=== PATIENT | male | born 1955 ===

== ENCOUNTER 2020-07-15 10:44 | Outpatient (REF) | payer MEDICARE, SELFPAY | END 2020-07-15 10:45 | disposition home or self-care (01) | LOC: HO.LAB 10:44 | PROVIDERS: Visit Provider Internal Medicine | DX: Z20.828 Contact with and (suspected) exposure to other viral communicable diseases (principal) | CPT/HCPCS: C9803; U0003 ==

== ENCOUNTER 2021-01-19 07:12 | Outpatient (REF) | payer MEDICARE, SELFPAY ==
[2021-01-19 08:03] LABS: Cholesterol 139 mg/dL; HDL Cholesterol 59 mg/dL; LDL Cholesterol Calculated 71 mg/dl; Triglycerides 48 mg/dL
== END 2021-01-19 07:13 | disposition home or self-care (01) ==
LOC: HO.LAB 07:12
PROVIDERS: PCP Internal Medicine; Visit Provider Internal Medicine Cardiovascular Disease
DX: I25.10 Atherosclerotic heart disease of native coronary artery without angina pectoris (principal); E78.00 Pure hypercholesterolemia, unspecified
CPT/HCPCS: 36415; 80061

== ENCOUNTER → 2021-01-25 08:11 | Outpatient (BNVA) | payer MEDICARE, SELFPAY | PROVIDERS: PCP Internal Medicine; Visit Provider Internal Medicine Cardiovascular Disease | DX: I25.10 Atherosclerotic heart disease of native coronary artery without angina pectoris (principal); E78.00 Pure hypercholesterolemia, unspecified; Z82.49 Family history of ischemic heart disease and other diseases of the circulatory system | CPT/HCPCS: 93005; 99212 ==

== ENCOUNTER 2021-01-26 13:48 | Emergency (ER) | payer OTHER, MEDICARE, SELFPAY ==
--- NOTE | 2021-01-26 | ECG_ITS ---
Test Reason : CHEST PAIN Blood Pressure : / mmHG Vent. Rate : 096 BPM Atrial Rate : 096 BPM P-R Int : 178 ms QRS Dur : 080 ms QT Int : 342 ms P-R-T Axes : 061 -53 047 degrees QTc Int : 432 ms Normal sinus rhythm Possible Left atrial enlargement Left axis deviation Abnormal ECG When compared with ECG of 03-SEP-2001 22:18, Vent. rate has increased BY 39 BPM Left axis deviation Referred By: Mariia Luu Electronically Signed By:Nakul Sauceda
--- NOTE | ~2021-01-26 | XR_ITS ---
EXAMINATION: XR CHEST CLINICAL INFORMATION: Chest pain COMPARISON: Chest 04/12/2020 TECHNIQUE: Frontal view of the chest was obtained. FINDINGS: No significant abnormality is noted involving the heart, lungs, mediastinum, bony thorax or soft tissues. XR/XR chest 1V IMPRESSION: Unremarkable chest examination. No change from previous study 04/12/2020
[2021-01-26 13:56] VITALS: BP 126/78; BP 134/86; PULSE 102; PULSE 93; RESP 16; TEMP 36.6; O2SAT 100; O2SAT 97; BMI 24.3
--- NOTE | 2021-01-26 13:56 | ED.CHESTPAIN ---
HPI - Chest Pain General Chief Complaint: Chest Pain Stated Complaint: UNKNOWN Time Seen by Provider: 01/26/21 13:56 Source: patient and EMS Mode of arrival: EMS Limitations: no limitations History of Present Illness HPI narrative: 65 yo male with hx of HLD, fam hx of CAD, known CAD with 2009 cath showing chronic total occlusion of L circ with collaterals as well as 70% lesion in mid LAD has been managed medically for years, had chest pain/nausea and dizziness at home has been doing a lot of work, was near syncopal feels dehydrated from working outside MD complaint: chest pain Pertinent past history: coronary artery disease Onset (ago): minute(s) Timing of current episode: now resolved Prior episodes: No Onset: during rest (occurred while he was going to eat but did do work at home earlier) Pain location: left chest Pain radiation: none Severity: moderate Quality: heaviness Relieving factors: rest Exacerbating factors: exertion (has been exerting himself but also 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, no symptoms yesterday while working) Associated symptoms: nausea and dyspnea Treatment prior to arrival: aspirin Related Data Home Medications Medication Instructions Recorded Confirmed aspirin 81 mg tablet,delayed 81 mg PO DAILY 01/25/21 01/25/21 release atorvastatin 80 mg tablet 40 mg PO BEDTIME tab 01/25/21 01/25/21 cholecalciferol (vitamin D3) 25 25 mcg PO DAILY 01/25/21 01/25/21 mcg (1,000 unit) capsule Allergies Allergy/AdvReac Type Severity Reaction Status Date / Time shellfish derived Allergy Intermediate HIVES Verified 01/26/21 14:02 [SHELLFISH DERIVED] shellfish Allergy Unknown hives Uncoded 03/03/20 00:00 Review of Systems Review of Systems: Constitutional : No Weight loss, No Fever, No Chills ENT/Mouth : No sore throat, No Rhinorrhea Eyes: No Eye Pain, No Swelling Cardiovascular : pos Chest Pain, pos SOB, no Dyspnea on Exertion, No Orthopnea, No Edema, No Palpitations Respiratory : No Cough, No Sputum Gastrointestinal : pos Nausea, No Vomiting, No Diarrhea, No abdominal Pain, No Hematochezia, No Melena Genitourinary : No Dysuria, No Urinary Frequency Musculoskeletal : No joint pain, No Myalgias, No Joint Swelling Skin : No Skin Lesions, No rash Neuro : No Weakness, No Numbness, No Dizziness, No Headache Psych : No Anxiety/Panic, No Depression Heme/Lymph: No Bruising, No Lymphadenopathy Endocrine : No Polyuria, No Polydipsia All other systems reviewed and are negative [facility] Past Medical History Medical History Allergic rhinitis Coronary artery disease Erectile dysfunction Hypercholesterolemia Hypertension Vitamin D deficiency Surgical History History of hernia repair Hx of CABG Family History Family History (Updated 01/25/21 @ 08:44 by Edith Xiao Jose) Father Diabetes Mother CVD (cardiovascular disease) Social History Social History (Updated 01/26/21 @ 14:17 by Mariia Luu DO) Alcohol intake: current Alcohol intake frequency: a few times a month Patient Tobacco Use Status: Never used Tobacco Use of substances other than those prescribed or required for medical reasons: No Advance Directives: No Advance Directives Information Provided: Yes Physical Exam Vital Signs: Vital Signs: Last Vital Signs Temp 98 F 01/26/21 13:56 Pulse 70 01/26/21 15:15 Resp 12 01/26/21 15:15 BP 126/79 01/26/21 15:15 Pulse Ox 100 01/26/21 15:15 Body Mass Index 24.3 Appearance: Alert. Oriented X3. No acute distress. Eyes: Pupils equal, round and reactive to light. ENT: Pharynx normal. Neck: Normal inspection. Neck supple. CVS: Normal heart rate and rhythm. Pulses normal. Respiratory: No respiratory distress. Breath sounds normal. Abdomen: Soft and nontender. Skin: Skin warm and dry. Normal skin color. Normal skin turgor. Extremities: No lower extremity edema. No calf ttp Neuro: Oriented X 3. No motor deficit. No sensory deficit. Course Course Course Narrative: signed out to Dr. 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 Lab Data Result diagrams: 01/26/21 14:09 01/26/21 14:09 Labs: Lab Results 01/26/21 01/26/21 01/26/21 Range/Units 14:09 14:09 14:09 WBC 4.2 L (4.8-10.8) X10*3/uL RBC 4.25 L (4.60-5.80) X10*6/uL Hgb 13.7 L (14.0-18.0) g/dl Hct 40.5 L (42-52) % MCV 95.3 (80-98) fL MCH 32.2 (27.0-33.0) pg MCHC 33.8 (31.0-36.0) g/dl RDW 12.6 (11.0-16.0) % Plt Count 162 (160-400) X10*3/uL MPV 9.7 (9.4-12.4) fL Immature Gran % (Auto) 0.0 (0.0-0.4) % Neut % (Auto) 41.0 L (45-73) % Lymph % (Auto) 43.5 H (20-40) % [place] % (Auto) 11.1 H (2-11) % Eos % (Auto) 3.4 (0-4) % Baso % (Auto) 1.0 (0-2) % Lymph # (Auto) 1.8 (1.2-4.9) X10*3/uL [place] # (Auto) 0.5 (0.1-1.2) X10*3/uL Eos # (Auto) 0.1 (0.0-0.4) X10*3/uL Baso # (Auto) 0.0 (0.0-0.2) X10*3/uL Abs Immat Gran (auto) 0.00 (0.00-0.03) X10*3/uL Absolute Neuts (auto) 1.7 L (2.0-8.3) X10*3/uL Absolute Nucleated RBC 0.000 (0.0-0.012) X10*3/uL Nucleated RBC % (auto) 0.0 (0.0-0.2) /100WBC Hold Blue Top SEE NOTE Sodium 140 (135-145) mmol/L Potassium 4.2 (3.3-5.1) mmol/L Chloride 106 (96-108) mmol/L Carbon Dioxide 28 (22-29) mmol/L Anion Gap 10 L (12-20) BUN 20 H (9-16) mg/dL Creatinine 1.32 (0.5-1.4) mg/dL Estim Creat Clear Calc 60.4 Estimated GFR 54 Random Glucose 109 (60-115) mg/dL Calcium 9.6 (8.4-10.2) mg/dL Magnesium 2.1 (1.6-2.6) mg/dL Total Bilirubin 1.2 H (0.0-1.0) mg/dL Direct Bilirubin 0.5 (0.0-0.5) mg/dL AST 28 (5-37) U/L ALT 34 (0-40) U/L Alkaline Phosphatase 105 (39-117) U/L Troponin I High Sens (<3.5-35.0) ng/L Total Protein 6.3 L (6.5-8.0) g/dL Albumin 4.0 (3.5-5.0) g/dL Lipase 29 (8-78) U/L Urine Color Urine Appearance Urine pH (5.0-8.0) Ur Specific [place] (1.005-1.025) Urine Protein (NEG-TRACE) MG/DL Urine Glucose (UA) (NEG) MG/DL Urine Ketones (NEG) MG/DL Urine Blood (NEG) Urine Nitrite (NEG) Ur Leukocyte Esterase (NEG) 01/26/21 01/26/21 Range/Units 14:09 14:19 WBC (4.8-10.8) X10*3/uL RBC (4.60-5.80) X10*6/uL Hgb (14.0-18.0) g/dl Hct (42-52) % MCV (80-98) fL MCH (27.0-33.0) pg MCHC (31.0-36.0) g/dl RDW (11.0-16.0) % Plt Count (160-400) X10*3/uL MPV (9.4-12.4) fL Immature Gran % (Auto) (0.0-0.4) % Neut % (Auto) (45-73) % Lymph % (Auto) (20-40) % [place] % (Auto) (2-11) % Eos % (Auto) (0-4) % Baso % (Auto) (0-2) % Lymph # (Auto) (1.2-4.9) X10*3/uL [place] # (Auto) (0.1-1.2) X10*3/uL Eos # (Auto) (0.0-0.4) X10*3/uL Baso # (Auto) (0.0-0.2) X10*3/uL Abs Immat Gran (auto) (0.00-0.03) X10*3/uL Absolute Neuts (auto) (2.0-8.3) X10*3/uL Absolute Nucleated RBC (0.0-0.012) X10*3/uL Nucleated RBC % (auto) (0.0-0.2) /100WBC Hold Blue Top Sodium (135-145) mmol/L Potassium (3.3-5.1) mmol/L Chloride (96-108) mmol/L Carbon Dioxide (22-29) mmol/L Anion Gap (12-20) BUN (9-16) mg/dL Creatinine (0.5-1.4) mg/dL Estim Creat Clear Calc Estimated GFR Random Glucose (60-115) mg/dL Calcium (8.4-10.2) mg/dL Magnesium (1.6-2.6) mg/dL Total Bilirubin (0.0-1.0) mg/dL Direct Bilirubin (0.0-0.5) mg/dL AST (5-37) U/L ALT (0-40) U/L Alkaline Phosphatase (39-117) U/L Troponin I High Sens < 3.5 (<3.5-35.0) ng/L Total Protein (6.5-8.0) g/dL Albumin (3.5-5.0) g/dL Lipase (8-78) U/L Urine Color YELLOW Urine Appearance CLEAR Urine pH 6.5 (5.0-8.0) Ur Specific [place] 1.020 (1.005-1.025) Urine Protein NEG (NEG-TRACE) MG/DL Urine Glucose (UA) NEG (NEG) MG/DL Urine Ketones NEG (NEG) MG/DL Urine Blood NEG (NEG) Urine Nitrite NEG (NEG) Ur Leukocyte Esterase NEG (NEG) ECG Data ECG #1: Attestation: I personally reviewed and interpreted this ECG as follows: ECG interpretation date: 01/26/21 ECG interpretation time: 14:17 Interpretation: Rate: 96 Rhythm: NSR [place]: left Normal P waves. Normal REJI. Normal QRS complex. ST T wave : nonspecific, NO MARIBELL qTC: normal prior studies: no acute ischemia The study has been interpreted contemporaneously by me. . Discharge Plan Discharge Clinical Impression: Near syncope Chest pain Qualifiers: Chest pain type: unspecified Qualified Code(s): R07.9 - Chest pain, unspecified Prescriptions: No Action aspirin [Adult Low Dose Aspirin] 81 mg tablet,delayed release (DR/EC) 81 mg PO DAILY RF: 0 cholecalciferol (vitamin D3) 25 mcg (1,000 unit) capsule 25 mcg PO DAILY RF: 0 atorvastatin 80 mg tablet 40 mg PO BEDTIME RF: 0
[2021-01-26 14:13] LABS: MANUAL DIFF FLAG NO
[2021-01-26 14:15] LABS: Eosinophils Absolute Auto 0.1 X10*3/uL (0.0-0.4); Eosinophils Percent Auto 3.4 % (0-4); Hematocrit 40.5 % (42-52); Hemoglobin 13.7 g/dl (14.0-18.0); Lymphocytes Absolute Auto 1.8 X10*3/uL (1.2-4.9); Lymphocytes Percent Auto 43.5 % (20-40); Mean Corpuscular HGB Conc 33.8 g/dl (31.0-36.0); Mean Corpuscular Hemoglobin 32.2 pg (27.0-33.0); Mean Corpuscular Volume 95.3 fL (80-98); Mean Platelet Volume 9.7 fL (9.4-12.4); Monocytes Absolute Auto 0.5 X10*3/uL (0.1-1.2); Monocytes Percent Auto 11.1 % (2-11); Neutrophils Absolute Auto 1.7 X10*3/uL (2.0-8.3); Platelet Count 162 X10*3/uL (160-400); Red Blood Count 4.25 X10*6/uL (4.60-5.80); Red Cell Distribution Width 12.6 % (11.0-16.0); White Blood Count 4.2 X10*3/uL (4.8-10.8)
[2021-01-26 14:27] LABS: Appearance Urine CLEAR; Color Urine YELLOW; Glucose Urine UA NEG (NEG); Leukocyte Esterase Urine NEG (NEG); Nitrite Urine NEG (NEG); PH 6.5 (5.0-8.0); Urine Blood NEG (NEG); Urine Ketones NEG (NEG); Urine Protein NEG (NEG-TRACE)
[2021-01-26] MEDS: 0.9 % Sodium Chloride 1,000 ML 999 ML IVCONT ×2 (14:43→15:13)
[2021-01-26 14:45] LABS: Alanine Aminotransferase 34 U/L (0-40); Alkaline Phosphatase 105 U/L (39-117); Anion Gap 10 (12-20); Aspartate Amino Transferase 28 U/L (5-37); Bilirubin Direct 0.5 mg/dL (0.0-0.5); Bilirubin Total 1.2 mg/dL (0.0-1.0); Blood Urea Nitrogen 20 mg/dL (9-16); Calcium 9.6 mg/dL (8.4-10.2); Carbon Dioxide 28 mmol/L (22-29); Chloride 106 mmol/L (96-108); Creatinine Clr Calc Pharmacy 60.4; Estimated Glomerular Filt Rate 54; Glucose Random 109 mg/dL (60-115); Lipase 29 U/L (8-78); Magnesium 2.1 mg/dL (1.6-2.6); Potassium 4.2 mmol/L (3.3-5.1); Sodium 140 mmol/L (135-145); Total Protein 6.3 g/dL (6.5-8.0)
[2021-01-26 14:47] LABS: Troponin-I High Sensitivity < 3.5 ng/L (<3.5-35.0)
[2021-01-26 15:15] VITALS: BP 126/79; PULSE 70; PULSE 74; RESP 12; O2SAT 100
[2021-01-26 17:14] VITALS: BP 127/89; PULSE 73; RESP 18; O2SAT 100
--- NOTE | 2021-01-26 17:15 | PC.NURSE ---
Second trop drawn and awaiting results at this time. PT is aware of plan.
[2021-01-26 17:49] LABS: Troponin-I High Sensitivity 4.4 ng/L (<3.5-35.0)
== END 2021-01-26 19:39 | disposition home or self-care (01) ==
PROVIDERS: Emergency Provider Emergency Medicine
DX: R55 Syncope and collapse (principal); R07.9 Chest pain, unspecified; R11.0 Nausea; E78.5 Hyperlipidemia, unspecified; I10 Essential (primary) hypertension; Z95.1 Presence of aortocoronary bypass graft; Z79.82 Long term (current) use of aspirin; Z79.02 Long term (current) use of antithrombotics/antiplatelets
CPT/HCPCS: 36415; 71045; 80048; 80076; 81003; 83690; 83735; 84484; 85025; 93005; 96360; 99284

== ENCOUNTER → 2021-02-09 10:16 | Outpatient (REF) | payer MEDICARE, SELFPAY ==
--- NOTE | 2021-02-09 10:19 | CA_ITS ---
Transthoracic Echocardiogram Patient (Last, First, Middle): Herbert Cobb, Gender: Male Date of : 1955 Age: 65 Procedure Date: 02/09/2021 Procedure Type: Transthoracic Echocardiogram Location: OP Height: 185.42 cm Weight: 79.38 kg BSA: 2.03 m2 Heart Rate: bpm BP: 117 / 50 mmHg Gearman: RASTA Referring MD: Taz Petit MD Symptoms: Z82.49 - Family history of ischemic heart disease and oth... Study Quality: Good ECG Rhythm: Sinus Conclusions: - The left ventricular systolic function is low normal. The visually estimated ejection fraction is between 50-55%. - No obvious valvular pathology seen on this study. Findings Left Ventricle Normal left ventricular cavity size. There is normal left ventricular wall thickness. The left ventricular systolic function is low normal. The visually estimated ejection fraction is between 50-55%. There is no evidence of regional wall motion abnormalities. Diastolic function is normal for age. E/E prime ratio is <8, consistent with normal filling pressures. Right Ventricle Normal right ventricular cavity size and systolic function. Atria Both atria are normal in size. Aortic Valve There is a normal trileaflet aortic valve. There is no aortic valve stenosis. There is no aortic valve regurgitation. Mitral Valve The mitral valve appears normal. There is no mitral valve regurgitation. There is no mitral valve stenosis. Pulmonic Valve The pulmonic valve was not well visualized. Tricuspid Valve Normal tricuspid valve structure. There is trace tricuspid valve regurgitation. The pulmonary artery systolic pressure is normal. Great Vessels The asc aorta and aortic arch are normal in size. Venous The inferior vena cava is normal in size and collapses greater than 50% with inspiration. Pericardium/Pleural There is no evidence of pericardial effusion. Prior Study Comparison No prior study available for comparison. Recommendations, Care & Conclusions No obvious valvular pathology seen on this study. Measurements 2D Linear Measurements IVSd: 0.99 0.6-0.9/0.6-1.0 cm LVIDd: 4.27 3.9-5.3/4.2-5.9 cm LVPWd: 1.06 0.7-1.1 cm Ao Root: 3.81 2.1-3.5 cm LV Mass: 181.86 67-162/88-224 g LVOT Diam: 2.27 3.0+(-)1.3 cm Mitral Valve MV Pk E: 0.45 MV PK A: 0.50 MV Decel Time: 277.38 E/A: 0.89 E'Lateral: 0.08 E'Medial: 0.05 Decel Darke: 1.62 Aortic Valve AoV Pk Damian: 1.07 AoV Mn Damian: 0.77 AoV VTI: 0.23 AoV Pk Grad: 4.54 Aov Mn Grad: 2.56 LVOT LVOT Pk Damian: 1.10 LVOT Mn Damian: 0.69 LVOT VTI: 0.21 LVOT Pk Grad: 4.85 LVOT Mn Grad: 2.24 LVOT Diam: 2.27 LVOT Area: 4.06 Diastolic Function MV Pk E: 0.45 MV Pk A: 0.50 E/A: 0.89 E'Medial: 0.05 E' Laterial: 0.08 Tricuspid Valve TR Pk Damian: 2.40 TR Pk Grad: 23.10 RA Press: 3.00 RVSP: 26.00 Great Vessels Aorta Ao Root-2D: 3.81 2.0-3.7 cm Ao Asc: 3.45 2.1-3.4 cm Ao Arch: 3.16 Updated in Other Vendor System with Status of Final Liang Morgan MD electronically signed on 02/10/2021 11:19:33 AM with status of Final
== END ==
LOC: HO.CARD 10:16
PROVIDERS: Visit Provider Internal Medicine Cardiovascular Disease
DX: I25.10 Atherosclerotic heart disease of native coronary artery without angina pectoris (principal); Z82.49 Family history of ischemic heart disease and other diseases of the circulatory system
CPT/HCPCS: 93306

== ENCOUNTER 2021-03-04 09:29 | Outpatient (REF) | payer MEDICARE, SELFPAY ==
[2021-03-04 10:17] LABS: MANUAL DIFF FLAG NO
[2021-03-04 10:22] LABS: Basophils Percent Auto 0.7 % (0-2); Eosinophils Absolute Auto 0.3 X10*3/uL (0.0-0.4); Eosinophils Percent Auto 6.4 % (0-4); Hematocrit 43.5 % (42-52); Hemoglobin 14.7 g/dl (14.0-18.0); Imm Gran Abs Auto 0.01 X10*3/uL (0.00-0.03); Imm Gran Pct Auto 0.2 % (0.0-0.4); Lymphocytes Absolute Auto 1.9 X10*3/uL (1.2-4.9); Lymphocytes Percent Auto 45.5 % (20-40); Mean Corpuscular HGB Conc 33.8 g/dl (31.0-36.0); Mean Corpuscular Hemoglobin 32.5 pg (27.0-33.0); Mean Platelet Volume 9.8 fL (9.4-12.4); Monocytes Absolute Auto 0.5 X10*3/uL (0.1-1.2); Monocytes Percent Auto 11.5 % (2-11); Neutrophils Absolute Auto 1.5 X10*3/uL (2.0-8.3); Neutrophils Percent Auto 35.7 % (45-73); Platelet Count 175 X10*3/uL (160-400); Red Blood Count 4.53 X10*6/uL (4.60-5.80); Red Cell Distribution Width 12.5 % (11.0-16.0); White Blood Count 4.1 X10*3/uL (4.8-10.8)
[2021-03-04 10:42] LABS: Alanine Aminotransferase 31 U/L (0-40); Albumin Level 3.9 g/dL (3.5-5.0); Alkaline Phosphatase 112 U/L (39-117); Anion Gap 12 (12-20); Aspartate Amino Transferase 24 U/L (5-37); Bilirubin Total 0.9 mg/dL (0.0-1.0); Blood Urea Nitrogen 13 mg/dL (9-16); Calcium 9.4 mg/dL (8.4-10.2); Carbon Dioxide 28 mmol/L (22-29); Chloride 106 mmol/L (96-108); Cholesterol 149 mg/dL; Estimated Glomerular Filt Rate > 60; Glucose Random 101 mg/dL (60-115); HDL Cholesterol 55 mg/dL; LDL Cholesterol Calculated 83 mg/dl; Potassium 4.3 mmol/L (3.3-5.1); Sodium 142 mmol/L (135-145); Total Protein 6.5 g/dL (6.5-8.0); Triglycerides 58 mg/dL
[2021-03-04 11:04] LABS: Free T4 (Free Thyroxine) 0.85 ng/dL (0.71-1.85); Prostate Specific Antigen Scr 0.69 ng/mL (<0.05-4.0); Thyroid Stimulating Hormone 1.06 uIU/mL (0.32-4.0)
[2021-03-04 11:52] LABS: Folate 8.5 ng/mL (> or = 4.0); Vitamin B12 544 pg/mL (200-900)
== END 2021-03-04 09:30 | disposition home or self-care (01) ==
LOC: HO.LAB 09:29
PROVIDERS: PCP Internal Medicine; Visit Provider Internal Medicine
DX: Z12.5 Encounter for screening for malignant neoplasm of prostate (principal); E78.00 Pure hypercholesterolemia, unspecified; I10 Essential (primary) hypertension
CPT/HCPCS: 36415; 80053; 80061; 82607; 82746; 84153; 84439; 84443; 85025

== ENCOUNTER 2021-06-09 12:56 | Emergency (ER) | payer MEDICARE, SELFPAY ==
--- NOTE | ~2021-06-09 | XR_ITS ---
EXAMINATION: XR CHEST CLINICAL INFORMATION: Shortness of breath COMPARISON: Previous chest x-ray most recent January 2021 TECHNIQUE: Frontal view of the chest was obtained. FINDINGS: The cardiac and mediastinal contours are stable. The lungs are clear. There is no pleural effusion or pneumothorax. There are degenerative changes of the spine. Postsurgical changes to the right shoulder. XR/XR chest 1V IMPRESSION: No evidence for acute disease in the chest.
[2021-06-09 13:00] VITALS: PULSE 171; RESP 22; TEMP 36.6; BMI 23.7
[2021-06-09 13:19] LABS: Basophils Percent Auto 0.5 % (0-2); Eosinophils Absolute Auto 0.1 X10*3/uL (0.0-0.4); Eosinophils Percent Auto 1.9 % (0-4); Hematocrit 44.6 % (42-52); Hemoglobin 15.3 g/dl (14.0-18.0); Imm Gran Abs Auto 0.01 X10*3/uL (0.00-0.03); Imm Gran Pct Auto 0.2 % (0.0-0.4); Lymphocytes Absolute Auto 2.6 X10*3/uL (1.2-4.9); Lymphocytes Percent Auto 61.2 % (20-40); MANUAL DIFF FLAG SCAN; Mean Corpuscular HGB Conc 34.3 g/dl (31.0-36.0); Mean Corpuscular Hemoglobin 32.5 pg (27.0-33.0); Mean Corpuscular Volume 94.7 fL (80-98); Mean Platelet Volume 9.7 fL (9.4-12.4); Monocytes Absolute Auto 0.5 X10*3/uL (0.1-1.2); Monocytes Percent Auto 12.4 % (2-11); Neutrophils Percent Auto 23.8 % (45-73); Platelet Count 167 X10*3/uL (160-400); Red Blood Count 4.71 X10*6/uL (4.60-5.80); Red Cell Distribution Width 12.2 % (11.0-16.0); SCAN SMEAR FLAG 1; White Blood Count 4.3 X10*3/uL (4.8-10.8)
--- NOTE | 2021-06-09 13:20 | ED_ITS ---
HPI - Chest Pain General Chief Complaint: Chest Pain Stated Complaint: chest pain Time Seen by Provider: 06/09/21 13:17 Source: patient Mode of arrival: ambulatory Limitations: no limitations History of Present Illness HPI narrative: Patient comes emergency room complaining of palpitations. Patient states that today patient was standing, leaning forward, then suddenly started feeling palpitations. Patient states it is the 1st time that he feels this. Patient had mild shortness of breath, chest discomfort during the episode. On arrival to the Emergency Room heart rate was 175, by the time the patient went to his room, patient went back into sinus rhythm with heart rate of 80 and blood pressure 145 systolic. Patient states that this time he no longer has chest pain or shortness of breath, no palpitations. Related Data Home Medications Medication Instructions Recorded Confirmed aspirin 81 mg tablet,delayed 81 mg PO DAILY 01/25/21 03/07/21 release (Adult Low Dose Aspirin) atorvastatin 80 mg tablet 40 mg PO BEDTIME tab 01/25/21 03/07/21 cholecalciferol (vitamin D3) 25 25 mcg PO DAILY 01/25/21 03/07/21 mcg (1,000 unit) capsule Previous Rx's Medication Instructions Recorded metoprolol succinate 50 mg 50 mg PO DAILY #30 tab 06/09/21 tablet,extended release 24 hr (Toprol XL) Allergies Allergy/AdvReac Type Severity Reaction Status Date / Time shellfish derived Allergy Intermediate HIVES Verified 03/07/21 10:32 [SHELLFISH DERIVED] shellfish Allergy Severe Hives Uncoded 03/07/21 10:32 Review of Systems Review of Systems: Constitutional : No Weight loss, No Fever, No Chills, No Night Sweats, No Fatigue, No Malaise ENT/Mouth : No Hearing loss, No Ear Pain, No Nasal Congestion, No Sinus Pain, No Hoarseness, No sore throat, No Rhinorrhea, No Swallowing Difficulty Eyes: No Eye Pain, No Swelling, No Redness, No Foreign Body, No Discharge, No Vision Changes Cardiovascular : Patient complaining of chest discomfort during rapid palpitations, shortness of breath, now all symptoms resolved Respiratory : No Cough, No Sputum, No Wheezing, No Smoke Exposure, No Dyspnea Gastrointestinal : No Nausea, No Vomiting, No Diarrhea, No Constipation, No abd ominal Pain, No Hematochezia, No Melena Genitourinary : no irregular bleeding, No Dysuria, No Urinary Frequency, No Hematuria, No Urinary Incontinence, No Urgency, No Flank Pain, No Urinary Flow Changes, No Hesitancy Musculoskeletal : No joint pain, No Myalgias, No Joint Swelling Skin : No Skin Lesions, No rash Neuro : No Weakness, No Numbness, No Paresthesias, No Loss of Consciousness, No Dizziness, No Headache Psych : No Anxiety/Panic, No Depression, No SI/HI/AH/VH, No Social Issues, Heme/Lymph: No Bruising, No Bleeding,No Lymphadenopathy Endocrine : No Polyuria, No Polydipsia, No Temperature Intolerance [facility] Past Medical History Medical History Allergic rhinitis Coronary artery disease Erectile dysfunction Hypercholesterolemia Hypertension Vitamin D deficiency Surgical History History of hernia repair Hx of CABG Family History Family History (Updated 01/25/21 @ 08:44 by MARY Sykes) Father Diabetes Mother CVD (cardiovascular disease) Social History Social History (Updated 03/07/21 @ 11:07 by Ziggy Dey MD) Alcohol intake: current Alcohol intake frequency: a few times a month Patient Tobacco Use Status: Never used Tobacco Years Smoked: smokes pot Advance Directives: No Advance Directives Information Provided: No Physical Exam Vital Signs: Vital Signs: Last Vital Signs Temp 98 F 06/09/21 13:00 Pulse 75 06/09/21 14:33 Resp 14 06/09/21 13:22 BP 132/92 H 06/09/21 14:33 Pulse Ox 100 06/09/21 13:22 Body Mass Index 23.7 Const: Other: Appearance: Alert. Oriented X3. No acute distress. Eyes: Pupils equal, round and reactive to light. ENT: Pharynx normal. Neck: Normal inspection. Neck supple. No lymph nodes noted. No crepitus CVS: Normal heart rate and rhythm. Pulses normal. Normal S1 and S2 Respiratory: No respiratory distress. Breath sounds normal. No Wheezing. No rales Abdomen: Soft and nontender. No rigidity. No distention. good BS x4 Skin: Skin warm and dry. Normal skin color. Normal skin turgor. Extremities: No lower extremity edema. No Lacerations. No Rash Neuro: Oriented X 3. No motor deficit. No sensory deficit. Moving all extermities. No slurred speech. Course Course Course Narrative: Patient remains in sinus rhythm, asymptomatic. I discussed the patient with Dr. Petit, will be started on Toprol 50 mg, 1st dose given in the ED MDM - Chest Pain Lab Data Result diagrams: 06/09/21 13:15 06/09/21 13:15 Labs: Lab Results 06/09/21 06/09/21 06/09/21 Range/Units 13:15 13:15 13:15 WBC 4.3 L (4.8-10.8) X10*3/uL RBC 4.71 (4.60-5.80) X10*6/uL Hgb 15.3 (14.0-18.0) g/dl Hct 44.6 (42-52) % MCV 94.7 (80-98) fL MCH 32.5 (27.0-33.0) pg MCHC 34.3 (31.0-36.0) g/dl RDW 12.2 (11.0-16.0) % Plt Count 167 (160-400) X10*3/uL MPV 9.7 (9.4-12.4) fL Immature Gran % (Auto) 0.2 (0.0-0.4) % Neut % (Auto) 23.8 L (45-73) % Lymph % (Auto) 61.2 H (20-40) % [place] % (Auto) 12.4 H (2-11) % Eos % (Auto) 1.9 (0-4) % Baso % (Auto) 0.5 (0-2) % Lymph # (Auto) 2.6 (1.2-4.9) X10*3/uL [place] # (Auto) 0.5 (0.1-1.2) X10*3/uL Eos # (Auto) 0.1 (0.0-0.4) X10*3/uL Baso # (Auto) 0.0 (0.0-0.2) X10*3/uL Abs Immat Gran (auto) 0.01 (0.00-0.03) X10*3/uL Absolute Neuts (auto) 1.0 L (2.0-8.3) X10*3/uL Absolute Nucleated RBC 0.000 (0.0-0.012) X10*3/uL Nucleated RBC % (auto) 0.0 (0.0-0.2) /100WBC Smear Tech's Comments VERIFIED Sodium 136 (135-145) mmol/L Potassium 4.1 (3.3-5.1) mmol/L Chloride 103 (96-108) mmol/L Carbon Dioxide 27 (22-29) mmol/L Anion Gap 10 L (12-20) BUN 13 (9-16) mg/dL Creatinine 1.16 (0.5-1.4) mg/dL Estim Creat Clear Calc 68.7 Estimated GFR > 60 Random Glucose 117 H (60-115) mg/dL Calcium 9.3 (8.4-10.2) mg/dL Troponin I High Sens < 3.5 (<3.5-35.0) ng/L ECG Data ECG #1: Attestation: I personally reviewed and interpreted this ECG as follows: (SVT, heart rate 165, QTC 450, no ST segment depression or elevation) ECG #2: Attestation: I personally reviewed and interpreted this ECG as follows: (Normal sinus rhythm, rate 82, no ST segment depression or elevation, not to inversion, QTC 425) Discharge Plan Discharge Clinical Impression: SVT (supraventricular tachycardia) Patient Disposition: Home, Self-Care Instructions: Supraventricular Tachycardia (ED) Additional Instructions: Please follow-up with your primary care physician tomorrow. If you have any worsening or new symptoms, please return to the emergency room or call 911 Prescriptions: New metoprolol succinate [Toprol XL] 50 mg tablet extended release 24 hr 50 mg PO DAILY Qty: 30 RF: 0 No Action aspirin [Adult Low Dose Aspirin] 81 mg tablet,delayed release (DR/EC) 81 mg PO DAILY RF: 0 cholecalciferol (vitamin D3) 25 mcg (1,000 unit) capsule 25 mcg PO DAILY RF: 0 atorvastatin 80 mg tablet 40 mg PO BEDTIME RF: 0
--- NOTE | 2021-06-09 13:20 | ECG_ITS ---
Test Reason : chest pain Blood Pressure : / mmHG Vent. Rate : 082 BPM Atrial Rate : 082 BPM P-R Int : 192 ms QRS Dur : 084 ms QT Int : 364 ms P-R-T Axes : 063 -64 041 degrees QTc Int : 425 ms Normal sinus rhythm Possible Left atrial enlargement Left axis deviation Abnormal ECG When compared with ECG of 26-JAN-2021 13:59, No significant change was found Referred By: Daja Barros Electronically Signed By:DEBBIE BAPTISTE MD
[2021-06-09 13:22] VITALS: BP 147/99; PULSE 84; RESP 14; O2SAT 100
[2021-06-09 13:39] LABS: Anion Gap 10 (12-20); Blood Urea Nitrogen 13 mg/dL (9-16); Calcium 9.3 mg/dL (8.4-10.2); Carbon Dioxide 27 mmol/L (22-29); Chloride 103 mmol/L (96-108); Creatinine Clr Calc Pharmacy 68.7; Estimated Glomerular Filt Rate > 60; Glucose Random 117 mg/dL (60-115); Potassium 4.1 mmol/L (3.3-5.1); SLIDE REVIEW VERIFIED; Sodium 136 mmol/L (135-145)
[2021-06-09 13:46] LABS: Troponin-I High Sensitivity < 3.5 ng/L (<3.5-35.0)
[2021-06-09 14:33] VITALS: BP 132/92; PULSE 75
[2021-06-09] MEDS: Metoprolol Succinate ER 50 MG TAB.ER.24H PO (14:33)
[2021-06-09 14:43] VITALS: BP 137/89; PULSE 77; RESP 14; O2SAT 98
[2021-06-09 15:03] VITALS: BP 137/79; PULSE 72; RESP 14; O2SAT 95
== END 2021-06-09 15:04 | disposition home or self-care (01) ==
PROVIDERS: Emergency Provider Emergency Medicine; PCP Internal Medicine
DX: I47.1 Supraventricular tachycardia (principal); I10 Essential (primary) hypertension; I25.10 Atherosclerotic heart disease of native coronary artery without angina pectoris; Z79.82 Long term (current) use of aspirin
CPT/HCPCS: 36415; 71045; 80048; 84484; 85025; 93005; 99285

== ENCOUNTER → 2021-06-21 15:09 | Outpatient (BNVA) | payer MEDICARE, SELFPAY | PROVIDERS: PCP Internal Medicine; Referring Provider Internal Medicine; Visit Provider Internal Medicine Cardiovascular Disease | DX: I47.1 Supraventricular tachycardia (principal); I25.10 Atherosclerotic heart disease of native coronary artery without angina pectoris | CPT/HCPCS: 99212 ==

== ENCOUNTER → 2021-07-15 10:27 | Outpatient (REF) | payer MEDICARE, SELFPAY ==
--- NOTE | 2021-07-15 10:30 | CA_ITS ---
Transthoracic Echocardiogram Patient (Last, First, Middle): Herbert Cobb, Gender: Male Date of : 1955 Age: 65 Procedure Date: 07/15/2021 Procedure Type: Transthoracic Echocardiogram Location: OP Height: 182.88 cm Weight: 79.38 kg BSA: 2.01 m2 Heart Rate: bpm BP: 160 / 100 mmHg Bar Hostess: SULAIMAN Referring MD: Taz Petit MD Symptoms: I25.10 - Atherosclerotic heart disease of [place] coronary... Conclusions: - Normal left ventricular size and systolic function. There is mildly increased left ventricular wall thickness. The visually estimated ejection fraction is between 55-60%. - Normal right ventricular cavity size and systolic function. - The left atrium is mildly dilated. The right atrium is likely dilated. - There is mild dilatation of the ascending aorta measuring 3.60 cm. Findings Left Ventricle Normal left ventricular size and systolic function. There is mildly increased left ventricular wall thickness. The visually estimated ejection fraction is between 55-60%. There is no evidence of regional wall motion abnormalities. Diastolic function is normal for age. Right Ventricle Normal right ventricular cavity size and systolic function. Atria The left atrium is mildly dilated. The right atrium is likely dilated. Aortic Valve Normal aortic valve structure and function. There is no aortic valve stenosis. There is no aortic valve regurgitation. Mitral Valve Normal mitral valve structure and function. There is no mitral valve regurgitation. There is no mitral valve stenosis. Pulmonic Valve Normal pulmonic valve structure and function. There is trace pulmonic valve regurgitation. Tricuspid Valve Normal tricuspid valve structure. There is trace tricuspid valve regurgitation. Normal right atrial pressure. There is no evidence of pulmonary hypertension. Great Vessels There is mild dilatation of the ascending aorta measuring 3.60 cm. The visualized portions of the pulmonary artery and branches are normal. Venous The inferior vena cava is normal in size and collapses greater than 50% with inspiration. Pericardium/Pleural There is no evidence of pericardial effusion. Prior Study Comparison Changes noted compared to prior study dated: 02/09/2021. LVEF 55-60%, Mildly dilated LA, mildly dilated aorta 3.6 cm. Measurements 2D Linear Measurements IVSd: 1.20 0.6-0.9/0.6-1.0 cm LVIDd: 4.25 3.9-5.3/4.2-5.9 cm LVIDd Index: 2.11 2.4-3.2/2.2-3.1 cm/m2 LVIDs: 2.73 2.0-3.6 cm LVPWd: 1.28 0.7-1.1 cm Ao Root: 3.40 2.1-3.5 cm LA Diam: 3.40 2.7-3.8/3.0-4.0 cm LAIDs Index: 1.69 1.5-2.3 cm/m2 LV Mass: 237.18 67-162/88-224 g LV Mass Index: 118.00 43-95/49-115 g/m2 LVOT Diam: 2.00 3.0+(-)1.3 cm 2D Systolic Function EF 4C: 57.60 >55% EF 2C: 62.30 >55% EF BiP: 59.80 >55% Mitral Valve MV Pk E: 0.53 MV PK A: 0.33 MV Decel Time: 173.00 E/A: 1.60 E'Lateral: 9.14 E'Medial: 6.64 E/E' Med: 7.90 E/E' Lat: 5.80 PHT: 51.00 MVA PHT: 4.31 Decel [place]: 3.05 Aortic Valve AoV Pk Damian: 1.26 AoV Pk Grad: 6.00 LVOT LVOT Pk Damian: 0.99 LVOT Mn Damian: 0.62 LVOT VTI: 0.23 LVOT Pk Grad: 4.00 LVOT Mn Grad: 2.00 LVOT Diam: 2.00 LVOT Area: 3.14 Diastolic Function MV Pk E: 0.53 MV Pk A: 0.33 E/A: 1.60 E'Medial: 6.64 E/E' Med: 7.90 E' Laterial: 9.14 E/E' Lat: 5.80 Right Ventricle TAPSE (mm): 2.03 Tricuspid Valve TR Pk Damian: 2.16 TR Pk Grad: 19.00 RVSP: 22.00 Great Vessels Aorta Ao Root-2D: 3.40 2.0-3.7 cm Ao Asc: 3.60 2.1-3.4 cm Updated in Other Vendor System with Status of Final Nakul Sauceda MD electronically signed on 07/18/2021 7:53:28 PM with status of Final
--- NOTE | 2021-07-15 10:30 | HM_ITS ---
Conclusion: 1. Patient was monitored for total period of 3 days and 9 hours 2. Baseline rhythm is normal sinus rhythm with average heart rate of 66 beats per minute. 3. No significant pauses or profound bradycardia noted 4. Rare ectopy noted 5. No patient reported events MTDD
== END ==
LOC: HO.CARD 10:27
PROVIDERS: Visit Provider Internal Medicine Cardiovascular Disease
DX: R07.9 Chest pain, unspecified (principal); I25.10 Atherosclerotic heart disease of native coronary artery without angina pectoris; I10 Essential (primary) hypertension; I47.1 Supraventricular tachycardia
CPT/HCPCS: 93242; 93306

== ENCOUNTER → 2021-08-11 12:20 | Outpatient (BNVA) | payer MEDICARE, SELFPAY | PROVIDERS: PCP Internal Medicine; Referring Provider Internal Medicine; Visit Provider Internal Medicine Cardiovascular Disease | DX: I47.1 Supraventricular tachycardia (principal); I25.10 Atherosclerotic heart disease of native coronary artery without angina pectoris; I10 Essential (primary) hypertension | CPT/HCPCS: 99212 ==

== ENCOUNTER → 2021-10-11 11:12 | Outpatient (REF) | payer MEDICARE, SELFPAY | LOC: HO.SL 11:12 | PROVIDERS: PCP Internal Medicine; Visit Provider Internal Medicine Cardiovascular Disease | DX: G47.10 Hypersomnia, unspecified (principal); I10 Essential (primary) hypertension | CPT/HCPCS: 95806 ==

== ENCOUNTER 2022-01-16 08:28 | Emergency (ER) | payer OTHER, SELFPAY ==
--- NOTE | ~2022-01-16 | XR_ITS ---
EXAMINATION: XR CHEST CLINICAL INFORMATION: Cough and congestion. COMPARISON: None TECHNIQUE: Frontal view of the chest was obtained. FINDINGS: No significant abnormality is noted involving the heart, lungs, mediastinum, bony thorax or soft tissues. XR/XR chest 1V IMPRESSION: Unremarkable chest examination.
[2022-01-16 08:35] VITALS: BP 119/77; BP 130/84; PULSE 74; PULSE 86; RESP 16; TEMP 37.2; O2SAT 96; O2SAT 97; BMI 24.1
--- NOTE | 2022-01-16 08:39 | ECG_ITS ---
Test Reason : UPPER RESPIRATORY Blood Pressure : / mmHG Vent. Rate : 070 BPM Atrial Rate : 070 BPM P-R Int : 186 ms QRS Dur : 082 ms QT Int : 374 ms P-R-T Axes : 064 -67 051 degrees QTc Int : 403 ms Normal sinus rhythm Left axis deviation Abnormal ECG When compared with ECG of 09-JUN-2021 13:20, No significant change was found Referred By: Generic ED Physician Electronically Signed By:Nakul Sauceda
[2022-01-16 09:23] LABS: MANUAL DIFF FLAG NO
[2022-01-16 09:28] LABS: Basophils Percent Auto 0.6 % (0-2); Eosinophils Absolute Auto 0.2 X10*3/uL (0.0-0.4); Eosinophils Percent Auto 2.9 % (0-4); Hematocrit 42.9 % (42.0-52.0); Hemoglobin 14.8 g/dl (14.0-18.0); Lymphocytes Absolute Auto 1.6 X10*3/uL (1.2-4.9); Lymphocytes Percent Auto 31.4 % (20-40); Mean Corpuscular HGB Conc 34.5 g/dl (31.0-36.0); Mean Corpuscular Hemoglobin 33.2 pg (27.0-33.0); Mean Corpuscular Volume 96.2 fL (80.0-98.0); Monocytes Absolute Auto 0.7 X10*3/uL (0.1-1.2); Monocytes Percent Auto 14.2 % (2-11); Neutrophils Absolute Auto 2.7 x10*3/uL (2.0-8.3); Neutrophils Percent Auto 50.9 % (45-73); Platelet Count 129 X10*3/uL (160-400); Red Blood Count 4.46 X10*6/uL (4.60-5.80); Red Cell Distribution Width 12.2 % (11.0-16.0); White Blood Count 5.2 X10*3/uL (4.8-10.8)
[2022-01-16 09:41] LABS: Anion Gap 7 (12-20); Blood Urea Nitrogen 14 mg/dL (9-16); Calcium 8.7 mg/dL (8.4-10.2); Carbon Dioxide 29 mmol/L (22-29); Chloride 103 mmol/L (96-108); Creatinine Clr Calc Pharmacy 63.9; Estimated Glomerular Filt Rate 59; Glucose Random 113 mg/dL (60-115); Potassium 4.4 mmol/L (3.3-5.1); Sodium 135 mmol/L (135-145)
[2022-01-16 09:46] LABS: COVID-19 Test Negative (Negative); IDNOW Serial# 16C4AD1C; Influenza A Negative (Negative); Influenza B2 Negative (Negative)
--- NOTE | 2022-01-16 09:49 | ED.GENADULT ---
HPI - General Adult General Chief complaint: Upper Respiratory Symptoms <WINNIE Fernandez Last Filed: 01/16/22 14:17> Stated complaint: DIZZY,COUGH,COLD,CONGESTION X'S DAYS <WINNIE Fernandez Last Filed: 01/16/22 14:17> Time Seen by Provider: 01/16/22 09:49 <WINNIE Fernandez Last Filed: 01/16/22 14:17> History of Present Illness HPI narrative: Patient complains of an episode of dizziness this morning which happened about 2 hours ago at 08:00, he got up from bed to urinate and as he was urinating he felt dizziness he described he felt faint like he might pass out, but he did not pass out he had no chest pain no palpitations, he did have diaphoresis and sweating, no nausea, no headache, no weakness no shortness of breath no vomiting He was able to lean against the wall and get back to bed and when he laid back down his symptoms resolved He has a medical history of hypertension and coronary artery disease <WINNIE Fernandez Last Filed: 01/16/22 14:17> Related Data Home medications: Home Medications Medication Instructions Recorded Confirmed aspirin 81 mg tablet,delayed 81 mg PO DAILY 01/25/21 01/30/22 release (Adult Low Dose Aspirin) atorvastatin 80 mg tablet 40 mg PO BEDTIME 01/25/21 01/30/22 cholecalciferol (vitamin D3) 25 25 mcg PO DAILY 01/25/21 01/30/22 mcg (1,000 unit) capsule Previous Rx's Medication Instructions Recorded metoprolol succinate 50 mg 50 mg PO DAILY #90 tabs 01/18/22 tablet,extended release 24 hr (Toprol XL) amlodipine 2.5 mg tablet (Norvasc) 2.5 mg PO QPM 90 days #90 tabs 01/30/22 <WINNIE Fernandez Last Filed: 01/16/22 14:17> Allergies/adverse reactions: Allergies Allergy/AdvReac Type Severity Reaction Status Date / Time shellfish derived Allergy Intermediate HIVES Verified 01/30/22 08:39 [SHELLFISH DERIVED] shellfish Allergy Severe Hives Uncoded 01/30/22 08:39 <WINNIE Fernandez Last Filed: 01/16/22 14:17> Review of Systems ENT: Denies dizziness <Will Trinh MD - Last Filed: 02/03/22 07:01> Neurologic: Reports system reviewed and no additional complaints, except as documented, Denies dizziness and Denies Sensory deficit (Neuro) <Will Trinh MD - Last Filed: 02/03/22 07:01> [facility] Past Medical History Medical History: Medical History Allergic rhinitis Coronary artery disease Erectile dysfunction Hypercholesterolemia Hypertension SVT (supraventricular tachycardia) Vitamin D deficiency <WINNIE Fernandez - Last Filed: 01/16/22 14:17> Surgical History: Surgical History History of hernia repair Hx of CABG <WINNIE Fernandez - Last Filed: 01/16/22 14:17> Family History Family History: Family History Father Diabetes Mother CVD (cardiovascular disease) <WINNIE Fernandez - Last Filed: 01/16/22 14:17> Social History Social History: Social History Alcohol intake: current Alcohol intake frequency: a few times a month Patient Tobacco Use Status: Never used Tobacco Years Smoked: smokes pot <WINNIE Fernandez - Last Filed: 01/16/22 14:17> Physical Exam ED Vital Signs: Vital Signs - 24 hr 01/16/22 08:35 01/16/22 11:05 01/16/22 13:06 Temperature 99 F 99.0 F Pulse Rate 74 72 64 Respiratory Rate 16 16 16 Blood Pressure 130/84 123/75 127/74 Pulse Oximetry 96 98 97 BMI result Body Mass Index 24.1 <WINNIE Fernandez - Last Filed: 01/16/22 14:17> Vital Signs - 24 hr 01/16/22 08:35 01/16/22 11:05 01/16/22 13:06 Temperature 99 F 99.0 F Pulse Rate 74 72 64 Respiratory Rate 16 16 16 Blood Pressure 130/84 123/75 127/74 Pulse Oximetry 96 98 97 BMI result Body Mass Index 24.1 <Will Trinh MD - Last Filed: 02/03/22 07:01> Const General: healthy appearing <Will Trinh MD - Last Filed: 02/03/22 07:01> Nutritional Appearance: average body habitus <MD Adelita Galindo Last Filed: 02/03/22 07:01> Orientation/consciousness: oriented to person and patient oriented x3 <Will Trinh MD - Last Filed: 02/03/22 07:01> Limitations: no limitations <Will Trinh MD - Last Filed: 02/03/22 07:01> HENMT Head: Yes normal to inspection <MD Adeliat Galindo Last Filed: 02/03/22 07:01> Ears: external ears normal <MD Adelita Galindo Last Filed: 02/03/22 07:01> General nose exam: Normal external nose present <MD Adelita Galindo Last Filed: 02/03/22 07:01> Mouth: Normal oral and palatal mucosa present and oropharynx normal <MD Adelita Galindo Last Filed: 02/03/22 07:01> Throat: Yes posterior oropharynx normal <MD Adelita Galindo Last Filed: 02/03/22 07:01> Eyes General: appearance normal, both eyes and all related structures <Will Trinh MD - Last Filed: 02/03/22 07:01> Neck Neck: Yes normal visual inspection <MD Adelita Galindo Last Filed: 02/03/22 07:01> Chest Chest palpation & inspection: normal inspection of the chest <MD Adelita Galindo Last Filed: 02/03/22 07:01> Resp Auscultation: clear to auscultation bilaterally <MD Adelita Galindo Last Filed: 02/03/22 07:01> Cardio Jugular venous distension: no JVD <MD Adelita Galindo Last Filed: 02/03/22 07:01> Rate: regular rate <MD Adelita Galindo Last Filed: 02/03/22 07:01> Rhythm: regular rhythm <MD Adelita Galindo Last Filed: 02/03/22 07:01> Heart sounds: S1 normal heart sound present and S2 normal heart sound present <Will Trinh MD - Last Filed: 02/03/22 07:01> GI Inspection: Yes normal to inspection <Will Trinh MD - Last Filed: 02/03/22 07:01> Palpation (GI): Soft to palpation, nontender and No hepatosplenomegaly present <Will Trinh MD - Last Filed: 02/03/22 07:01> Auscultation: normal bowel sounds <Will Trinh MD - Last Filed: 02/03/22 07:01> General: Yes no CVA tenderness <Will Trinh MD - Last Filed: 02/03/22 07:01> Back/Spine/Pelvis Back: no CVA tenderness <Will Trinh MD - Last Filed: 02/03/22 07:01> Skin General skin exam: no rashes or lesions noted <Will Trinh MD - Last Filed: 02/03/22 07:01> Neuro General: oriented to person and patient oriented x3 <Will Trinh MD - Last Filed: 02/03/22 07:01> Cranial nerves: Yes CN's II-XII intact bilaterally <Will Trinh MD - Last Filed: 02/03/22 07:01> Motor exam (neuro): 5/5 motor strength present throughout <Will Trinh MD - Last Filed: 02/03/22 07:01> Sensory Exam: No Sensory deficit (Neuro) <Will Trinh MD - Last Filed: 02/03/22 07:01> Extrem General: Yes normal to inspection <Will Trinh MD - Last Filed: 02/03/22 07:01> Psych Appearance: grossly normal <Will Trinh MD - Last Filed: 02/03/22 07:01> Course Course Course Narrative: Patient with history of coronary artery disease who stood up this morning and felt dizzy and presyncopal, but did not faint had no chest pain no palpitations no shortness of breath, he did have diaphoresis, symptoms resolved on sitting down, asymptomatic now Two troponins were negative, EKG was normal sinus rhythm, a rate of 70, QT was normal, intervals were normal, no acute ST changes, no acute ischemic changes Chest x-ray was negative and he was noted to have mildly low platelets of 129, but is not bleeding anywhere, other labs did not reveal any acute abnormality Patient has had runny nose and mild cough for several days had a negative COVID test at home and a negative COVID test today, but a close relative has COVID who we saw a week ago and now his son has COVID as well Case was discussed with attending physician sergio who agreed that with 2 troponins negative patient could likely be discharged to follow with his soaping machine back tender I texted soaping machine back tender Dr. petit who agreed patient could be followed on outpatient basis Patient was tested walking and standing with no dizziness and he was discharged <WINNIE Fernandez - Last Filed: 01/16/22 14:17> Reevaluation(s) Reevaluation #1: I have discussed the plan with WINNIE Ahuja and agree <Will Trinh MD - Last Filed: 02/03/22 07:01> Time: 11:19 <Will Trinh MD - Last Filed: 02/03/22 07:01> Medical Decision Making Lab Data Lab results reviewed: Yes I reviewed the patient's lab results. <WINNIE Fernandez - Last Filed: 01/16/22 14:17> Result diagrams: : 01/16/22 09:16 01/16/22 09:16 <WINNIE Fernandez - Last Filed: 01/16/22 14:17> Labs: Lab Results 01/16/22 01/16/22 01/16/22 Range/Units 09:16 09:16 09:16 WBC 5.2 (4.8-10.8) X10*3/uL RBC 4.46 L (4.60-5.80) X10*6/uL Hgb 14.8 (14.0-18.0) g/dl Hct 42.9 (42.0-52.0) % MCV 96.2 (80.0-98.0) fL MCH 33.2 H (27.0-33.0) pg MCHC 34.5 (31.0-36.0) g/dl RDW 12.2 (11.0-16.0) % Plt Count 129 L (160-400) X10*3/uL MPV 10.0 (9.4-12.4) fL Immature Gran % (Auto) 0.0 (0.0-0.4) % Neut % (Auto) 50.9 (45-73) % Lymph % (Auto) 31.4 (20-40) % [place] % (Auto) 14.2 H (2-11) % Eos % (Auto) 2.9 (0-4) % Baso % (Auto) 0.6 (0-2) % Lymph # (Auto) 1.6 (1.2-4.9) X10*3/uL [place] # (Auto) 0.7 (0.1-1.2) X10*3/uL Eos # (Auto) 0.2 (0.0-0.4) X10*3/uL Baso # (Auto) 0.0 (0.0-0.2) X10*3/uL Abs Immat Gran (auto) 0.00 (0.00-0.03) X10*3/uL Absolute Neuts (auto) 2.7 (2.0-8.3) x10*3/uL Absolute Nucleated RBC 0.000 (0.0-0.012) X10*3/uL Nucleated RBC % (auto) 0.0 (0.0-0.2) /100WBC Sodium 135 (135-145) mmol/L Potassium 4.4 (3.3-5.1) mmol/L Chloride 103 (96-108) mmol/L Carbon Dioxide 29 (22-29) mmol/L Anion Gap 7 L (12-20) BUN 14 (9-16) mg/dL Creatinine 1.23 (0.5-1.4) mg/dL Estim Creat Clear Calc 63.9 Estimated GFR 59 Random Glucose 113 (60-115) mg/dL Calcium 8.7 D (8.4-10.2) mg/dL Troponin I High Sens (<3.5-35.0) ng/L COVID-19 ([place]) (Negative) COVID-19 Clin Com Influenza Type A ([place]) Negative (Negative) Influenza Type B ([place]) Negative (Negative) Influenza A & B Note See Note 01/16/22 01/16/22 01/16/22 Range/Units 09:16 10:09 13:09 WBC (4.8-10.8) X10*3/uL RBC (4.60-5.80) X10*6/uL Hgb (14.0-18.0) g/dl Hct (42.0-52.0) % MCV (80.0-98.0) fL MCH (27.0-33.0) pg MCHC (31.0-36.0) g/dl RDW (11.0-16.0) % Plt Count (160-400) X10*3/uL MPV (9.4-12.4) fL Immature Gran % (Auto) (0.0-0.4) % Neut % (Auto) (45-73) % Lymph % (Auto) (20-40) % [place] % (Auto) (2-11) % Eos % (Auto) (0-4) % Baso % (Auto) (0-2) % Lymph # (Auto) (1.2-4.9) X10*3/uL [place] # (Auto) (0.1-1.2) X10*3/uL Eos # (Auto) (0.0-0.4) X10*3/uL Baso # (Auto) (0.0-0.2) X10*3/uL Abs Immat Gran (auto) (0.00-0.03) X10*3/uL Absolute Neuts (auto) (2.0-8.3) x10*3/uL Absolute Nucleated RBC (0.0-0.012) X10*3/uL Nucleated RBC % (auto) (0.0-0.2) /100WBC Sodium (135-145) mmol/L Potassium (3.3-5.1) mmol/L Chloride (96-108) mmol/L Carbon Dioxide (22-29) mmol/L Anion Gap (12-20) BUN (9-16) mg/dL Creatinine (0.5-1.4) mg/dL Estim Creat Clear Calc Estimated GFR Random Glucose (60-115) mg/dL Calcium (8.4-10.2) mg/dL Troponin I High Sens < 3.5 < 3.5 (<3.5-35.0) ng/L COVID-19 ([place]) Negative (Negative) COVID-19 Clin Com See Note Influenza Type A ([place]) (Negative) Influenza Type B ([place]) (Negative) Influenza A & B Note <WINNIE Fernandez - Last Filed: 01/16/22 14:17> Lab Results 01/16/22 01/16/22 01/16/22 Range/Units 09:16 09:16 09:16 WBC 5.2 (4.8-10.8) X10*3/uL RBC 4.46 L (4.60-5.80) X10*6/uL Hgb 14.8 (14.0-18.0) g/dl Hct 42.9 (42.0-52.0) % MCV 96.2 (80.0-98.0) fL MCH 33.2 H (27.0-33.0) pg MCHC 34.5 (31.0-36.0) g/dl RDW 12.2 (11.0-16.0) % Plt Count 129 L (160-400) X10*3/uL MPV 10.0 (9.4-12.4) fL Immature Gran % (Auto) 0.0 (0.0-0.4) % Neut % (Auto) 50.9 (45-73) % Lymph % (Auto) 31.4 (20-40) % [place] % (Auto) 14.2 H (2-11) % Eos % (Auto) 2.9 (0-4) % Baso % (Auto) 0.6 (0-2) % Lymph # (Auto) 1.6 (1.2-4.9) X10*3/uL [place] # (Auto) 0.7 (0.1-1.2) X10*3/uL Eos # (Auto) 0.2 (0.0-0.4) X10*3/uL Baso # (Auto) 0.0 (0.0-0.2) X10*3/uL Abs Immat Gran (auto) 0.00 (0.00-0.03) X10*3/uL Absolute Neuts (auto) 2.7 (2.0-8.3) x10*3/uL Absolute Nucleated RBC 0.000 (0.0-0.012) X10*3/uL Nucleated RBC % (auto) 0.0 (0.0-0.2) /100WBC Sodium 135 (135-145) mmol/L Potassium 4.4 (3.3-5.1) mmol/L Chloride 103 (96-108) mmol/L Carbon Dioxide 29 (22-29) mmol/L Anion Gap 7 L (12-20) BUN 14 (9-16) mg/dL Creatinine 1.23 (0.5-1.4) mg/dL Estim Creat Clear Calc 63.9 Estimated GFR 59 Random Glucose 113 (60-115) mg/dL Calcium 8.7 D (8.4-10.2) mg/dL Troponin I High Sens (<3.5-35.0) ng/L COVID-19 ([place]) (Negative) COVID-19 Clin Com Influenza Type A ([place]) Negative (Negative) Influenza Type B ([place]) Negative (Negative) Influenza A & B Note See Note 01/16/22 01/16/22 01/16/22 Range/Units 09:16 10:09 13:09 WBC (4.8-10.8) X10*3/uL RBC (4.60-5.80) X10*6/uL Hgb (14.0-18.0) g/dl Hct (42.0-52.0) % MCV (80.0-98.0) fL MCH (27.0-33.0) pg MCHC (31.0-36.0) g/dl RDW (11.0-16.0) % Plt Count (160-400) X10*3/uL MPV (9.4-12.4) fL Immature Gran % (Auto) (0.0-0.4) % Neut % (Auto) (45-73) % Lymph % (Auto) (20-40) % [place] % (Auto) (2-11) % Eos % (Auto) (0-4) % Baso % (Auto) (0-2) % Lymph # (Auto) (1.2-4.9) X10*3/uL [place] # (Auto) (0.1-1.2) X10*3/uL Eos # (Auto) (0.0-0.4) X10*3/uL Baso # (Auto) (0.0-0.2) X10*3/uL Abs Immat Gran (auto) (0.00-0.03) X10*3/uL Absolute Neuts (auto) (2.0-8.3) x10*3/uL Absolute Nucleated RBC (0.0-0.012) X10*3/uL Nucleated RBC % (auto) (0.0-0.2) /100WBC Sodium (135-145) mmol/L Potassium (3.3-5.1) mmol/L Chloride (96-108) mmol/L Carbon Dioxide (22-29) mmol/L Anion Gap (12-20) BUN (9-16) mg/dL Creatinine (0.5-1.4) mg/dL Estim Creat Clear Calc Estimated GFR Random Glucose (60-115) mg/dL Calcium (8.4-10.2) mg/dL Troponin I High Sens < 3.5 < 3.5 (<3.5-35.0) ng/L COVID-19 ([place]) Negative (Negative) COVID-19 Clin Com See Note Influenza Type A ([place]) (Negative) Influenza Type B ([place]) (Negative) Influenza A & B Note <Will Trinh MD - Last Filed: 02/03/22 07:01> Discharge Plan Discharge Clinical Impression: Dizziness, Pre-syncope, Viral illness <WINNIE Fernandez - Last Filed: 01/16/22 14:17> Patient Disposition: Home, Self-Care <WINNIE Fernandez - Last Filed: 01/16/22 14:17> Additional Instructions: Our workup today did not reveal any dangerous cause of your dizzy spell We discussed things with your soaping machine back tender Dr. petit who agreed that he would follow you as an outpatient so call his office tomorrow for close follow-up Return to the ER any time for feeling faint, fainting, palpitations, chest pain, shortness of breath, feeling weak, any symptoms related to exertion, any worse condition or any concerns Chest x-ray was negative, and or COVID test today was negative COVID testing is not always reliable and because to close contacts have COVID in recent days there is still a very good chance that you have COVID so use caution around other people Drink plenty of fluids and when you stand up make sure that you remain seated for 10-20 seconds, then stand up holding on to something and make sure you do not become dizzy and after another 10-20 seconds your okay to start walking <WINNIE Fernandez - Last Filed: 01/16/22 14:17> Prescriptions: No Action metoprolol succinate [Toprol XL] 50 mg tablet extended release 24 hr 50 mg PO DAILY Qty: 90 3RF aspirin [Adult Low Dose Aspirin] 81 mg tablet,delayed release (DR/EC) 81 mg PO DAILY cholecalciferol (vitamin D3) 25 mcg (1,000 unit) capsule 25 mcg PO DAILY atorvastatin 80 mg tablet 40 mg PO BEDTIME amlodipine [Norvasc] 2.5 mg tablet 2.5 mg PO QPM 90 Days Qty: 90 1RF <WINNIE Fernandez - Last Filed: 01/16/22 14:17> Interventions: ED Discharge Assessment Last Done: 01/16/22 14:24 <WINNIE Fernandez - Last Filed: 01/16/22 14:17> Discharge Date/Time: 01/16/22 14:24 <WINNIE Fernandez - Last Filed: 01/16/22 14:17>
[2022-01-16 10:39] LABS: Troponin-I High Sensitivity < 3.5 ng/L (<3.5-35.0)
[2022-01-16 11:05] VITALS: BP 123/75; PULSE 72; RESP 16; O2SAT 98
[2022-01-16 13:06] VITALS: BP 127/74; PULSE 64; RESP 16; TEMP 37.2; O2SAT 97
[2022-01-16 13:36] LABS: Troponin-I High Sensitivity < 3.5 ng/L (<3.5-35.0)
== END 2022-01-16 14:24 | disposition home or self-care (01) ==
PROVIDERS: Physician Assistant Medical; Emergency Provider Emergency Medicine; PCP Internal Medicine
DX: B34.9 Viral infection, unspecified (principal); R42 Dizziness and giddiness; R55 Syncope and collapse; Z20.822 Contact with and (suspected) exposure to COVID-19; I10 Essential (primary) hypertension; E78.5 Hyperlipidemia, unspecified; F12.90 Cannabis use, unspecified, uncomplicated; Z79.02 Long term (current) use of antithrombotics/antiplatelets
CPT/HCPCS: 36415; 71045; 80048; 84484; 85025; 87502; 87635; 93005; 99283; 99284

== ENCOUNTER → 2022-01-30 08:24 | Outpatient (BNVA) | payer MEDICARE, SELFPAY | PROVIDERS: PCP Internal Medicine; Referring Provider Internal Medicine; Visit Provider Internal Medicine Cardiovascular Disease | DX: R42 Dizziness and giddiness (principal); I25.10 Atherosclerotic heart disease of native coronary artery without angina pectoris; I47.1 Supraventricular tachycardia | CPT/HCPCS: 93005; 99212 ==

== ENCOUNTER 2022-02-28 09:32 | Outpatient (REF) | payer MEDICARE, SELFPAY ==
[2022-02-28 09:43] LABS: MANUAL DIFF FLAG NO
[2022-02-28 09:54] LABS: Eosinophils Absolute Auto 0.4 X10*3/uL (0.0-0.4); Hematocrit 43.1 % (42.0-52.0); Hemoglobin 14.4 g/dl (14.0-18.0); Imm Gran Abs Auto 0.01 X10*3/uL (0.00-0.03); Imm Gran Pct Auto 0.2 % (0.0-0.4); Lymphocytes Absolute Auto 2.1 X10*3/uL (1.2-4.9); Lymphocytes Percent Auto 50.6 % (20-40); Mean Corpuscular HGB Conc 33.4 g/dl (31.0-36.0); Mean Corpuscular Hemoglobin 32.1 pg (27.0-33.0); Mean Corpuscular Volume 96.2 fL (80.0-98.0); Mean Platelet Volume 9.4 fL (9.4-12.4); Monocytes Absolute Auto 0.6 X10*3/uL (0.1-1.2); Monocytes Percent Auto 13.4 % (2-11); Neutrophils Absolute Auto 1.1 x10*3/uL (2.0-8.3); Neutrophils Percent Auto 25.8 % (45-73); Platelet Count 159 X10*3/uL (160-400); Red Blood Count 4.48 X10*6/uL (4.60-5.80); White Blood Count 4.1 X10*3/uL (4.8-10.8)
[2022-02-28 10:37] LABS: Alanine Aminotransferase 28 U/L (0-40); Albumin Level 3.9 g/dL (3.5-5.0); Alkaline Phosphatase 96 U/L (39-117); Anion Gap 10 (12-20); Aspartate Amino Transferase 25 U/L (5-37); Bilirubin Total 0.9 mg/dL (0.0-1.0); Blood Urea Nitrogen 13 mg/dL (9-16); Calcium 9.2 mg/dL (8.4-10.2); Carbon Dioxide 28 mmol/L (22-29); Chloride 106 mmol/L (96-108); Cholesterol 132 mg/dL; Estimated Glomerular Filt Rate > 60; Glucose Random 109 mg/dL (60-115); HDL Cholesterol 49 mg/dL; LDL Cholesterol Calculated 73 mg/dl; Potassium 4.1 mmol/L (3.3-5.1); Sodium 140 mmol/L (135-145); Total Protein 6.4 g/dL (6.5-8.0); Triglycerides 50 mg/dL
[2022-02-28 10:42] LABS: Free T4 (Free Thyroxine) 0.97 ng/dL (0.71-1.85); Prostate Specific Antigen Scr 0.57 ng/mL (<0.05-4.0); Thyroid Stimulating Hormone 1.48 uIU/mL (0.32-4.0)
[2022-02-28 11:06] LABS: Folate 7.9 ng/mL (> or = 4.0); Vitamin B12 624 pg/mL (200-900)
== END 2022-02-28 09:33 | disposition home or self-care (01) ==
LOC: HO.LAB 09:32
PROVIDERS: PCP Internal Medicine; Visit Provider Internal Medicine
DX: Z12.5 Encounter for screening for malignant neoplasm of prostate (principal); E78.00 Pure hypercholesterolemia, unspecified
CPT/HCPCS: 36415; 80053; 80061; 82607; 82746; 84153; 84439; 84443; 85025

== ENCOUNTER → 2022-09-06 08:10 | Outpatient (BNVA) | payer MEDICARE, SELFPAY | PROVIDERS: PCP Internal Medicine; Referring Provider Internal Medicine; Visit Provider Internal Medicine Cardiovascular Disease | DX: I25.10 Atherosclerotic heart disease of native coronary artery without angina pectoris (principal); I47.1 Supraventricular tachycardia; Z82.49 Family history of ischemic heart disease and other diseases of the circulatory system | CPT/HCPCS: 99212 ==

== ENCOUNTER → 2022-09-19 12:52 | Outpatient (REF) | payer MEDICARE, SELFPAY ==
--- NOTE | 2022-09-19 12:55 | CA_ITS ---
Transthoracic Echocardiogram Patient (Last, First, Middle): Herbert Cobb, Gender: Male Date of : 1955 Age: 67 Procedure Date: 09/19/2022 Procedure Type: Transthoracic Echocardiogram Location: OP Height: 182.88 cm Weight: 80.74 kg BSA: 2.03 m2 Heart Rate: bpm BP: 116 / 56 mmHg [employer]: Referring MD: Taz Petit MD Symptoms: Z82.49 - Family history of ischemic heart disease and other diseases of ... Study Quality: Good ECG Rhythm: Sinus Conclusions: - The left ventricular systolic function is low normal. The calculated ejection fraction is 53% by biplane method. - No obvious valvular pathology seen on this study. Findings Left Ventricle Normal left ventricular cavity size. There is normal left ventricular wall thickness. The left ventricular systolic function is low normal. The calculated ejection fraction is 53% by biplane method. There is no evidence of regional wall motion abnormalities. Diastolic function is normal for age. Right Ventricle Normal right ventricular cavity size and systolic function. Atria The left atrium is mildly dilated. The right atrium is normal in size. Aortic Valve There is a normal trileaflet aortic valve. There is no aortic valve stenosis. There is no aortic valve regurgitation. Mitral Valve The mitral valve appears normal. There is trace mitral valve regurgitation. There is no mitral valve stenosis. Pulmonic Valve The pulmonic valve is likely normal. Tricuspid Valve Normal tricuspid valve structure. There is trace tricuspid valve regurgitation. There is no evidence of pulmonary hypertension. Great Vessels The asc aorta is normal in size. Venous The inferior vena cava is normal in size and collapses greater than 50% with inspiration. Pericardium/Pleural There is no evidence of pericardial effusion. Prior Study Comparison No significant change compared to prior study dated: 07/15/2021. Recommendations, Care & Conclusions No obvious valvular pathology seen on this study. Measurements 2D Linear Measurements IVSd: 0.89 0.6-0.9/0.6-1.0 cm LVIDd: 4.46 3.9-5.3/4.2-5.9 cm LVIDd Index: 2.20 2.4-3.2/2.2-3.1 cm/m2 LVIDs: 2.43 2.0-3.6 cm LVPWd: 0.93 0.7-1.1 cm Ao Root: 3.70 2.1-3.5 cm LA Diam: 3.90 2.7-3.8/3.0-4.0 cm LAIDs Index: 1.92 1.5-2.3 cm/m2 LV Mass: 164.45 67-162/88-224 g LV Mass Index: 81.01 43-95/49-115 g/m2 LVOT Diam: 2.20 3.0+(-)1.3 cm 2D Systolic Function EF 4C: 53.90 >55% EF 2C: 52.70 >55% EF BiP: 52.50 >55% Mitral Valve MV Pk E: 0.75 MV PK A: 0.48 MV Decel Time: 215.00 E/A: 1.60 E'Lateral: 9.36 E'Medial: 7.40 E/E' Med: 10.20 E/E' Lat: 8.10 PHT: 63.00 MVA PHT: 3.49 Decel Hood: 3.51 Aortic Valve AoV Pk Damian: 1.32 AoV Mn Damian: 0.81 AoV VTI: 0.37 AoV Pk Grad: 7.00 Aov Mn Grad: 3.00 SIERRA Cont.VTI: 2.21 LVOT LVOT Pk Damian: 0.91 LVOT Mn Damian: 0.54 LVOT VTI: 0.21 LVOT Pk Grad: 3.00 LVOT Mn Grad: 2.00 LVOT Diam: 2.20 LVOT Area: 3.80 Diastolic Function MV Pk E: 0.75 MV Pk A: 0.48 E/A: 1.60 E'Medial: 7.40 E/E' Med: 10.20 E' Laterial: 9.36 E/E' Lat: 8.10 Right Ventricle TAPSE (mm): 31.00 TVS' Damian: 12.00 Tricuspid Valve TR Pk Damian: 2.04 TR Pk Grad: 17.00 RA Press: 3.00 RVSP: 20.00 Great Vessels Aorta Ao Root-2D: 3.70 2.0-3.7 cm Ao Asc: 3.50 2.1-3.4 cm Pulmonary Valve PV Pk Damian: 0.66 Peak PV Grad: 2.00 Updated in Other Vendor System with Status of Final Liang Morgan MD electronically signed on 09/21/2022 10:34:23 AM with status of Final
== END ==
LOC: HO.CARD 12:52
PROVIDERS: PCP Internal Medicine; Visit Provider Internal Medicine Cardiovascular Disease
DX: I50.20 Unspecified systolic (congestive) heart failure (principal); Z82.49 Family history of ischemic heart disease and other diseases of the circulatory system
CPT/HCPCS: 93306

== ENCOUNTER 2022-11-16 15:09 | Outpatient (REF) | payer MEDICARE, SELFPAY ==
[2022-11-16 16:24] LABS: Alanine Aminotransferase 35 U/L (0-40); Albumin Level 3.9 g/dL (3.5-5.0); Alkaline Phosphatase 95 U/L (39-117); Anion Gap 11 (12-20); Aspartate Amino Transferase 23 U/L (5-37); Bilirubin Total 1.4 mg/dL (0.0-1.0); Blood Urea Nitrogen 19 mg/dL (9-16); Calcium 9.3 mg/dL (8.4-10.2); Carbon Dioxide 28 mmol/L (22-29); Chloride 103 mmol/L (96-108); Cholesterol 141 mg/dL; Estimated Glomerular Filt Rate 47; Glucose Random 99 mg/dL (60-115); HDL Cholesterol 55 mg/dL; LDL Cholesterol Calculated 70 mg/dl; Lipase 19 U/L (8-78); Potassium 4.9 mmol/L (3.3-5.1); Sodium 137 mmol/L (135-145); Total Protein 6.5 g/dL (6.5-8.0); Triglycerides 83 mg/dL
== END 2022-11-16 15:10 | disposition home or self-care (01) ==
LOC: HO.LAB 15:09
PROVIDERS: Visit Provider Nurse Practitioner Family
DX: R10.12 Left upper quadrant pain (principal); I25.10 Atherosclerotic heart disease of native coronary artery without angina pectoris
CPT/HCPCS: 36415; 80053; 80061; 83690

== ENCOUNTER → 2022-11-22 09:06 | Outpatient (BNVA) | payer MEDICARE, SELFPAY | PROVIDERS: PCP Internal Medicine; Referring Provider Internal Medicine; Visit Provider Internal Medicine Cardiovascular Disease | DX: Z01.30 Encounter for examination of blood pressure without abnormal findings (principal) | CPT/HCPCS: 99211 ==

== ENCOUNTER 2022-11-24 14:21 | Outpatient (REF) | payer MEDICARE, SELFPAY ==
--- NOTE | ~2022-11-24 | US_ITS ---
EXAMINATION: US ABDOMEN COMPLETE CLINICAL INFORMATION: Left upper quadrant pain. COMPARISON: Ultrasound abdomen complete 07/09/2013. TECHNIQUE: Real-time imaging of the abdominal viscera. FINDINGS: PANCREAS: Normal. ABDOMINAL AORTA: The proximal, mid, and distal segments are normal in caliber. INFERIOR VENA CAVA: Visualized portions are normal. LIVER: The liver is normal in size. The liver contour is normal. There is borderline increased liver parenchymal echogenicity. No focal hepatic lesion. There is no intrahepatic biliary duct dilatation seen. GALLBLADDER: Normal. The gallbladder is physiologically distended without evidence of stones, sludge, polyps, wall thickening or pericholecystic fluid. COMMON BILE DUCT: Normal in caliber measuring 0.3 cm in diameter. RIGHT KIDNEY: Benign-appearing 0.7 cm renal cyst, no imaging follow-up recommended. No hydronephrosis or renal calculi. The kidney measures 11.0 cm in maximum dimension. LEFT KIDNEY: Benign-appearing 0.7 cm renal cyst, no imaging follow-up recommended. No hydronephrosis or renal calculi. The kidney measures 11.4 cm in maximum dimension. SPLEEN: Normal. The spleen measures 7.1 cm in maximum dimension. FREE FLUID: None. US/US abdomen complete IMPRESSION: No acute findings to extent symptoms of abdominal pain. Borderline increased hepatic echogenicity, borderline for hepatic steatosis or underlying liver disease. Recommend correlation with LFTs.
== END 2022-11-24 14:22 | disposition home or self-care (01) ==
LOC: HO.US 14:21
PROVIDERS: PCP Internal Medicine; Visit Provider Nurse Practitioner Family
DX: R10.12 Left upper quadrant pain (principal)
CPT/HCPCS: 76700

== ENCOUNTER → 2023-03-15 14:26 | Outpatient (BNVA) | payer MEDICARE, SELFPAY | PROVIDERS: PCP Internal Medicine; Visit Provider Internal Medicine Cardiovascular Disease | DX: I25.10 Atherosclerotic heart disease of native coronary artery without angina pectoris (principal); I47.1 Supraventricular tachycardia; Z79.82 Long term (current) use of aspirin; Z79.899 Other long term (current) drug therapy | CPT/HCPCS: 93005; 99212 ==

== ENCOUNTER 2023-03-15 14:37 | Outpatient (AMB) | payer MEDICARE, SELFPAY ==
[2023-03-15 14:30] VITALS: BP 130/70; PULSE 66; BMI 24.5
--- NOTE | 2023-03-15 14:30 | MHC.OFFVIS ---
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 Since that episode he has not had any more episodes of elevated blood pressure. He is doing well. He has not started taking amlodipine therapy. Blood pressure remains controlled. Denies any anginal symptoms. Denies any prolonged palpitations. His LDL is better controlled on dual therapy. He recently sprained is left knee and currently is not as active as before. Denies any heart failure symptoms. No lightheadedness, syncope. [facility] Medical History Allergic rhinitis Coronary artery disease Erectile dysfunction Hypercholesterolemia Hypertension SVT (supraventricular tachycardia) Vitamin D deficiency Surgical History History of hernia repair Family History Father Diabetes Mother CVD (cardiovascular disease) Social History Alcohol intake: current Alcohol intake frequency: a few times a month Patient Tobacco Use Status: Never used Tobacco Years Smoked: smokes pot Cognitive needs: No Hearing needs: No Vision needs: No Review of Systems ENT Reports dizziness Card Denies chest pain, Denies chest pain at rest, Denies chest pain with activity, Denies rapid heart rate, Denies pedal edema, Denies edema, Denies leg edema, Denies lightheadedness, Denies palpitations, Denies dyspnea, Denies dyspnea on exertion and Denies orthopnea Resp Denies cough, Denies dyspnea and Denies dyspnea on exertion GI Denies hematochezia and Denies change in stool character Musc Denies abnormal gait, Reports limited range of motion, Reports muscle cramps, Denies muscle weakness, Denies numbness, Denies radiating pain into limb, Denies stiffness and Denies tingling Neuro Denies abnormal gait, Reports dizziness, Denies numbness and Denies tingling Endo Denies palpitations Physical Exam Vital Signs: Last Vital Signs Pulse 66 03/15/23 14:30 BP 130/70 03/15/23 14:30 BMI result Body Mass Index 24.5 Const General: cooperative, comfortable, no acute distress, alert, awake and well groomed Nutritional Appearance: thin Orientation/consciousness: patient oriented x3 Limitations: no limitations Neck Neck: Yes trachea midline, Yes supple and Yes no JVD Carotids: no bruits Resp Effort & Inspection: normal respiratory effort Auscultation: clear to auscultation bilaterally Cardio Jugular venous distension: no JVD Palpation: normal PMI Rate: regular rate Rhythm: regular rhythm Heart sounds: S1 normal heart sound present and S2 normal heart sound present GI Auscultation: normal bowel sounds Skin General skin exam: no rashes or lesions noted Neuro General: patient oriented x3 and no focal motor deficits Extrem General: Yes no clubbing, cyanosis or edema Psych Appearance: grossly normal Office Procedures EKG Details: EKG shows normal sinus rhythm with left axis deviation 66 beats per minute [id number]-[id number], Complete Assessment & Plan Assessment & Plan (1) Coronary artery disease: Comment: Catheterization done [address] Petit. 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 70% lesion in the mid LAD. Manage medically with no symptoms of angina at high workload Code(s): I25.10 - Atherosclerotic heart disease of [place] coronary artery without angina pectoris Qualifiers: Coronary Disease-Associated Artery/Lesion type: [place] artery [place] vs. transplanted heart: [place] heart Associated angina: without angina Qualified Code(s): I25.10 - Atherosclerotic heart disease of [place] coronary artery without angina pectoris Plan: CAD with chronic total occlusion of RCA and moderately severe stenosis of the LAD without symptoms angina current medical therapy. Continue low-dose aspirin therapy for life. Blood pressure is currently well optimized. No need for additional amlodipine therapy. Continue metoprolol therapy. LDL is better optimized on atorvastatin. Continue maintain activity level as tolerated. (2) SVT (supraventricular tachycardia): Code(s): I47.1 - Supraventricular tachycardia Plan: SVT which is currently suppressed on metoprolol therapy. Continue the same. Vagal maneuvers were discussed advised to call me with worsening symptoms. No need for invasive interventions with ablation at this point in time. Avoidance of stimulants was discussed. Follow up in the clinic in 1 year's time, sooner p.r.n.. Thank you for allowing me to partake in his care Coding Level of Care Code Est Pt Level 4 (19309) Diagnoses Coronary artery disease I25.10 Coronary Disease-Associated Artery/Lesion type: [place] artery [place] vs. transplanted heart: [place] heart Associated angina: without angina SVT (supraventricular tachycardia) I47.1 CPT Codes EKG - CPT: 97820-[id number], Complete ([id number])
== END 2023-03-15 14:50 | disposition home or self-care (01) ==
PROVIDERS: PCP Internal Medicine; Visit Provider Internal Medicine Cardiovascular Disease
DX: I25.10 Atherosclerotic heart disease of native coronary artery without angina pectoris (principal); I47.1 Supraventricular tachycardia
CPT/HCPCS: 93010; 99214

== ENCOUNTER 2023-03-16 10:03 | Outpatient (REF) | payer MEDICARE, SELFPAY ==
[2023-03-16 10:40] LABS: Hematocrit 44.6 % (42.0-52.0); Hemoglobin 15.1 g/dl (14.0-18.0); Mean Corpuscular HGB Conc 33.9 g/dl (31.0-36.0); Mean Corpuscular Hemoglobin 32.5 pg (27.0-33.0); Mean Corpuscular Volume 95.9 fL (80.0-98.0); Mean Platelet Volume 9.9 fL (9.4-12.4); Platelet Count 160 X10*3/uL (160-400); Red Blood Count 4.65 X10*6/uL (4.60-5.80); Red Cell Distribution Width 11.9 % (11.0-16.0); White Blood Count 4.3 X10*3/uL (4.8-10.8)
[2023-03-16 11:31] LABS: Hepatitis A Antibody IgM 0.38 Index (0-0.79); ~Hepatitis A Antibody IgM Nonreactive (Nonreactive)
[2023-03-16 11:50] LABS: HBsAGNum1 0.45 S/CO (0.00-0.99); Hepatitis B Core Antibody Nonreactive (Nonreactive); Hepatitis B Surface Antigen Negative (Negative); ~HepC Num1 0.09 S/CO (0.00-0.79); ~Hepatitis B Surface Antibody NONREACTIVE (Nonreactive); ~Hepatitis C Antibody Nonreactive (Nonreactive)
== END 2023-03-16 10:04 | disposition home or self-care (01) ==
LOC: HO.LAB 10:03
PROVIDERS: PCP Internal Medicine; Visit Provider Nurse Practitioner Family
DX: R10.11 Right upper quadrant pain (principal); R10.12 Left upper quadrant pain
CPT/HCPCS: 36415; 85027; 86704; 86706; 86709; 86803; 87340

== ENCOUNTER 2023-03-19 10:04 | Outpatient (AMB) | payer MEDICARE, SELFPAY ==
[2023-03-19 10:21] VITALS: BP 126/80; PULSE 69; O2SAT 98; BMI 24.5
--- NOTE | 2023-03-19 10:21 | AM.OFFVISMDC ---
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 Patient last seen in October. Patient presents today for subsequent annual well visit. Colonoscopy completed 05/31/2018 showed tubular adenoma recommended 5 year follow-up. Patient states he will call to follow-up with Dr. Ga office. Eye exam: Few weeks ago Patient up-to-date on recommended immunizations Patient does report ongoing left knee pain for which he will be starting physical therapy the beginning of March. Patient states used diclofenac gel with good effect requesting prescription for this, prescription sent to the patient's pharmacy. Patient also requesting left knee x-ray, knee x-ray ordered. [place] of care was reviewed with patient was provided with a rate and screening schedule. Cath care proxy MOLST forms provided to patient [facility] Medical History Allergic rhinitis Coronary artery disease Erectile dysfunction Hypercholesterolemia Hypertension SVT (supraventricular tachycardia) Vitamin D deficiency Surgical History History of hernia repair Family History Father Diabetes Mother CVD (cardiovascular disease) Social History Alcohol intake: current Alcohol intake frequency: a few times a month Patient Tobacco Use Status: Never used Tobacco Years Smoked: smokes pot Cognitive needs: No Hearing needs: No Vision needs: No Questionnaire Activity of Daily Living Bathing - sponge bath, tub bath or shower: receives no assistance (gets in/out by self, if usual bathing means Dressing - getting clothes from closets & drawers, including inner/outer garments & fasteners.: gets clothes & gets completely dressed without help Toileting - going to the 'toilet room' for urine/bowel elimination & cleaning self/arranging clothes: goes to toilet room, cleans self, arranges clothes without help Transfer: moves in & out of bed and chair without help (may use support object) Continence: controls urination/bowel movements completely by self Feeding: feeds self without help Total Score: 0 Information obtained from: patient Using telephone: independent Traveling: independent Shopping: independent Preparing meals: independent Housework: independent Taking medicine: independent Managing money: independent Thrive Questionnaire Date Thrive assessed: 03/19/23 I am a: Patient What is your living situation today?: I have a steady place to live Within the past 12 months, did the food you bought not last and you didn't have the money to get more?: Never true Within the past 12 months, did you worry whether your food would run out before you got money to buy more?: Never true Do you have trouble paying for medicines?: No Do you have trouble getting transportation to medical appointments?: No Do you have trouble paying your heating and electricity bill?: No Do you have trouble taking care of your child, family member or friend?: No Do you have trouble with day-to-day activities such as bathing, preparing meals, shopping, managing finances, etc.?: No Are you currently unemployed and looking for a job?: No Are you interested in more education?: No Please select the resources that you would like help with: None Currently or been in a relationship where the following occur: no concerns reported EV-7 AMB Questionnaire EV-7 Date EV - 7 assessed: 11/16/22 Feeling nervous, anxious, or on edge: 0 = Not at all Not being able to stop or control worryin = Not at all Worrying too much about different things: 0 = Not at all Trouble relaxin = Not at all Being so restless that it is hard to sit still: 0 = Not at all Becoming easily annoyed or irritable: 0 = Not at all Feeling afraid as if something awful might happen: 0 = Not at all Total EV-7 score (0-4 normal; 5-9 mild; 10-14 moderate; 15-21 severe): 0 Source: Developed by Drs. Chandrakant Sol, Melida Richardson, Demetrius Valladares and colleagues, with an educational nicolle from [employer]. Physical Exam Vital Signs: Last Vital Signs Pulse 69 03/19/23 10:21 BP 126/80 03/19/23 10:21 Pulse Ox 98 03/19/23 10:21 Oxygen Delivery Method Room Air 03/19/23 10:21 BMI result Body Mass Index 24.5 Const General: cooperative and no acute distress Orientation/consciousness: patient oriented x3 HEENT Ears: other (whisper test: pass) Neuro General: patient oriented x3 Gait exam (Neuro): Normal gait present Coordination: tandem gait normal and Romberg test negative Assessment & Plan Assessment & Plan (1) Left knee pain: Code(s): M25.562 - Pain in left knee Plan: Left knee x-ray ordered and diclofenac gel prescribed. Keep upcoming appointment with orthopedic. (2) Hypercholesterolemia: Code(s): E78.00 - Pure hypercholesterolemia, unspecified Plan: Continue on atorvastatin 40 mg at bedtime. Avoid fried foods, chicken skin, eggs, butter,margarine, pastries and? red meat. (3) Hypertension: Code(s): I10 - Essential (primary) hypertension Qualifiers: Hypertension type: primary hypertension Qualified Code(s): I10 - Essential (primary) hypertension Plan: Continue metoprolol 50 mg daily. Follow low-salt diet and exercise. Blood pressure goal less than 140/90 (4) Medicare annual wellness visit, subsequent: Code(s): Z00.00 - Encounter for general adult medical examination without abnormal findings Plan: Follow-up in 1 year. Orders: Orders XR knee LT 2V Today M25.562 - Pain in left knee PSA,Total (Free>4and<10) Today Z12.5 - Encounter for screening for malignant neoplasm of prostate Lipid Panel Today Z13.220 - Encounter for screening for lipoid disorders Comprehensive [place]. Panel Fast Today I10 - Essential (primary) hypertension Medications: New diclofenac sodium 1% (Arthritis Pain (diclofenac)) apply to single elbow, wrist or hand; for hand includes palm/fingers/back of hand 2 grams topical QID 100 grams 0RF M25.562 - Pain in left knee Coding Level of Care Code Medicare Subsequent (G0439) Diagnoses Left knee pain M25.562 Hypercholesterolemia E78.00 Hypertension I10 Hypertension type: primary hypertension Medicare annual wellness visit, subsequent Z00.00 CPT Codes Advance Care Planning - Time spent: 1-15 minutes, not on file ([id number]) Advance Care Planning Date of discussion: 03/19/23 Forms completed: Health Care Proxy and MOLST Time spent: 1-15 minutes, not on file Actual minutes spent: 2
== END 2023-03-19 10:52 | disposition home or self-care (01) ==
PROVIDERS: Visit Provider Nurse Practitioner Family
DX: Z00.00 Encounter for general adult medical examination without abnormal findings (principal); M25.562 Pain in left knee; E78.00 Pure hypercholesterolemia, unspecified; I10 Essential (primary) hypertension
CPT/HCPCS: 1124F; G0439

== ENCOUNTER 2023-03-19 10:59 | Outpatient (REF) | payer MEDICARE, SELFPAY ==
--- NOTE | ~2023-03-19 | XR_ITS ---
EXAMINATION: XR KNEE, LEFT CLINICAL INFORMATION: Pain in left knee COMPARISON: None available. TECHNIQUE: AP and lateral upright of the left knee. FINDINGS: Small joint effusion. Mild medial joint space narrowing. Tiny posterior patellar osteophytes. Vascular calcifications. XR/XR knee LT 2V IMPRESSION: Mild degenerative changes. Small joint effusion.
== END 2023-03-19 11:00 | disposition home or self-care (01) ==
LOC: HO.XRAY 10:59
PROVIDERS: PCP Internal Medicine; Visit Provider Nurse Practitioner Family
DX: M25.562 Pain in left knee (principal)
CPT/HCPCS: 73560

== ENCOUNTER 2023-04-10 | Outpatient (REF) | payer MEDICARE, SELFPAY ==
--- NOTE | ~2023-04-10 | XR_ITS ---
EXAMINATION: XR KNEE AP STANDING CLINICAL INFORMATION: Pain. COMPARISON: Radiographs dated 04/10/2023 and 03/19/2023. TECHNIQUE: AP bilateral standing view of the knees was obtained. FINDINGS: No fracture or joint effusion. Alignment is anatomic. Joint spaces are maintained. There are atherosclerotic calcifications. XR/XR knee standing BI IMPRESSION: Normal knees.
== END 2023-04-10 00:01 | disposition home or self-care (01) ==
LOC: CF
PROVIDERS: Visit Provider Physician Assistant
DX: M25.561 Pain in right knee (principal); M25.562 Pain in left knee
CPT/HCPCS: 73565

== ENCOUNTER 2023-04-10 09:28 | Outpatient (AMB) | payer MEDICARE, SELFPAY ==
[2023-04-10 09:53] VITALS: BMI 24.4
--- NOTE | 2023-04-10 09:53 | A.OFFVIS_ITS ---
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 States pain is mainly on his medial aspect of knee. Seen with PCP who Rx'd him P.T. States P.T has helped relief some pain along with diclofenac cream. States pain is only with twisting of knee. Xrays updated in office. 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 He was seen at PCP who referred him to physical therapy which provided him mild relief. He states he has pain in the medial aspect of his left knee which comes only with twisting of his knee. He finds mild relief with diclofenac cream. [facility] Medical History Allergic rhinitis Coronary artery disease Erectile dysfunction Hypercholesterolemia Hypertension SVT (supraventricular tachycardia) Vitamin D deficiency Surgical History History of hernia repair Family History Father Diabetes Mother CVD (cardiovascular disease) Social History (Updated 04/10/23 @ 09:54 by Tracy Saunders 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 Cognitive needs: No Hearing needs: No Vision needs: No Review of Systems Const All systems reviewed & are unremarkable except as noted in HPI and below Physical Exam Vital Signs: BMI result Body Mass Index 24.4 Const General: cooperative, healthy appearing, comfortable, no acute distress, well developed and alert Orientation/consciousness: patient oriented x3 HEENT Head: Yes normal to inspection, Yes normocephalic and Yes atraumatic Eyes General: appearance normal, both eyes and all related structures Resp Effort & Inspection: normal respiratory effort and able to speak in complete sentences Cardio Rate: regular rate Peripheral pulses: Peripheral pulses 2+ throughout GI Palpation (GI): Soft to palpation Skin Lesions: no lesions Rashes: no rashes Neuro General: patient oriented x3 Extrem Other: Left knee: Skin intact, no erythema or joint effusion. Tenderness along the medial joint line. Full ROM with crepitus. Negative Phillip?s. No ligamentous laxity. NVI. Results Reviewed Results Reviewed: Xrays were obtained in the office today and personally reviewed by me of the left knee show mild medial compartment oa Assessment & Plan Assessment & Plan (1) Internal derangement of left knee: Code(s): M23.92 - Unspecified internal derangement of left knee Plan he will continue working with physical therapy. An MRI of the left knee was also ordered to further evaluate the integrity of meniscus. Once the MRI is complete, he will see us back for the results. Orders: Orders XR knee standing BI Today M25.561 - Pain in right knee, M25.562 - Pain in left knee MR knee LT wo con Today M17.12 - Unilateral primary osteoarthritis, left knee, M23.92 - Unspecified internal derangement of left knee Patient Instructions: Scribed for Bárbara Pruett PA-C, by Mark Anthony Cloud phlebotomist medical lab assistant, on 04/10/2023 at 9:30 AM SONDRA. Bárbara Paige PA-C, have personally reviewed and agree with the information entered by the scribe. Coding Level of Care Code New Pt Level 3 (21563) Diagnoses Internal derangement of left knee M23.92
== END 2023-04-10 11:02 | disposition home or self-care (01) ==
PROVIDERS: PCP Internal Medicine; Visit Provider Physician Assistant
DX: M23.92 Unspecified internal derangement of left knee (principal)
CPT/HCPCS: 99203

== ENCOUNTER → 2023-04-10 09:28 | Outpatient (BNVA) | payer MEDICARE, SELFPAY | PROVIDERS: PCP Internal Medicine; Visit Provider Physician Assistant | DX: M23.92 Unspecified internal derangement of left knee (principal) | CPT/HCPCS: 73565; 99202 ==

== ENCOUNTER 2023-04-24 08:00 | Outpatient (RCR) | payer MEDICARE, SELFPAY ==
--- NOTE | 2023-04-06 07:56 | MHC.PT.EP ---
[facility] [place] Office [place] Office [place] Office [address] [place] [address] [phone] F: [phone] F: [phone] F: [phone] F: [phone] Physical Therapy Plan of Care Date of Evaluation: Date of Surgery: N/A Diagnosis: Pain in left knee Assessment: Pt is a pleasant and motivated 67yo M who presents to PT with L knee pain for ~1 month. He presents to PT with current impairments in pain, decreased ROM, decreased quad strength, decreased hip/glute strength and impaired mechanics. He is limited functionally by pivoting, twisting, biking, bending, and squatting. He is an excellent candidate for skilled PT in order to address current impairments to facilitate return to pain-free PLOF. He is recommended to be seen 1x/week for 5 weeks and will be reassessed at that time. Frequency and Duration: The patient will be seen 1x/week for 5 weeks Short Term Goals: Pt will be I with HEP to promote self management of symptoms Pt will improve B hip ABD strength by 1/2 grade Alf Goals: Pt will achieve full ROM and strength all planes of L knee Pt will return to gym program with proper mechanics with minimal to no discomfort Pt will demonstrate improvements in function as evidenced by statistically significant improvement in LEFI outcome measure Treatment Plan: Modalities to reduce pain, spasms and effusion. Manual therapy to restore motion and function. Therapeutic exercise to improve strength and flexibility. Neuromuscular re-education for posture and balance. Therapeutic activities to return to functional activities of daily living. Electronically signed by: Payton Gonzalez, PT, DPT Please sign and return to therapist. Thank you for your referral.
--- NOTE | 2023-05-21 10:38 | MHC.PT.DC ---
[facility] [place] Office [place] Office [place] Office [address] [place] [address] [phone] F: [phone] F: [phone] F: [phone] F: [phone] Physical Therapy Discharge Report Diagnosis: Pain in left knee Date of Surgery: N/A Date of Evaluation: 04/04/23 Date of Discharge: 05/21/23 Treatments to Date: 3 Cancellations to Date: 0 No Shows to Date: 1 Discharge Status: Improved Function Independent with HEP Discharge Summary: Pt was seen for PT from 04/04/23-04/24/23. His last attended appointment was 04/24/23. He made good progress and had a decrease in left knee pain. He has increased activity and is I with HEP and demonstrated ability to perform with good mechanics. Pt has been D/C to HEP. He was provided with printed, updated copy of HEP and YTB at last attended session. Electronically signed by: Payton Gonzalez, PT, DPT Please sign and return to therapist. Thank you for your referral.
== END 2023-05-21 10:38 | disposition home or self-care (01) ==
LOC: HO.PT 08:00
PROVIDERS: PCP Internal Medicine; Visit Provider Internal Medicine
DX: M25.562 Pain in left knee (principal)
CPT/HCPCS: 97110; 97161

== ENCOUNTER 2023-07-09 09:28 | Outpatient (REF) | payer MEDICARE, SELFPAY ==
--- NOTE | ~2023-07-09 | MR_ITS ---
EXAMINATION: MR KNEE WITHOUT CONTRAST, LEFT CLINICAL INFORMATION: Primary osteoarthritis. Left knee pain. COMPARISON: X-rays of the knees March 2023 and left knee February 2023. TECHNIQUE: MRI of the knee without contrast was performed using routine sequences on a high-field scanner. FINDINGS: MENISCI: Medial Meniscus: There is irregular abnormal signal throughout the posterior horn extending to the femoral and tibial articular surfaces. There is also marked attenuation of the posterior body of the meniscus. Findings indicative of tearing of the posterior horn and body. There is a 3 mm meniscal cyst abutting the periphery of the medial aspect of the posterior horn likely related to the tear. Lateral Meniscus: Possible focal area of surface irregularity along the tibial articular surface of the body the meniscus suspicious but not definitive for small tear. LIGAMENTS: Cruciate: Intact. Collateral: Intact. EXTENSOR MECHANISM: Intact. ARTICULAR CARTILAGE/BONE: Patellofemoral Compartment: There is partial-thickness cartilage loss at the junction of the medial facet and median ridge of the patella. There is some minimal cartilage heterogeneity and subchondral edema along the more medial aspect of the medial facet. Lateral facet is normal. There is high-grade cartilage loss throughout the central sulcus over an area measuring approximately 2.8 cm transverse and 2 cm craniocaudal. Additional scattered areas of cartilage heterogeneity and subchondral cystic change in the medial and lateral trochlea. Findings overall indicative of moderate osteoarthritis. Medial Compartment: There are marginal osteophytes. There is scattered cartilage heterogeneity and small subchondral cystic change in the weightbearing portion of the compartment. There is additional subchondral cystic change and nonuniform cartilage loss and heterogeneity in the posterior weightbearing femoral articular surface. Overall findings indicative of mild arthrosis. Lateral Compartment: Small marginal osteophytes. Minimal cartilage heterogeneity along the medial aspect of the tibial articular surface. Overall minimal arthrosis. JOINT FLUID AND BURSAE: There is a small Baeza's cyst. MR/MR knee LT wo con IMPRESSION: 1. Tear of the posterior horn and body of the medial meniscus. 2. Possible small tear of the body of the lateral meniscus. 3. Tricompartmental osteoarthritis with degenerative changes most prominent in the patellofemoral compartment being moderate. 4. Small Baeza's cyst.
== END 2023-07-09 09:29 | disposition home or self-care (01) ==
LOC: HO.MRI 09:28
PROVIDERS: PCP Internal Medicine; Visit Provider Physician Assistant
DX: M17.12 Unilateral primary osteoarthritis, left knee (principal); M23.92 Unspecified internal derangement of left knee
CPT/HCPCS: 73721

== ENCOUNTER → 2024-01-31 09:25 | Outpatient (BNVA) | payer MEDICARE, SELFPAY | PROVIDERS: PCP Internal Medicine; Visit Provider Internal Medicine Cardiovascular Disease ==

== ENCOUNTER 2024-02-05 06:29 | Day surgery (SDC) | payer MEDICARE, SELFPAY ==
[2024-01-31 14:51] VITALS: BMI 24.4
[2024-01-31 15:11] VITALS: BMI 24.4
--- NOTE | 2024-02-04 09:18 | HO.ANESPROP2 ---
Documented by User: Odalys Olmos NP 02/04/24 09:23 HPI - Anesthesia Eval Consult details Narrative: 68yo M for Colonoscopy Follows [facility] for CAD (medically mangaged with no symptoms of angina at high workload) and SVT (suppressed on metoprolol). Last visit 02/2023 with routine 1 year f/u. [facility] Active Problems Active Problems: All Active Problems Internal derangement of left knee (Acute) Left knee pain (Acute) RUQ discomfort (Acute) LUQ discomfort (Acute) Perianal pruritus (Acute) Medicare annual wellness visit, subsequent (Acute) Orthostatic lightheadedness (Acute) Upper respiratory tract infection (Acute) Medicare annual wellness visit, initial (Acute) Family history of thoracic aortic aneurysm (Acute) SVT (supraventricular tachycardia) (Acute) Hypercholesterolemia (Acute) Coronary artery disease (Acute) Hypertension (Acute) Past Medical History Medical History (Updated 04/10/23 @ 10:17 by Bárbara Pruett PA-C) SVT (supraventricular tachycardia) Allergic rhinitis Vitamin D deficiency Hypercholesterolemia Coronary artery disease Hypertension Erectile dysfunction Family History Family History Father Diabetes Mother CVD (cardiovascular disease) Surgical History Surgical History (Updated 01/31/24 @ 14:45 by Reyna Cheatham RN) Hx of repair of right rotator cuff (01/2017) Hx of colonoscopy (2018) History of hernia repair Social History Social History (Updated 04/10/23 @ 09:54 by PARIS Landers) Are you a primary neonatal intensive care nurse to a significant other at home: No Do you presently have visiting nurse or other home services: No Alcohol intake: current Alcohol intake frequency: a few times a month Patient Tobacco Use Status: Never used Tobacco Years Smoked: smokes pot Use of substances other than those prescribed or required for medical reasons: No Have you been hit, kicked, punched, or otherwise hurt by someone within the past year? 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 Cognitive needs: No Hearing needs: No Vision needs: No Meds Allergies Allergy/AdvReac Type Severity Reaction Status Date / Time shellfish derived Allergy Severe HIVES, Verified 01/31/24 15:13 [SHELLFISH DERIVED] itching shellfish Allergy Severe Hives, Uncoded 01/31/24 15:13 itching Home Medications ?Medication ?Instructions ?Recorded ?Confirmed ?Last Taken ?Type aspirin 81 mg tablet,delayed 81 mg PO DAILY 01/25/21 01/31/24 01/28/24 History release (Adult Low Dose Aspirin) atorvastatin 80 mg tablet 40 mg PO BEDTIME 01/25/21 01/31/24 Unknown History cholecalciferol (vitamin D3) 25 50 mcg PO DAILY 01/25/21 01/31/24 Unknown History mcg (1,000 unit) capsule Exam Height,Weight and Vital Signs: Height 6 ft Weight 81.647 kg Narrative Narrative: EKG 01/2024 NSR LAD No change from prev ECHO 08/2022 Conclusions: - The left ventricular systolic function is low normal. The calculated ejection fraction is 53% by biplane method. - No obvious valvular pathology seen on this study. Assessment and Plan Assessment Anesthesia Assessment: Chart Reviewed Documented by User: Alysa Zhao MD 02/05/24 07:20 [facility] Past Medical History Medical History (Updated 04/10/23 @ 10:17 by Bárbara Pruett PA-C) SVT (supraventricular tachycardia) Allergic rhinitis Vitamin D deficiency Hypercholesterolemia Coronary artery disease Hypertension Erectile dysfunction Family History Family History Father Diabetes Mother CVD (cardiovascular disease) Family history of problems with anesthesia: No Surgical History Surgical History (Updated 01/31/24 @ 14:45 by eRyna Cheatham, PADMINI) Hx of repair of right rotator cuff (01/2017) Hx of colonoscopy (2017) History of hernia repair History of Problems with Anesthesia: No Social History Social History (Updated 04/10/23 @ 09:54 by PARIS Landers) Are you a primary neonatal intensive care nurse to a significant other at home: No Do you presently have visiting nurse or other home services: No Alcohol intake: current Alcohol intake frequency: a few times a month Patient Tobacco Use Status: Never used Tobacco Years Smoked: smokes pot Use of substances other than those prescribed or required for medical reasons: No Have you been hit, kicked, punched, or otherwise hurt by someone within the past year? 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 Cognitive needs: No Hearing needs: No Vision needs: No Meds Allergies Allergy/AdvReac Type Severity Reaction Status Date / Time shellfish derived Allergy Severe HIVES, Verified 01/31/24 15:13 [SHELLFISH DERIVED] itching shellfish Allergy Severe Hives, Uncoded 01/31/24 15:13 itching Home Medications ?Medication ?Instructions ?Recorded ?Confirmed ?Last Taken ?Type aspirin 81 mg tablet,delayed 81 mg PO DAILY 01/25/21 01/31/24 01/28/24 History release (Adult Low Dose Aspirin) atorvastatin 80 mg tablet 40 mg PO BEDTIME 01/25/21 01/31/24 Unknown History cholecalciferol (vitamin D3) 25 50 mcg PO DAILY 01/25/21 01/31/24 Unknown History mcg (1,000 unit) capsule Exam Airway Mallampati Class: II TM Dist: >3cm Neck ROM: Full Assessment and Plan Assessment Anesthesia Assessment: Anesthesia Plan Discussed Final Anesthetic Review Family History of Problems with Anesthesia: No History of Problems with Anesthesia: No NPO: Yes ASA Class: III Final Preanesthetic Review: No Changes in Pt Med Stat, Meds/Allgs Chart Reviewed, Consent Obtained/Reviewed and Anes Risks/Benef Reviewed Patient Risk: Intermediate Procedure Risk: Low Anesthetic Plan Anesthetic Plan: TIVA Disposition: Standard PACU
[2024-02-05 06:33] VITALS: BP 140/91; PULSE 87; RESP 20; TEMP 36.1; O2SAT 98; BMI 24.6
[2024-02-05] MEDS: Lactated Ringers 1,000 ML 100 ML IVCONT (07:24)
--- NOTE | 2024-02-05 07:24 | MHC.SHP ---
Pre-Procedural Eval Section A - 24 Hr Update-Section A only Date of Service: 02/05/24 Section B - Complete if H&P > 30 days Chief Complaint: Encounter for screening for malignant neoplasm of Details of Present Illness: see H&P no changes Relevant Family History (Specify if Yes): No Relevant Social History: None Present Medications: see Short Stay Collaborative assessment Medical History: No relevant PMH History of Previous Operations: No relevant previous surgery Allergies: Allergies Allergy/AdvReac Type Severity Reaction Status Date / Time shellfish derived Allergy Severe HIVES, Verified 01/31/24 15:13 [SHELLFISH DERIVED] itching shellfish Allergy Severe Hives, Uncoded 01/31/24 15:13 itching Review of Systems Sugical H&P ROS: Negative: Constitution, Cardiovascular, Respiratory, Neurological, Psychiatric, Hem-Onc, Allergic/Immunologic, Gastrointestinal, Genitourinary, Musculoskeletal, Integumentary, Endocrine and Eyes/Ears/Nose/Throat Exam Surgical H&P Exam: Normal: HEENT, Normal: Heart, Normal: Lungs, Normal: Extremities, Normal: Abdomen, Normal: Skin and Normal: Neurological Plan Diagnosis/Plan: Unchanged I have reviewed the history and physical and performed a pertinent physical examination on my patient. No changes have occurred unless specified. Time Spent With Patient Time: Total time managing care of this patient today ____ minutes.
[2024-02-05 07:56] VITALS: BP 117/74; PULSE 70; RESP 16; TEMP 36.1; O2SAT 98
[2024-02-05 08:10] VITALS: BP 149/94; PULSE 68; RESP 16; TEMP 36.2; O2SAT 99
[2024-02-05 08:24] VITALS: BP 149/90; PULSE 65; RESP 16; TEMP 36.2; O2SAT 99
--- NOTE | 2024-02-05 09:48 | OP_ITS ---
DATE OF SERVICE: 02/05/2024 SURGEON: Deandre Ga MD INDICATIONS: Colon cancer screening and prior history of adenomatous colon polyps. PREOPERATIVE DIAGNOSIS: POSTOPERATIVE DIAGNOSIS: PROCEDURE PERFORMED: Colonoscopy to the terminal ileum. ESTIMATED BLOOD LOSS: COMPLICATIONS: ANESTHESIA: Monitored anesthesia care. ASSISTANTS: SPECIMENS: DESCRIPTION OF PROCEDURE: A history and physical were performed. The risks and benefits of the procedure were explained to the patient. Informed consent was obtained. The patient was placed in the left lateral decubitus position. A digital rectal exam was performed and was found to be normal. The Olympus pediatric video colonoscope was introduced into the rectum and advanced to the cecum. The cecum was identified by transillumination, palpation, and identification of ileocecal valve. Examination was performed and the scope was removed. He tolerated the procedure well and was returned to the recovery room in stable condition. FINDINGS: The terminal ileum was examined and appeared normal. The visualized colonic mucosa was normal. The quality of the prep was good. No polyps were identified. Retroflexed examination showed small internal hemorrhoids. IMPRESSION: Normal colonoscopy. RECOMMENDATION: 1. Follow up as needed. 2. Repeat colonoscopy is recommended in 10 years for average risk individuals. MD LISA Aguilar/GUERITA / [phone]
== END 2024-02-05 08:37 | disposition home or self-care (01) ==
PROVIDERS: PCP Internal Medicine; Visit Provider Internal Medicine Gastroenterology
PROC: 0DJD8ZZ Inspection of Lower Intestinal Tract, Via Natural or Artificial Opening Endoscopic (ICD-10-PCS; CPT 45378; principal; 2024-02-05 07:30)
DX: Z12.11 Encounter for screening for malignant neoplasm of colon (principal); K64.8 Other hemorrhoids; Z86.010 Personal history of colon polyps; I10 Essential (primary) hypertension; I25.10 Atherosclerotic heart disease of native coronary artery without angina pectoris; Z79.82 Long term (current) use of aspirin; Z79.899 Other long term (current) drug therapy
CPT/HCPCS: G0105; J2704

== ENCOUNTER 2024-03-25 07:51 | Outpatient (AMB) | payer MEDICARE, SELFPAY ==
--- NOTE | 2024-03-25 08:00 | MHC.PC.OV ---
Intake Visit Reasons: Rescheduled from 03/21 [facility] G0439 Allergies shellfish derived [SHELLFISH DERIVED] Allergy (Severe, Verified 01/31/24 15:13) HIVES, itching shellfish Allergy (Severe, Uncoded 01/31/24 15:13) Hives, itching Tobacco use date assessed: 11/16/22 [facility] Medical History (Updated 04/10/23 @ 10:17 by Bárbara Pruett PA-C) SVT (supraventricular tachycardia) Allergic rhinitis Vitamin D deficiency Hypercholesterolemia Coronary artery disease Hypertension Erectile dysfunction Surgical History (Updated 01/31/24 @ 14:45 by Reyna Cheatham, PADMINI) Hx of repair of right rotator cuff (01/2017) Hx of colonoscopy (2018) History of hernia repair Family History Father Diabetes Mother CVD (cardiovascular disease) Social History (Updated 04/10/23 @ 09:54 by PARIS Landers) Are you a primary director of career services to a significant other at home: No Do you presently have visiting nurse or other home services: No Alcohol intake: current Alcohol intake frequency: a few times a month Patient Tobacco Use Status: Never used Tobacco Years Smoked: smokes pot Current occupational status: retired 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 Cognitive needs: No Hearing needs: No Vision needs: No Questionnaire Thrive Questionnaire Date Thrive assessed: 03/19/23 EV-7 AMB Questionnaire EV-7 Date EV - 7 assessed: 11/16/22 Source: Developed by Drs. Chandrakant Sol, Melida Richardson, Demetrius Valladares and colleagues, with an educational nicolle from [employer]. Physical exam (Primary Care) Tobacco/Smoking Status: Tobacco use Status Tobacco use date assessed 11/16/22 11/16/22 14:40 Patient Tobacco Use Status Never used Tobacco 02/05/24 07:24 Thrive Assessment: Date of Thrive Assessment Date Thrive assessed 03/19/23 03/19/23 10:28 Coding
[2024-03-25 08:04] VITALS: BP 128/72; PULSE 81; O2SAT 97; BMI 23.7
--- NOTE | 2024-03-25 08:04 | AM.OFFVISMDC ---
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 Allergies shellfish derived [SHELLFISH DERIVED] Allergy (Severe, Verified 03/25/24 08:14) HIVES, itching shellfish Allergy (Severe, Uncoded 03/25/24 08:14) Hives, itching Medication List - Last Reconciled 03/25/24 by Mona Mcintosh PA-C aspirin (Adult Low Dose Aspirin) 81 mg PO DAILY atorvastatin 40 mg PO BEDTIME cholecalciferol (vitamin D3) 50 mcg PO DAILY diclofenac sodium 1% (Arthritis Pain (diclofenac)) 2 grams topical QID metoprolol succinate ER 50 mg PO DAILY HPI Rescheduled from 03/21 [facility] G0439 HPI Details 68-year-old male with past medical history of hypertension, coronary artery disease, hypercholesterolemia, and SVT last seen by nurse practitioner 02/2023 coming in for annual well visit.? In review of the notes, patient had colonoscopy completed 03/18/2024 repeat colonoscopy in 10 years.? Patient was seen by Orthopedics 03/2023 for left knee pain MRI was ordered and patient referred to physical therapy.? MRI showed tear of the posterior horn and body of medial meniscus with small tear of lateral meniscus as well as a small Baeza's cyst.? Patient was scheduled to follow up with Cardiology but missed the appointment. Today he tells us he recently took a trip to [place] and on the flight home was exposed to COVID. He was having upper respiratory symptoms which have resolved at this time. He also mentions he has been having increased stress at home due to marital stress. Otherwise he has no concerns. [facility] Medical History SVT (supraventricular tachycardia) Allergic rhinitis Vitamin D deficiency Hypercholesterolemia Coronary artery disease Hypertension Erectile dysfunction Surgical History Hx of repair of right rotator cuff (01/2017) Hx of colonoscopy (2017) History of hernia repair Family History Father Diabetes Mother CVD (cardiovascular disease) Social History Are you a primary personal care aid to a significant other at home: No Do you presently have visiting nurse or other home services: No Alcohol intake: current Alcohol intake frequency: a few times a month Patient Tobacco Use Status: Never used Tobacco Years Smoked: smokes pot Current occupational status: retired 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 Cognitive needs: No Hearing needs: No Vision needs: No Questionnaire Medicare Wellness Checkup [age] What gender do you identify with?: male During the past 4 weeks, how much have you been bothered by emotional problems such as feeling anxious, depressed, irritable, sad or downhearted, and blue?: slightly During the past 4 weeks, has your physical & emotional health limited your social activities with family, friends, neighbors, or groups?: slightly During the past 4 weeks, how much bodily pain have you generally had?: very mild pain During the past 4 weeks, was someone available to help you if you needed & wanted help?: no, not at all During the past 4 weeks, what was the hardest physical activity you could do for at least 2 minutes?: heavy Can you get to places out of walking distance without help? (For eg., can you travel alone on buses, taxis or drive your car?): Yes Can you go shopping for groceries or clothes without someone's help?: Yes Can you prepare your own meals?: Yes Can you do your housework without help?: Yes Because of any health problems, do you need the help of another person with your personal care needs such as eating, bathing, dressing or getting around the house?: No Can you handle your own money without help?: Yes During the past 4 weeks, how would you rate your health in general?: good During the past 4 weeks how have things been going for you?: pretty well Are you having difficulties driving your car?: no Do you always fasten your seat belt when you are in a car?: yes, sometimes During past 4 weeks, have you been bothered by the following: never: Sexual problems?, Trouble eating well?, Problems using the telephone? and Tiredness or fatigue? and seldom: Falling or dizzy when standing up and Teeth or denture problems? Have you fallen 2 or more times in the past year?: No Are you afraid of falling?: No Are you a smoker?: no During the past 4 weeks, how many drinks of wine, beer, or other alcoholic beverages did you have?: 1 drink or less per week Do you exercise for about 20 minutes 3 or more times a week?: yes, most of the time Have you been given information to help with the following?: no: Hazards in your house that might hurt you? and no: Keeping track of your medications? How often do you have trouble taking medicines the way you have been told to take them?: I always take medicine as prescribed How confident are you that you can control & manage most of your health problems?: somewhat confident What is your race?: or origin or descent Activity of Daily Living Bathing - sponge bath, tub bath or shower: receives no assistance (gets in/out by self, if usual bathing means Dressing - getting clothes from closets & drawers, including inner/outer garments & fasteners.: gets clothes & gets completely dressed without help Toileting - going to the 'toilet room' for urine/bowel elimination & cleaning self/arranging clothes: goes to toilet room, cleans self, arranges clothes without help Transfer: moves in & out of bed and chair without help (may use support object) Continence: controls urination/bowel movements completely by self Feeding: feeds self without help Total Score: 0 Information obtained from: patient Using telephone: independent Traveling: independent Shopping: independent Preparing meals: independent Housework: independent Taking medicine: independent Managing money: independent PHQ-9 Over the last 2 weeks, how often have you been bothered by any of the following problems? 1. Little interest or pleasure in doing things: not at all 2. Feeling down, depressed, or hopeless: not at all 3. Trouble falling or staying asleep, or sleeping too much: not at all 4. Feeling tired or having little energy: not at all 5. Poor appetite or overeating: not at all 6. Feeling bad about yourself - or that you are a failure or have let yourself or your family down: not at all 7. Trouble concentrating on things, such as reading the newspaper or watching television: not at all 8. Moving or speaking so slowly that other people could have noticed. Or the opposite - being so fidgety or restless that you have been moving around a lot more than usual: not at all 9. Thoughts that you would be better off or of hurting yourself in some way: not at all Total score: 0 Depression Screening Interpretation: Negative Depression Screening Done: Yes 43747 - PHQ-9 Billing: Yes Source: Developed by Drs. Chandrakant Sol, Melida Richardson, Demetrius Valladares and colleagues, with an educational nicolle from [employer]. Review of Systems Const Denies body aches, Denies fatigue, Denies fever(s), Denies frequent falls, Denies headache(s) and Denies weakness Eyes Reports no additional complaints and Denies change in vision ENT Denies dysphagia, Denies dizziness, Denies facial pain, Denies headache(s), Denies nasal congestion and Denies odynophagia Card Denies chest pain, Denies syncope, Denies irregular heart rhythm, Denies leg edema, Denies lightheadedness and Denies dyspnea Resp Denies cough and Denies dyspnea GI Denies constipation, Denies dysphagia, Denies dyspepsia, Denies diarrhea, Denies nausea, Denies odynophagia and Denies vomiting Denies dysuria, Denies urinary frequency, Denies urinary hesitancy and Denies urinary urgency Musc Denies back pain, Denies myalgias and Reports arthralgias (Occasional left knee pain) Skin/Breast Reports system reviewed and no additional complaints, except as documented Neuro Denies dizziness, Denies syncope, Denies frequent falls, Denies headache(s) and Denies weakness Psych Reports no additional complaints Endo Denies fatigue Physical Exam Vital Signs: Last Vital Signs Pulse 81 03/25/24 08:04 BP 128/72 03/25/24 08:04 Pulse Ox 97 03/25/24 08:04 Oxygen Delivery Method Room Air 03/25/24 08:04 BMI result Body Mass Index 23.7 Const General: cooperative, healthy appearing, comfortable and no acute distress Orientation/consciousness: patient oriented x3 HEENT Head: Yes normocephalic Ears: hearing grossly normal bilaterally, external ears normal, TM's normal bilaterally and EAC's normal General nose exam: Normal external nose present Face and sinus: Yes normal facial exam and Yes sinuses nontender Mouth: Normal oral and palatal mucosa present and tongue normal Throat: Yes posterior oropharynx normal Eyes General: appearance normal, both eyes and all related structures Conjunctivae: conjunctivae normal Pupils: Equal, round and reactive pupils present EOM: EOMs intact bilaterally and No Nystagmus present Neck Neck: Yes normal visual inspection, Yes full ROM and Yes no lymphadenopathy Chest Chest palpation & inspection: normal inspection of the chest Resp Effort & Inspection: normal respiratory effort Auscultation: clear to auscultation bilaterally, no crackles, no rales, no rhonchi, no wheezes and breath sounds present Cardio Rate: regular rate Rhythm: regular rhythm Bruits: no carotid bruits Peripheral pulses: radial pulses present and dorsalis pedis present GI Inspection: Yes normal to inspection and No Abdominal wall edema Palpation (GI): Soft to palpation, not firm and nontender Auscultation: normal bowel sounds Rectal Exam - Male: Yes deferred General: Yes no CVA tenderness Back/Spine/Pelvis Back: no CVA tenderness Skin General skin exam: no rashes or lesions noted Neuro General: patient oriented x3 Cranial nerves: Yes Equal, round and reactive pupils present, Yes Midline tongue present, Yes Ability to bilaterally elevate shoulders present and No Nystagmus present Gait exam (Neuro): Normal gait present Extrem Other: No tenderness to palpation over bilateral knees General: Yes normal to inspection, Yes full ROM, No no pedal edema and No edema Psych Speech and movement: Normal speech and movement present Affect: normal affect Insight: Good insight present (Psych) Judgement: Good judgement present (Psych) Assessment & Plan Assessment & Plan (1) Hypercholesterolemia: Code(s): E78.00 - Pure hypercholesterolemia, unspecified Plan: Continue on atorvastatin 40 mg at bedtime. Avoid foods that are high in cholesterol such as red meat, fried foods, eggs and baked goods. (2) Hypertension: Code(s): I10 - Essential (primary) hypertension Qualifiers: Hypertension type: primary hypertension Qualified Code(s): I10 - Essential (primary) hypertension Plan: Blood pressure at goal today 120/72. Continue metoprolol 50 mg daily. Follow low-salt diet and exercise with blood pressure goal less than 140/90 (3) Medicare annual wellness visit, subsequent: Code(s): Z00.00 - Encounter for general adult medical examination without abnormal findings Plan: Patient is up to date on all recommended screenings and vaccinations for his age. Repeat blood work sent. Follow-up in 1 year. (4) Anxiety: Code(s): F41.9 - Anxiety disorder, unspecified Plan: Patient has been having increased anxiety and stress at home related to marital stress. Previously he had discussed with Dr. Dey about these problems with his present and found this helpful. Referral to counseling sent. (5) SVT (supraventricular tachycardia): Code(s): I47.1 - Supraventricular tachycardia Plan: Not symptomatic at this time. Continue to follow with Cardiology. Plan This note was constructed using voice recognition software. 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 Total time spent caring for the patient today was 35 minutes. This includes time spent before the visit reviewing the chart, time spent during the visit, and time spent after the visit and documentation. Orders: Orders Comprehensive Met. Panel Today Z00.00 - Encounter for general adult medical examination without abnormal findings Free T4 (Free Thyroxine) Today Z00.00 - Encounter for general adult medical examination without abnormal findings Prostate Specific Antigen Scr Today Z00.00 - Encounter for general adult medical examination without abnormal findings Complete Blood Count Auto Diff Today Z00.00 - Encounter for general adult medical examination without abnormal findings Lipid Panel Today Z00.00 - Encounter for general adult medical examination without abnormal findings Thyroid Stimulating Hormone Today Z00.00 - Encounter for general adult medical examination without abnormal findings Referrals Counseling Referral F41.9 - Anxiety disorder, unspecified Quality Reporting (2019) Depression/Bipolar (159/160/161/177) PHQ-9: Total score: 0 Coding Level of Care Code Medicare Subsequent (G0439) Diagnoses Hypercholesterolemia E78.00 Primary hypertension I10 Hypertension type: primary hypertension Medicare annual wellness visit, subsequent Z00.00 Anxiety F41.9 SVT (supraventricular tachycardia) I47.1 CPT Codes Advance Care Planning - Time spent: 1-15 minutes, not on file ([id number]) Advance Care Planning Advance Care Planning discussion: Exists, not on file Date of discussion: 03/25/24 Forms completed: Health Care Proxy and [facility] Time spent: 1-15 minutes, not on file Actual minutes spent: 5 Did not discuss due to Cultural/Spiritual beliefs: No
== END 2024-03-25 08:35 | disposition home or self-care (01) ==
PROVIDERS: PCP Internal Medicine
DX: E78.00 Pure hypercholesterolemia, unspecified (principal); I10 Essential (primary) hypertension; F41.9 Anxiety disorder, unspecified; I47.10 Supraventricular tachycardia, unspecified; Z00.00 Encounter for general adult medical examination without abnormal findings
CPT/HCPCS: 1124F; G0439

== ENCOUNTER 2024-04-09 08:08 | Outpatient (REF) | payer MEDICARE, SELFPAY ==
[2024-04-09 08:19] LABS: MANUAL DIFF FLAG NO
[2024-04-09 08:30] LABS: Basophils Percent Auto 0.9 % (0-2); Eosinophils Absolute Auto 0.5 X10*3/uL (0.0-0.4); Eosinophils Percent Auto 11.6 % (0-4); Hemoglobin 14.5 g/dl (14.0-18.0); Lymphocytes Absolute Auto 2.1 X10*3/uL (1.2-4.9); Lymphocytes Percent Auto 47.5 % (20-40); Mean Corpuscular HGB Conc 34.5 g/dl (31.0-36.0); Mean Corpuscular Hemoglobin 32.8 pg (27.0-33.0); Mean Platelet Volume 9.8 fL (9.4-12.4); Monocytes Absolute Auto 0.6 X10*3/uL (0.1-1.2); Monocytes Percent Auto 12.9 % (2-11); Neutrophils Absolute Auto 1.2 x10*3/uL (2.0-8.3); Neutrophils Percent Auto 27.1 % (45-73); Platelet Count 169 X10*3/uL (160-400); Red Blood Count 4.42 X10*6/uL (4.60-5.80); Red Cell Distribution Width 12.3 % (11.0-16.0); White Blood Count 4.5 X10*3/uL (4.8-10.8)
[2024-04-09 09:15] LABS: Alanine Aminotransferase 28 U/L (0-40); Albumin Level 3.9 g/dL (3.5-5.0); Alkaline Phosphatase 88 U/L (39-117); Anion Gap 7 (12-20); Aspartate Amino Transferase 24 U/L (5-37); Bilirubin Total 0.9 mg/dL (0.0-1.0); Blood Urea Nitrogen 13 mg/dL (9-16); Calcium 9.1 mg/dL (8.4-10.2); Carbon Dioxide 30 mmol/L (22-29); Chloride 106 mmol/L (96-108); Cholesterol 118 mg/dL (<200); Estimated Glomerular Filt Rate > 60; Glucose Random 102 mg/dL (60-115); HDL Cholesterol 46 mg/dL (>40); LDL Cholesterol Calculated 62 mg/dL (<100); Potassium 4.3 mmol/L (3.3-5.1); Sodium 139 mmol/L (135-145); Total Protein 6.6 g/dL (6.5-8.0); Triglycerides 51 mg/dL (<150)
[2024-04-09 09:29] LABS: Free T4 (Free Thyroxine) 1.02 ng/dL (0.71-1.85); Thyroid Stimulating Hormone 1.76 uIU/mL (0.32-4.0)
[2024-04-09 09:30] LABS: Prostate Specific Antigen Scr 1.32 ng/mL (<0.05-4.0)
[2024-04-13 11:44] LABS: Testosterone, Total 593 ng/dL (250-1100)
== END 2024-04-09 08:09 | disposition home or self-care (01) ==
LOC: HO.LAB 08:08
PROVIDERS: PCP Internal Medicine
DX: Z00.00 Encounter for general adult medical examination without abnormal findings (principal); R53.83 Other fatigue; Z12.5 Encounter for screening for malignant neoplasm of prostate
CPT/HCPCS: 36415; 80053; 80061; 84153; 84403; 84439; 84443; 85025

== ENCOUNTER 2024-04-14 10:58 | Outpatient (AMB) | payer MEDICARE, SELFPAY ==
[2024-04-14 11:02] VITALS: BP 140/82; PULSE 68; BMI 23.8
--- NOTE | 2024-04-14 11:02 | A.OFFVIS_ITS ---
Vital Signs 04/14/24 11:02 04/14/24 11:19 Height 6 ft Weight 175 lb 7.807 oz BMI 23.8 BP 140/82 H 110/74 Blood Pressure Location Lt brachial Lt brachial Position Sitting Sitting Pulse 68 Pulse Source Pulse Oximeter Intake Visit Reasons: 1 year follow up Intake Note: 1 yr f/up/ General Repairer Required: No Accompanied by: Self / Same As Patient Allergies shellfish derived [SHELLFISH DERIVED] Allergy (Severe, Verified 03/25/24 08:14) HIVES, itching shellfish Allergy (Severe, Uncoded 03/25/24 08:14) Hives, itching Medication List - Last Reconciled 04/14/24 by Taz Petit MD aspirin (Adult Low Dose Aspirin) 81 mg PO DAILY atorvastatin 40 mg PO BEDTIME cholecalciferol (vitamin D3) 50 mcg PO DAILY diclofenac sodium 1% (Arthritis Pain (diclofenac)) 2 grams topical QID metoprolol succinate ER 50 mg PO DAILY HPI Comments Details: Herbert comes for follow-up. He has been doing well. He said he does cardio every day either swimming or biking or walking and can walk few miles without any symptoms. Denies any exertional chest pain. Denies any prolonged palpitation irregular heartbeat. Takes all his medications. Denies any lightheadedness, syncope. Last LDL at 62 mg/dL. Denies any heart failure symptoms. No syncopal episodes. [facility] Medical History SVT (supraventricular tachycardia) Allergic rhinitis Vitamin D deficiency Hypercholesterolemia Coronary artery disease Hypertension Erectile dysfunction Surgical History Hx of repair of right rotator cuff (01/2017) Hx of colonoscopy (2018) History of hernia repair Family History Father Diabetes Mother CVD (cardiovascular disease) Social History Are you a primary urgent care technician to a significant other at home: No Do you presently have visiting nurse or other home services: No Alcohol intake: current Alcohol intake frequency: a few times a month Patient Tobacco Use Status: Never used Tobacco Years Smoked: smokes pot Current occupational status: retired 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 Cognitive needs: No Hearing needs: No Vision needs: No Review of Systems Const Denies chills, Denies fatigue, Denies fever(s), Denies frequent falls, Denies weakness, Denies weight gain and Denies weight loss ENT Denies dizziness Card Denies chest pain, Denies leg edema, Denies lightheadedness, Denies palpitations, Denies dyspnea and Denies dyspnea on exertion Resp Denies cough, Denies dyspnea and Denies dyspnea on exertion GI Denies hematochezia Musc Denies abnormal gait, Denies muscle weakness, Denies numbness, Denies radiating pain into limb and Denies tingling Neuro Denies abnormal gait, Denies dizziness, Denies frequent falls, Denies numbness, Denies tingling and Denies weakness Endo Denies fatigue and Denies palpitations Physical Exam Vital Signs: Last Vital Signs Pulse 68 04/14/24 11:02 BP 140/82 H 04/14/24 11:02 BMI result Body Mass Index 23.8 Const General: cooperative, comfortable, no acute distress, alert, awake and well groomed Nutritional Appearance: thin Orientation/consciousness: patient oriented x3 Limitations: no limitations Neck Neck: Yes trachea midline, Yes supple and Yes no JVD Carotids: no bruits Resp Effort & Inspection: normal respiratory effort Auscultation: clear to auscultation bilaterally Cardio Jugular venous distension: no JVD Palpation: normal PMI Rate: regular rate Rhythm: regular rhythm Heart sounds: S1 normal heart sound present and S2 normal heart sound present GI Auscultation: normal bowel sounds Skin General skin exam: no rashes or lesions noted Neuro General: patient oriented x3 and no focal motor deficits Extrem General: Yes no clubbing, cyanosis or edema Psych Appearance: grossly normal Assessment & Plan Assessment & Plan (1) Coronary artery disease: Comment: Catheterization done [address] Petit. 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 70% lesion in the mid LAD. Manage medically with no symptoms of angina at high workload Code(s): I25.10 - Atherosclerotic heart disease of [place] coronary artery without angina pectoris Category: Medical Qualifiers: Coronary Disease-Associated Artery/Lesion type: [place] artery [place] vs. transplanted heart: [place] heart Associated angina: without angina Qualified Code(s): I25.10 - Atherosclerotic heart disease of [place] coronary artery without angina pectoris Plan: Stable CAD with chronic total occlusion RCA with collaterals as well as LAD disease, moderately severe without any symptoms of angina at current workload and exercise activity. He said he has no angina. Advised to call me with any exertional symptoms. Continue aggressive medical therapy including aspirin as well as high-intensity statin therapy and metoprolol therapy. Blood pressure is well optimized. No change in treatment at this point time. (2) SVT (supraventricular tachycardia): Code(s): I47.1 - Supraventricular tachycardia Category: Medical Plan: Supraventricular tachycardia which has remained stable. Continue metoprolol therapy. We discussed about management. No other interventions required. Continue to monitor for symptoms. Vagal maneuvers were discussed. Will follow up in the clinic in 1 year's time, sooner p.r.n. after an echocardiogram. Thank you for allowing me to partake in the care Coding Level of Care Code Est Pt Level 4 (48796) Diagnoses Coronary artery disease involving [place] coronary artery of [place] heart without angina pectoris I25.10 Coronary Disease-Associated Artery/Lesion type: [place] artery [place] vs. transplanted heart: [place] heart Associated angina: without angina SVT (supraventricular tachycardia) I47.1
[2024-04-14 11:19] VITALS: BP 110/74
== END 2024-04-14 11:18 | disposition home or self-care (01) ==
PROVIDERS: PCP Internal Medicine; Visit Provider Internal Medicine Cardiovascular Disease
DX: I25.10 Atherosclerotic heart disease of native coronary artery without angina pectoris (principal); I47.10 Supraventricular tachycardia, unspecified
CPT/HCPCS: 99214

== ENCOUNTER → 2024-04-14 10:58 | Outpatient (BNVA) | payer MEDICARE, SELFPAY | PROVIDERS: PCP Internal Medicine; Visit Provider Internal Medicine Cardiovascular Disease | DX: I25.10 Atherosclerotic heart disease of native coronary artery without angina pectoris (principal); I47.10 Supraventricular tachycardia, unspecified | CPT/HCPCS: 99212 ==

== ENCOUNTER 2025-03-26 07:08 | Outpatient (REF) | payer MEDICARE, SELFPAY ==
[2025-03-26 07:25] LABS: MANUAL DIFF FLAG NO
[2025-03-26 07:56] LABS: Hematocrit 43.6 % (42.0-52.0); Hemoglobin 15.1 g/dl (14.0-18.0); Imm Gran Abs Auto 0.01 X10*3/uL (0.00-0.03); Imm Gran Pct Auto 0.2 % (0.0-0.4); Lymphocytes Absolute Auto 2.5 X10*3/uL (1.2-4.9); Mean Corpuscular HGB Conc 34.6 g/dl (31.0-36.0); Mean Corpuscular Hemoglobin 32.8 pg (27.0-33.0); Mean Corpuscular Volume 94.6 fL (80.0-98.0); NRBC Abs Auto 0.000 X10*3/uL (0.0-0.012); NRBC Pct Auto 0.0 /100WBC (0.0-0.2); Platelet Count 163 X10*3/uL (160-400); Red Blood Count 4.61 X10*6/uL (4.60-5.80); White Blood Count 5.1 X10*3/uL (4.8-10.8)
[2025-03-26 08:33] LABS: Alanine Aminotransferase 43 U/L (0-40); Albumin Level 4.1 g/dL (3.5-5.0); Alkaline Phosphatase 104 U/L (39-117); Anion Gap 11 (12-20); Aspartate Amino Transferase 35 U/L (5-37); Blood Urea Nitrogen 16 mg/dL (9-16); Calcium 9.2 mg/dL (8.4-10.2); Carbon Dioxide 29 mmol/L (22-29); Chloride 106 mmol/L (96-108); Cholesterol 135 mg/dL (<200); Estimated Glomerular Filt Rate > 60; HDL Cholesterol 54 mg/dL (>40); Magnesium 2.1 mg/dL (1.6-2.6); Potassium 4.2 mmol/L (3.3-5.1); Sodium 142 mmol/L (135-145); Total Protein 6.7 g/dL (6.5-8.0); Triglycerides 59 mg/dL (<150)
[2025-03-26 08:54] LABS: Free T4 (Free Thyroxine) 0.92 ng/dL (0.71-1.85); Thyroid Stimulating Hormone 2.98 uIU/mL (0.32-4.0)
[2025-03-26 09:02] LABS: Folate 5.5 ng/mL (> or = 4.0); Vitamin B12 587 pg/mL (200-900)
== END 2025-03-26 07:09 | disposition home or self-care (01) ==
LOC: HO.LAB 07:08
PROVIDERS: PCP Internal Medicine; Visit Provider Internal Medicine
DX: Z00.00 Encounter for general adult medical examination without abnormal findings (principal); I25.10 Atherosclerotic heart disease of native coronary artery without angina pectoris; I10 Essential (primary) hypertension; I47.10 Supraventricular tachycardia, unspecified; E78.00 Pure hypercholesterolemia, unspecified; F41.9 Anxiety disorder, unspecified; Z79.82 Long term (current) use of aspirin
CPT/HCPCS: 36415; 80053; 80061; 82607; 82746; 83735; 84153; 84439; 84443; 85025; 96127

== ENCOUNTER 2025-03-26 08:53 | Outpatient (AMB) | payer MEDICARE, SELFPAY ==
--- OUTSIDE RECORDS SUMMARY | 2024-02-05 03:30 | XMS_ITS ---
Author Organization [facility] Address [address] [place] [address] Care Team Providers Care Professor Of Finance Name Role Phone Ziggy Dey MD Primary Care Provider Deandre Gant Jr REASON FOR VISIT screening colon Problems Problem Type SNOMED Code ICD Code Onset Dates Problem Status W/U Status Risk Notes Problem History of polyp of colon (situation) (290096344) Personal history of colonic polyps (Z86.010) Active confirmed Encounters Encounter Location Date Provider Diagnosis [facility] [place] Outpatient [address] [place] [phone] 02/05/2024 Deandre Ga Jr Encounter for screening colonoscopy Z12.11 and Personal history of colonic polyps Z86.010 Assessments Encounter Date Diagnosis (ICD Code) Assessment Notes Treatment Notes Treatment Clinical Notes Section Notes 02/05/2024 Encounter for screening colonoscopy (ICD-10 - Z12.11) 02/05/2024 Personal history of colonic polyps (ICD-10 - Z86.010) Plan Of Treatment No Information Progress Notes * DARIUS MILLSRODOB:1955 (69 yo M)Acc No.[id number]:02/05/2024 COLON WITH MAC Patient: ROXANNE INGRAM Provider: Alyssa Ga MD :1955 A ge:68 Y S ex:Male Date:02/05/2024 Address:[address] [place], [place] [id number] Pcp:Ziggy Dey MD Subjective: * Chief Complaints: * 1 . Screening colon. * Medical History: Objective: * Vitals: Assessment: * Assessment: 1. E ncounter for screening colonoscopy - Z12.11 (Primary) 2 . P ersonal history of colonic polyps - Z86.010 Plan: * Treatment: * Procedure Codes: 4 5378 DIAGNOSTIC COLONOSCOPY, 0529F INTRVL 3+YRS PTS CLNSCP DOCD, 0528F RCMND FLW-UP 10 YRS DOCD * * The named appointment provid er may or may not be the originator of this progress note, and it is not deemed complete until electronically signed by the appointment provider. Sign off status: Pending * Provider: Alyssa Ga MD Date: 0 02/05/2024 Generated for Betzaida piper/Ryan/Lashaitting on: 0 03/26/2025 09:13 AM EDT
--- OUTSIDE RECORDS SUMMARY | 2025-03-26 04:13 | XMS_ITS | Continuity of Care Document ---
Author Name [facility] Organization [facility] Care Team Providers Care Environmental Services Technician Name Role Phone [facility] Unavailable Unavailable Problems Combined list of problems from Department of Defense and Veterans Affairs facilities. It does not include entries that were removed or entered in error. Problem Status Onset Date Problem Type Date of Resolution Comments Source Angina Pectoris Active Condition [facility] Bilateral inguinal hernia, without mention of obstruction or gangrene (ICD-9-CM Active Condition [facility] Colonic polyp Active Condition Aug Entered By: NIKITA HARRIS Comment: vet will have C scope per Dr Eunice Momin 2023 [facility] Coronary artery disease Active Condition [facility] Coronary artery disease (SNOMED CT 78564073) Active Condition January 24, 2011 Entered By: JAZMINE SPANN Comment: -- cardiac cath 01/03 70% LAD, 100% CFX marginal, 40% RCASep 26, 2023 Entered By: NIKITA HARRIS Comment: Inferior hypokinesis consistent with prior IMI// vet sees Dr Avni Momin cardio [facility] Essential hypertension Active Condition [facility] Exposure to Potentially Hazardous Substance (SCT [id number]) Active Condition [facility] History of male erectile disorder Active Condition [facility] Hyperlipidemia (SNOMED CT 57476841) Active Condition [facility] Mixed hyperlipidemia Active Condition [facility] Prediabetes Active Condition [facility] Toenail thickened Active Condition [facility] Vitamin D deficiency Active Condition [facility] Right Inguinal Hernia (ICD-9-CM 550.90) Inactive Condition 05/28/2014 [facility] Diagnosis: ICD-10-CM I25.10 Athscl heart disease of [place] coronary artery w/o ang pctrs Active Diagnosis [facility] Diagnosis: ICD-10-CM Z46.0 Encounter for fit/adjst of spectacles and contact lenses Active Diagnosis [facility] Diagnosis: ICD-10-CM L60.3 Nail dystrophy Active Diagnosis [facility] Medications Combined list of outpatient medications from Department of Defense and Veterans Affairs facilities.Medications provided include 1) outpatient medications from the last 15 months, and 2) patient-reported medications. Medication Details Route Status Patient Instructions Prescription Expires Prescription Number Last Dispense Date Ordering Provider Order Date Order Qty Source ASPIRIN 81MG TAB,EC TAKE ONE TABLET BY MOUTH DAILY TO PREVENT A HEART ATTACK ORAL ACTIVE 09/26/2025 [id number] SANTOS,THY HEAD 2024 120 [facility] ASPIRIN 81MG TAB,EC TAKE ONE TABLET BY MOUTH DAILY TO PREVENT A HEART ATTACK ORAL 06/07/2024 [id number] SANTOS,THY HEAD 2022 120 [facility] ASPIRIN 81MG TAB,EC TAKE ONE TABLET BY MOUTH DAILY ORAL ACTIVE ANGIE SPANN 2010 [facility] ASPIRIN 81MG TAB,EC TAKE ONE TABLET BY MOUTH ONCE DAILY ORAL ACTIVE KENDAL FOSTER 2012 [facility] ATORVASTATI N [place] 80MG TAB TAKE ONE-HALF TABLET BY MOUTH ONCE DAILY FOR CHOLESTE ROL ORAL ACTIVE 11/27/2025 [id number] CHICO JOHNSON 2024 45 [facility] ATORVASTATI N [place] 80MG TAB TAKE ONE TABLET BY MOUTH AT BEDTIME FOR HIGH CHOLESTE ROL AND TRIGLYCE RIDES ORAL ACTIVE 09/26/2025 [id number] SANTOS,THY HEAD 2024 90 [facility] ATORVASTATI N [place] 80MG TAB TAKE ONE-HALF TABLET BY MOUTH ONCE DAILY FOR CHOLESTE ROL ORAL DISCONT INUED 09/26/2024 [id number] CHICO JOHNSON 2023 45 [facility] ATORVASTATI N [place] 80MG TAB TAKE ONE TABLET BY MOUTH AT BEDTIME FOR HIGH CHOLESTE ROL AND TRIGLYCE RIDES ORAL 06/07/2024 [id number] SANTOS,THY HEAD 2022 90 [facility] CHOLECALCIF JENNA 25MCG (1,000UNIT) TAB TAKE TWO TABLETS BY MOUTH DAILY TO PREVENT VITAMIN DEFICIEN CY ORAL ACTIVE 09/26/2025 [id number] SANTOS,THY HEAD 2024 200 [facility] CHOLECALCIF JENNA 25MCG (1,000UNIT) TAB TAKE ONE TABLET BY MOUTH ONCE DAILY FOR VITAMIN SUPPLEME NTATION ORAL ACTIVE 11/27/2025 [id number] 5 CHICO JOHNSON 2024 90 [facility] CHOLECALCIF JENNA 25MCG (1,000UNIT) TAB TAKE ONE TABLET BY MOUTH ONCE DAILY FOR VITAMIN SUPPLEME NTATION ORAL DISCONT INUED 09/26/2024 [id number] CHICO JOHNSON 2023 90 [facility] CHOLECALCIF JENNA 25MCG (1,000UNIT) TAB TAKE TWO TABLETS BY MOUTH DAILY TO PREVENT VITAMIN DEFICIEN CY ORAL 06/07/2024 [id number] SANTOS,THY HEAD 2022 180 [facility] METOPROLOL SUCCINATE 100MG TAB,SA TAKE ONE-HALF TABLET BY MOUTH DAILY FOR HIGH BLOOD PRESSURE (ONE TIME REFILL EXTENSIO N) ORAL ACTIVE 09/26/2025 [id number] 5 SANTOS,THY HEAD 2024 45 [facility] METOPROLOL SUCCINATE 100MG TAB,SA TAKE ONE-HALF TABLET BY MOUTH DAILY FOR HIGH BLOOD PRESSURE (ONE TIME REFILL EXTENSIO N) ORAL 09/14/2024 [id number] 4 MATILDA SANTOS HEAD 2023 15 [facility] METOPROLOL SUCCINATE 100MG TAB,SA TAKE ONE-HALF TABLET BY MOUTH DAILY FOR HIGH BLOOD PRESSURE ORAL 06/07/2024 [id number] SANTOSTHY HEAD 2022 45 [facility] METOPROLOL SUCCINATE 50MG TAB,SA TAKE ONE TABLET BY MOUTH ONCE DAILY FOR BLOOD PRESSURE /HEART ORAL ACTIVE 11/27/2025 [id number] 5 CHICO JOHNSON 2024 90 [facility] METOPROLOL SUCCINATE 50MG TAB,SA TAKE ONE TABLET BY MOUTH ONCE DAILY ORAL ACTIVE Robin WARD 2021 [facility] NITROGLYCER IN 0.4MG TAB,SUBLING UAL DISSOLVE ONE TABLET UNDER THE TONGUE EVERY 5 MINUTES NEEDED FOR ACUTE CHEST PAIN IF NO RELIEF AFTER 3 DOSES, CALL 911 OR GO TO NEAREST EMERGENC Y ROOM SUBLIN GUAL ACTIVE 11/27/2025 [id number] CHICO JOHNSON 2024 100 [facility] NITROGLYCER IN 0.4MG TAB,SUBLING UAL DISSOLVE ONE TABLET UNDER THE TONGUE EVERY 5 MINUTES NEEDED FOR ACUTE CHEST PAIN IF NO RELIEF AFTER 3 DOSES, CALL 911 OR GO TO NEAREST EMERGENC Y ROOM SUBLIN GUAL DISCONT INUED 03/05/2025 [id number] CHICO JOHNSON 2023 100 [facility] Allergies, Adverse Reactions, Alerts Combined list of allergies from Department of Defense and Veterans Affairs facilities. It does not include entries that were removed or entered in error. Substance Category Reaction Severity Reaction type Status Date Reported Comments Source SEAFOOD Propensity to adverse reactions to food (finding) Eruption active 7 [facility] SHELLFISH Propensity to adverse reactions to food (finding) Eruption active 3 [facility] Immunizations Combined list of available immunizations from the Department of Defense and Veterans Affairs facilities. Immunization Series Date Given Administered By Site Reaction Lot Number CVX Code Drug Starch Crab Status Comments Source INFLUENZA, UNSPECIFIED FORMULATION 2023 88 complet ed HISTORICA L INFORMATI ON - SOURCE UNSPECIFI ED, [facility] PNEUMOCOCCAL CONJUGATE PCV20, POLYSACCHARID E [id number] CONJUGATE, ADJUVANT, PF 2023 KENDAL WHARTON LEFT DELTO ID [id number] 216 complet ed [facility] COVID-19 (MODERNA), MRNA, LNP-S, PF, 50 MCG/0.5 ML (AGES 12+ YEARS) 1 2022 312 complet ed HISTORICA L INFORMATI ON - SOURCE UNSPECIFI ED, [facility] INFLUENZA, UNSPECIFIED FORMULATION 2022 88 complet ed HISTORICA L INFORMATI ON - SOURCE UNSPECIFI ED, [facility] INFLUENZA, UNSPECIFIED FORMULATION 2021 88 complet ed [facility]ORICA L INFORMATI ON - [facility] 2020 121 complet ed HISTORICA L INFORMATI ON - [facility]OURCE [facility] PNEUMOCOCCAL POLYSACCHARID E PPV23 2020 33 complet ed HISTORICA L INFORMATI ON - SOURCE [facility] TD(ADULT) UNSPECIFIED FORMULATION 2020 139 complet ed HISTORICA L INFORMATI ON - SOURCE UNSPECIFI ED, [facility] COVID-19 (PFIZER), MRNA, LNP-S, PF, 30 MCG/0.3 ML DOSE 2 2020 208 complet ed [facility] COVID-19 (PFIZER), MRNA, LNP-S, PF, 30 MCG/0.3 ML DOSE 1 2020 208 complet ed [place] INFLUENZA, UNSPECIFIED FORMULATION 2019 88 complet ed [facility] INFLUENZA, SEASONAL, INJECTABLE 2018 141 complet ed [facility] INFLUENZA, INJECTABLE, QUADRIVALENT 2017 158 complet ed [facility] INFLUENZA, SEASONAL, INJECTABLE 2017 141 complet ed in [place] [facility] INFLUENZA, SEASONAL, INJECTABLE 2017 141 complet ed [facility] FLU,3 YRS (HISTORICAL) 2016 88 complet ed [facility] INFLUENZA, INJECTABLE, QUADRIVALENT 2016 158 complet ed [facility] FLU,3 YRS (HISTORICAL) 2015 88 complet ed Site: Left Deltoid [facility] FLU,3 YRS (HISTORICAL) 2014 88 complet ed Site: Left Deltoid [facility] ZOSTER (SHINGLES) (HISTORICAL) 2014 121 complet ed Proximal Right Arm [facility] FLU,3 YRS (HISTORICAL) 2013 88 complet ed Site: Left Deltoid [facility] FLU,3 YRS (HISTORICAL) 2012 88 complet ed [facility] FLU,3 YRS (HISTORICAL) 2011 88 complet ed Site: Left Deltoid [facility] PNEUMOCOCCAL, UNSPECIFIED FORMULATION 2011 109 complet ed Site: Left Deltoid [facility] DTAP, UNSPECIFIED FORMULATION 2009 107 complet ed [facility] TD(ADULT) UNSPECIFIED FORMULATION 2009 139 complet ed [facility] Results Combined list of recent chemistry, hematology and other laboratory results from Department of Defense and Veterans Affairs, ranging from 15 months to all on record, depending upon the facility. Order Name Results Value Reference Range Date Interpretation Specimen Comments Source TSH THYROTROPIN [UNITS/VOLU ME] IN SERUM OR PLASMA BY DETECTION LIMIT <= 0.005 MIU/L 0.66 u[IU]/ mL 0.35 - 5.00 11/25 Specimen Type: SERUM No comment entered. Ordering Provider: NIKITA KIRBY Report Released Date/Time: Nov 25, 2024 01:28 PM Reporting Lab: [facility] [address] [address] Performing Lab: [facility] [address] [address] [facility] PSA PROSTATE SPECIFIC AG [MASS/VOLUM E] IN SERUM OR PLASMA BY IMMUNOASSAY 0.40 ng/mL 0.00 - 4.00 11/25 Specimen Type: SERUM No comment entered. Ordering Provider: NIKITA KIRBY Report Released Date/Time: Nov 25, 2024 01:28 PM Reporting Lab: [facility] [address] [address] Performing Lab: [facility] [address] [address] [facility] HEMOGLOBI N A1C PANEL HEMOGLOBIN A1C/HEMOGLO BIN.TOTAL IN BLOOD BY [facility] PROTOCOL 5.7 4.0 - 5.6 11/25 H Specimen Type: BLOOD Comment: Values obtained from A1C measurement s can vary. For atypical A1C assays, a reported value of 7.0 could actually be between 6.72 and 7.28 if measured by a reference method. A reported value of 9.0 could actually be between 8.73 and 9.27. Ref: http://www. ngsp.org/[place] Pdata.asp Ordering Provider: NIKITA KIRBY Report Released Date/Time: Nov 25, 2024 01:28 PM Reporting Lab: [facility] [address] [address] Performing Lab: [facility] [address] [address] [facility] BASIC METABOLIC PANEL (non-fast ing) UREA NITROGEN [MASS/VOLUM E] IN SERUM OR PLASMA 16 mg/dL 7 - 25 11/25 Specimen Type: SERUM No comment entered. Ordering Provider: NIKITA KIRBY Report Released Date/Time: Nov 25, 2024 01:28 PM Reporting Lab: [facility] [address] [address] Performing Lab: [facility] [address] [address] [facility] BASIC METABOLIC PANEL (non-fast ing) GLUCOSE [MASS/VOLUM E] IN SERUM OR PLASMA 100 mg/dL 65 - 100 11/25 Specimen Type: SERUM No comment entered. Ordering Provider: NIKITA KIRBY Report Released Date/Time: Nov 25, 2024 01:28 PM Reporting Lab: [facility] [address] [address] Performing Lab: [facility] [address] [address] [facility] BASIC METABOLIC PANEL (non-fast ing) SODIUM [MOLES/VOLU ME] IN SERUM OR PLASMA 136 mmol/L 135 - 145 11/25 Specimen Type: SERUM No comment entered. Ordering Provider: NIKITA KIRBY Report Released Date/Time: Nov 25, 2024 01:28 PM Reporting Lab: [facility] [address] [address] Performing Lab: [facility] [address] [address] [facility] BASIC METABOLIC PANEL (non-fast ing) POTASSIUM [MOLES/VOLU ME] IN SERUM OR PLASMA 4.4 mmol/L 3.5 - 5.0 11/25 Specimen Type: SERUM No comment entered. Ordering Provider: NIKITA KIRBY Report Released Date/Time: Nov 25, 2024 01:28 PM Reporting Lab: [facility] [address] [address] Performing Lab: [facility] [address] [address] [facility] BASIC METABOLIC PANEL (non-fast ing) CHLORIDE [MOLES/VOLU ME] IN SERUM OR PLASMA 103 mmol/L 100 - 110 11/25 Specimen Type: SERUM No comment entered. Ordering Provider: NIKITA KIRBY Report Released Date/Time: Nov 25, 2024 01:28 PM Reporting Lab: [facility] [address] Performing Lab: [facility] [address] [address] [facility] BASIC METABOLIC PANEL (non-fast ing) CARBON DIOXIDE, TOTAL [MOLES/VOLU ME] IN SERUM OR PLASMA 27 meq/L 20 - 30 11/25 Specimen Type: SERUM No comment entered. Ordering Provider: NIKITA KIRBY Report Released Date/Time: Nov 25, 2024 01:28 PM Reporting Lab: [facility] [address] [address] Performing Lab: [facility] [address] [address] [facility] BASIC METABOLIC PANEL (non-fast ing) CALCIUM [MASS/VOLUM E] IN SERUM OR PLASMA 9.3 mg/dL 8.5 - 10.2 11/25 Specimen Type: SERUM No comment entered. Ordering Provider: NIKITA KIRBY Report Released Date/Time: Nov 25, 2024 01:28 PM Reporting Lab: [facility] [address] Performing Lab: [facility] [address] [facility] BASIC METABOLIC PANEL (non-fast ing) CREATININE [MASS/VOLUM E] IN SERUM OR PLASMA 1.10 mg/dL 0.50 - 1.40 11/25 Specimen Type: SERUM No comment entered. Ordering Provider: NIKITA KIRBY Report Released Date/Time: Nov 25, 2024 01:28 PM Reporting Lab: [facility] [address] Performing Lab: [facility] [address] [address] [facility] BASIC METABOLIC PANEL (non-fast ing) GLOMERULAR FILTRATION RATE/1.73 SQ M.PREDICTED [VOLUME RATE/AREA] IN SERUM, PLASMA OR BLOOD BY CREATININE- BASED FORMULA (CKD-EPI 2020) 72 mL/min 60 11/25 Specimen Type: SERUM No comment entered. Ordering Provider: NIKITA KIRBY Report Released Date/Time: Nov 25, 2024 01:28 PM Reporting Lab: [address] [address] Performing Lab: [address] [address] [facility] LIVER FUNCTION PROTEIN [MASS/VOLUM E] IN SERUM OR PLASMA 6.7 g/dL 6.0 - 8.3 11/25 Specimen Type: SERUM No comment entered. Ordering Provider: NIKITA KIRBY Report Released Date/Time: Nov 25, 2024 01:28 PM Reporting Lab: [address] [address] Performing Lab: [address] [address] [facility] LIVER FUNCTION ALBUMIN [MASS/VOLUM E] IN SERUM OR PLASMA BY BROMOCRESOL PURPLE (BCP) DYE BINDING METHOD 4.0 g/dL 3.5 - 5.0 11/25 Specimen Type: SERUM No comment entered. Ordering Provider: NIKITA KIRBY Report Released Date/Time: Nov 25, 2024 01:28 PM Reporting Lab: [address] [address] Performing Lab: [facility] [address] [address] [facility] LIVER FUNCTION ALKALINE PHOSPHATASE [ENZYMATIC ACTIVITY/VO LUME] IN SERUM OR PLASMA 86 U/L 40 - 150 11/25 Specimen Type: SERUM No comment entered. Ordering Provider: NIKITA KIRBY Report Released Date/Time: Nov 25, 2024 01:28 PM Reporting Lab: [facility] [place] [facility] [address] [address] Performing Lab: [facility] [place] [facility] [address] [address] [facility] [place] [facility] LIVER FUNCTION ASPARTATE AMINOTRANSF ERASE [ENZYMATIC ACTIVITY/VO LUME] IN SERUM OR PLASMA BY WITH P-5'-P 24 U/L 5 - 34 11/25 Specimen Type: SERUM No comment entered. Ordering Provider: NIKITA KIRBY Report Released Date/Time: Nov 25, 2024 01:28 PM Reporting Lab: [facility] [place] [address] [address] Performing Lab: [facility] [place] [address] [address] [facility] [facility] LIVER FUNCTION ALANINE AMINOTRANSF ERASE [ENZYMATIC ACTIVITY/VO LUME] IN SERUM OR PLASMA BY WITH P-5'-P 30 U/L 11/25 Specimen Type: SERUM No comment entered. Ordering Provider: NIKITA KIRBY Report Released Date/Time: Nov 25, 2024 01:28 PM Reporting Lab: [facility] [place] [address] [address] Performing Lab: [facility] [place] [address] [address] [facility] [place] [facility] LIVER FUNCTION BILIRUBIN.T OTAL [MASS/VOLUM E] IN SERUM OR PLASMA 1.2 mg/dL 0.2 - 1.2 11/25 Specimen Type: SERUM No comment entered. Ordering Provider: NIKITA KIRBY Report Released Date/Time: Nov 25, 2024 01:28 PM Reporting Lab: [facility] [place] [address] [address] Performing Lab: [facility] [address] [address] [facility] LIVER FUNCTION BILIRUBIN.D IRECT [MASS/VOLUM E] IN SERUM OR PLASMA 0.4 mg/dL 0 - 0.5 11/25 Specimen Type: SERUM No comment entered. Ordering Provider: NIKITA KIRBY Report Released Date/Time: Nov 25, 2024 01:28 PM Reporting Lab: [facility]USETS [address] [address] Performing Lab: [facility] TRN [facility] [address] [facility]USE [facility] CBC AND DIFF (AUTO) LEUKOCYTES [#/VOLUME] IN BLOOD BY AUTOMATED COUNT 4.54 10*3/u L 4.50 - 11.00 11/25 Specimen Type: BLOOD No comment entered. Ordering Provider: NIKITA KIRBY Report Released Date/Time: Nov 25, 2024 01:28 PM Reporting Lab: [facility] [place] [address] [address] Performing Lab: [facility] [address] [address] [facility]USE [facility] CBC AND DIFF (AUTO) ERYTHROCYTE S [#/VOLUME] IN BLOOD BY AUTOMATED COUNT 4.35 10*6/u L 4.23 - 5.66 11/25 Specimen Type: BLOOD No comment entered. Ordering Provider: NIKITA KIRBY Report Released Date/Time: Nov 25, 2024 01:28 PM Reporting Lab: [facility]USETS [address] [address] Performing Lab: [facility]USETS [address] [address] [facility]USE [facility] CBC AND DIFF (AUTO) HEMOGLOBIN [MASS/VOLUM E] IN BLOOD 14.4 g/dL 12.8 - 17 11/25 Specimen Type: BLOOD No comment entered. Ordering Provider: NIKITA KIRBY Report Released Date/Time: Nov 25, 2024 01:28 PM Reporting Lab: [facility] [place] [facility] [address] [address] Performing Lab: [facility] [place] [facility] [address] [address] [facility] [facility] CBC AND DIFF (AUTO) HEMATOCRIT [VOLUME FRACTION] OF BLOOD BY AUTOMATED COUNT 41.1 39.2 - 50.4 11/25 Specimen Type: BLOOD No comment entered. Ordering Provider: NIKITA KIRBY Report Released Date/Time: Nov 25, 2024 01:28 PM Reporting Lab: [facility] [place] [facility] [address] [address] Performing Lab: [facility] [place] [facility] [address] [address] [facility] [place] [facility] CBC AND DIFF (AUTO) MCV [ENTITIC VOLUME] BY AUTOMATED COUNT 94.5 fL 82 - 99 11/25 Specimen Type: BLOOD No comment entered. Ordering Provider: NIKITA KIRBY Report Released Date/Time: Nov 25, 2024 01:28 PM Reporting Lab: [facility] [place] [facility] [address] [address] Performing Lab: [facility] [place] [facility] [address] [address] [facility] [place] [facility] CBC AND DIFF (AUTO) MCHC [MASS/VOLUM E] BY AUTOMATED COUNT 35.0 g/dL 30.8 - 35.1 11/25 Specimen Type: BLOOD No comment entered. Ordering Provider: NIKITA KIRBY Report Released Date/Time: Nov 25, 2024 01:28 PM Reporting Lab: [facility] [place] [facility] [address] [address] Performing Lab: [facility] [place] [facility] [address] [address] [facility] [place] [facility] CBC AND DIFF (AUTO) PLATELETS [#/VOLUME] IN BLOOD BY AUTOMATED COUNT 165 10*3/u L 140 - 360 04/01 /2025 Specimen Type: BLOOD No comment entered. Ordering Provider: NIKITA KIRBY Report Released Date/Time: Nov 25, 2024 01:28 PM Reporting Lab: [facility] [place] [facility] [address] [address] Performing Lab: [facility] [address] [address] [place] [facility] [place] [facility] CBC AND DIFF (AUTO) PLATELET MEAN VOLUME [ENTITIC VOLUME] IN BLOOD BY AUTOMATED COUNT 9.2 fL 9.2 - 12.4 11/25 Specimen Type: BLOOD No comment entered. Ordering Provider: NIKITA KIRBY Report Released Date/Time: Nov 25, 2024 01:28 PM Reporting Lab: [facility] [address] [address] Performing Lab: [facility] [address] [address] [facility] CBC AND DIFF (AUTO) ERYTHROCYTE DISTRIBUTIO N WIDTH [RATIO] BY AUTOMATED COUNT 11.7 12.0 - 16.0 11/25 L Specimen Type: BLOOD No comment entered. Ordering Provider: NIKITA KIRBY Report Released Date/Time: Nov 25, 2024 01:28 PM Reporting Lab: [facility] [place] [address] [address] Performing Lab: [place] [facility] [place] [address] [address] [facility] [place] [facility] CBC AND DIFF (AUTO) MONOCYTES [#/VOLUME] IN BLOOD BY AUTOMATED COUNT 0.46 10*3/u L 0.30 - 1.10 11/25 Specimen Type: BLOOD No comment entered. Ordering Provider: NIKITA KIRBY Report Released Date/Time: Nov 25, 2024 01:28 PM Reporting Lab: [facility] [place] [address] [address] Performing Lab: [facility] [place] [facility] [address] [address] [facility] [place] [facility] CBC AND DIFF (AUTO) MCH [ENTITIC MASS] BY AUTOMATED COUNT 33.1 pg 26.2 - 32.6 11/25 H Specimen Type: BLOOD No comment entered. Ordering Provider: NIKITA KIRBY Report Released Date/Time: Nov 25, 2024 01:28 PM Reporting Lab: [facility] [place] [facility] [address] [address] Performing Lab: [facility] [place] [facility] [address] [address] [facility] [place] [facility] CBC AND DIFF (AUTO) NEUTROPHILS /100 LEUKOCYTES IN BLOOD BY AUTOMATED COUNT 36.2 43.7 - 75.8 11/25 L Specimen Type: BLOOD No comment entered. Ordering Provider: NIKITA KIRBY Report Released Date/Time: Nov 25, 2024 01:28 PM Reporting Lab: [facility] [place] [facility] [address] [address] Performing Lab: [facility] [place] [facility] [address] [address] [facility] [place] [facility] CBC AND DIFF (AUTO) LYMPHOCYTES /100 LEUKOCYTES IN BLOOD BY AUTOMATED COUNT 47.1 14.0 - 42.3 11/25 H Specimen Type: BLOOD No comment entered. Ordering Provider: NIKITA KIRBY Report Released Date/Time: Nov 25, 2024 01:28 PM Reporting Lab: [facility] [place] [facility] [address] [address] Performing Lab: [facility] [place] [facility] [address] [address] [facility] [place] [facility] CBC AND DIFF (AUTO) MONOCYTES/1 00 LEUKOCYTES IN BLOOD BY AUTOMATED COUNT 10.1 5.1 - 13.7 11/25 Specimen Type: BLOOD No comment entered. Ordering Provider: NIKITA KIRBY Report Released Date/Time: Nov 25, 2024 01:28 PM Reporting Lab: [facility] [place] [facility] [address] [address] Performing Lab: [facility] [place] [facility] [address] [address] [facility] [place] [facility] CBC AND DIFF (AUTO) EOSINOPHILS /100 LEUKOCYTES IN BLOOD BY AUTOMATED COUNT 5.3 0.4 - 6.8 11/25 Specimen Type: BLOOD No comment entered. Ordering Provider: NIKITA KIRBY Report Released Date/Time: Nov 25, 2024 01:28 PM Reporting Lab: [facility] [place] [address] [address] Performing Lab: [facility] [place] [address] [address] [facility] [place] [facility] CBC AND DIFF (AUTO) BASOPHILS/1 00 LEUKOCYTES IN BLOOD BY AUTOMATED COUNT 1.1 0.1 - 2.0 11/25 Specimen Type: BLOOD No comment entered. Ordering Provider: NIKITA KIRBY Report Released Date/Time: Nov 25, 2024 01:28 PM Reporting Lab: [facility] [place] [address] [address] Performing Lab: [facility] [place] [address] [address] [facility] [place] [facility] CBC AND DIFF (AUTO) NEUTROPHILS [#/VOLUME] IN BLOOD BY AUTOMATED COUNT 1.64 10*3/u L 2.20 - 7.60 11/25 L Specimen Type: BLOOD No comment entered. Ordering Provider: NIKITA KIRBY Report Released Date/Time: Nov 25, 2024 01:28 PM Reporting Lab: [facility] [place] [address] [address] Performing Lab: [facility] [place] [address] [address] [facility] [place] [facility] CBC AND DIFF (AUTO) LYMPHOCYTES [#/VOLUME] IN BLOOD BY AUTOMATED COUNT 2.14 10*3/u L 1.00 - 3.20 11/25 Specimen Type: BLOOD No comment entered. Ordering Provider: NIKITA KIRBY Report Released Date/Time: Nov 25, 2024 01:28 PM Reporting Lab: [facility] [place] [address] [address] Performing Lab: [facility] [place] [address] [address] [facility] [place] [facility] CBC AND DIFF (AUTO) EOSINOPHILS [#/VOLUME] IN BLOOD BY AUTOMATED COUNT 0.24 10*3/u L 0.03 - 0.44 11/25 Specimen Type: BLOOD No comment entered. Ordering Provider: NIKITA KIRBY Report Released Date/Time: Nov 25, 2024 01:28 PM Reporting Lab: [facility] [place] [address] [address] Performing Lab: [facility] [place] [address] [address] [facility] [place] [facility] CBC AND DIFF (AUTO) BASOPHILS [#/VOLUME] IN BLOOD BY AUTOMATED COUNT 0.05 10*3/u L 0.01 - 0.13 11/25 Specimen Type: BLOOD No comment entered. Ordering Provider: NIKITA KIRBY Report Released Date/Time: Nov 25, 2024 01:28 PM Reporting Lab: [facility] [place] [address] [address] Performing Lab: [facility] [place] [address] [address] [facility] [place] [facility] CBC AND DIFF (AUTO) IMMATURE GRANULOCYTE S/100 LEUKOCYTES IN BLOOD BY AUTOMATED COUNT 0.2 0.0 - 0.7 11/25 Specimen Type: BLOOD No comment entered. Ordering Provider: NIKITA KIRBY Report Released Date/Time: Nov 25, 2024 01:28 PM Reporting Lab: [facility] [place] [address] [address] Performing Lab: [facility] [place] [facility] [address] [address] [facility] [place] [facility] CBC AND DIFF (AUTO) IMMATURE GRANULOCYTE S [#/VOLUME] IN BLOOD BY AUTOMATED COUNT 0.01 10*3/u L 0.00 - 0.06 11/25 Specimen Type: BLOOD No comment entered. Ordering Provider: NIKITA KIRBY Report Released Date/Time: Nov 25, 2024 01:28 PM Reporting Lab: [facility] [place] [facility] [address] [address] Performing Lab: [facility] [address] [facility]USE [facility] CBC AND DIFF (AUTO) NUCLEATED ERYTHROCYTE S/100 LEUKOCYTES [RATIO] IN BLOOD BY AUTOMATED COUNT 0.0 0.0 - 0.0 11/25 Specimen Type: BLOOD No comment entered. Ordering Provider: NIKITA KIRBY Report Released Date/Time: Nov 25, 2024 01:28 PM Reporting Lab: [facility]US[facility] [address] [address] Performing Lab: [facility]US[facility] [address] [address] [facility]USE [facility] CBC AND DIFF (AUTO) NUCLEATED ERYTHROCYTE S [#/VOLUME] IN BLOOD BY AUTOMATED COUNT 0.00 10*3/u L 0.00 - 0.00 11/25 Specimen Type: BLOOD No comment entered. Ordering Provider: NIKITA KIRBY Report Released Date/Time: Nov 25, 2024 01:28 PM Reporting Lab: [facility] [address] [address] Performing Lab: [facility] [address] [facility] PSA PROSTATE SPECIFIC AG [MASS/VOLUM E] IN SERUM OR PLASMA 0.70 ng/mL 0.00 - 4.00 09/24 Specimen Type: SERUM No comment entered. Ordering Provider: NIKITA KIRBY Report Released Date/Time: Sep 22, 2023 10:42 AM Reporting Lab: [facility] [place] [facility] [address] [address] Performing Lab: [facility] [place] [facility] [address] [address] [facility] [place] [facility] LIPID PANEL, NON FASTING CHOLESTEROL [MASS/VOLUM E] IN SERUM OR PLASMA 135 mg/dL 09/24 Specimen Type: SERUM No comment entered. Ordering Provider: NIKITA KIRBY Report Released Date/Time: Sep 22, 2023 10:42 AM Reporting Lab: [facility] [place] [facility] [address] [address] Performing Lab: [facility] [place] [facility] [address] [address] [facility] [place] [facility] LIPID PANEL, NON FASTING TRIGLYCERID E [MASS/VOLUM E] IN SERUM OR PLASMA 104 mg/dL 0 - 150 09/24 Specimen Type: SERUM No comment entered. Ordering Provider: NIKITA KIRBY Report Released Date/Time: Sep 22, 2023 10:42 AM Reporting Lab: [facility] [place] [facility] [address] [address] Performing Lab: [facility] [place] [facility] [address] [address] [facility] [place] [facility] LIPID PANEL, NON FASTING CHOLESTEROL IN LDL [MASS/VOLUM E] IN SERUM OR PLASMA BY CALCULATION 63 mg/dL 0 - 129 09/24 Specimen Type: SERUM No comment entered. Ordering Provider: NIKITA KIRBY Report Released Date/Time: Sep 22, 2023 10:42 AM Reporting Lab: [facility] [place] [facility] [address] [address] Performing Lab: [facility] [place] [facility] [address] [address] [facility] [place] [facility] LIPID PANEL, NON FASTING CHOLESTEROL .TOTAL/CHOL ESTEROL IN HDL [MASS RATIO] IN SERUM OR PLASMA 2.6 09/24 Specimen Type: SERUM No comment entered. Ordering Provider: NIKITA KIRBY Report Released Date/Time: Sep 22, 2023 10:42 AM Reporting Lab: [facility] [place] [facility] [address] [address] Performing Lab: [facility] [address] [address] [facility] LIPID PANEL, NON FASTING CHOLESTEROL IN HDL [MASS/VOLUM E] IN SERUM OR PLASMA 51 mg/dL 40 - 60 09/24 Specimen Type: SERUM No comment entered. Ordering Provider: NIKITA KIRBY Report Released Date/Time: Sep 22, 2023 10:42 AM Reporting Lab: [facility] [address] Performing Lab: [facility] [address] [address] [facility]USE [facility] LIVER FUNCTION PROTEIN [MASS/VOLUM E] IN SERUM OR PLASMA 6.5 g/dL 6.0 - 8.3 09/24 Specimen Type: SERUM No comment entered. Ordering Provider: NIKITA KIRBY Report Released Date/Time: Sep 22, 2023 10:42 AM Reporting Lab: [facility] [address] [address] Performing Lab: [facility] [address] [address] [facility] LIVER FUNCTION ALBUMIN [MASS/VOLUM E] IN SERUM OR PLASMA 3.8 g/dL 3.5 - 5.0 09/24 Specimen Type: SERUM No comment entered. Ordering Provider: NIKITA KIRBY Report Released Date/Time: Sep 22, 2023 10:42 AM Reporting Lab: [facility] [place] [facility] [address] [address] Performing Lab: [facility] [address] [address] [facility] [place] [facility] LIVER FUNCTION ALKALINE PHOSPHATASE [ENZYMATIC ACTIVITY/VO LUME] IN SERUM OR PLASMA 98 U/L 40 - 150 09/24 Specimen Type: SERUM No comment entered. Ordering Provider: NIKITA KIRBY Report Released Date/Time: Sep 22, 2023 10:42 AM Reporting Lab: [facility] [place] [facility] [address] [address] Performing Lab: [facility] [place] [facility] [address] [address] [facility] [place] [facility] LIVER FUNCTION ASPARTATE AMINOTRANSF ERASE [ENZYMATIC ACTIVITY/VO LUME] IN SERUM OR PLASMA 27 U/L 5 - 34 09/24 Specimen Type: SERUM No comment entered. Ordering Provider: NIKITA KIRBY Report Released Date/Time: Sep 22, 2023 10:42 AM Reporting Lab: [facility] [place] [address] [address] Performing Lab: [facility] [place] [facility] [address] [address] [facility] [place] [facility] LIVER FUNCTION ALANINE AMINOTRANSF ERASE [ENZYMATIC ACTIVITY/VO LUME] IN SERUM OR PLASMA 38 U/L 09/24 Specimen Type: SERUM No comment entered. Ordering Provider: NIKITA KIRBY Report Released Date/Time: Sep 22, 2023 10:42 AM Reporting Lab: [facility] [place] [address] [address] Performing Lab: [facility] [place] [address] [address] [facility] [place] [facility] LIVER FUNCTION BILIRUBIN.T OTAL [MASS/VOLUM E] IN SERUM OR PLASMA 0.9 mg/dL 0.2 - 1.2 09/24 Specimen Type: SERUM No comment entered. Ordering Provider: NIKITA KIRBY Report Released Date/Time: Sep 22, 2023 10:42 AM Reporting Lab: [facility] [place] [facility] [address] [address] Performing Lab: [facility] [place] [facility] [address] [address] [facility] [place] [facility] BASIC METABOLIC PANEL (non-fast ing) UREA NITROGEN [MASS/VOLUM E] IN SERUM OR PLASMA 14 mg/dL 7 - 25 09/24 Specimen Type: SERUM No comment entered. Ordering Provider: NIKITA KIRBY Report Released Date/Time: Sep 22, 2023 10:42 AM Reporting Lab: [facility] [address] [address] Performing Lab: [facility] [address] [address] [facility]USE [facility] BASIC METABOLIC PANEL (non-fast ing) GLUCOSE [MASS/VOLUM E] IN SERUM OR PLASMA 67 mg/dL 65 - 100 09/24 Specimen Type: SERUM No comment entered. Ordering Provider: NIKITA KIRBY Report Released Date/Time: Sep 22, 2023 10:42 AM Reporting Lab: [facility] [address] [address] Performing Lab: [facility] [address] [address] [facility]USE [facility] BASIC METABOLIC PANEL (non-fast ing) SODIUM [MOLES/VOLU ME] IN SERUM OR PLASMA 139 mmol/L 135 - 145 09/24 Specimen Type: SERUM No comment entered. Ordering Provider: NIKITA KIRBY Report Released Date/Time: Sep 22, 2023 10:42 AM Reporting Lab: [facility] [place] [facility] [address] [address] Performing Lab: [facility] [address] [address] [facility] BASIC METABOLIC PANEL (non-fast ing) POTASSIUM [MOLES/VOLU ME] IN SERUM OR PLASMA 4.4 mmol/L 3.5 - 5.0 09/24 Specimen Type: SERUM No comment entered. Ordering Provider: NIKITA KIRBY Report Released Date/Time: Sep 22, 2023 10:42 AM Reporting Lab: [facility] [address] [address] Performing Lab: [facility] [address] [address] [facility] BASIC METABOLIC PANEL (non-fast ing) CHLORIDE [MOLES/VOLU ME] IN SERUM OR PLASMA 104 mmol/L 100 - 110 09/24 Specimen Type: SERUM No comment entered. Ordering Provider: NIKITA KIRBY Report Released Date/Time: Sep 22, 2023 10:42 AM Reporting Lab: [facility] [address] [address] Performing Lab: [facility] [address] [address] [facility] BASIC METABOLIC PANEL (non-fast ing) CARBON DIOXIDE, TOTAL [MOLES/VOLU ME] IN SERUM OR PLASMA 29 meq/L 20 - 30 09/24 Specimen Type: SERUM No comment entered. Ordering Provider: NIKITA KIBRY Report Released Date/Time: Sep 22, 2023 10:42 AM Reporting Lab: [facility] [address] [address] Performing Lab: [facility] [address] [facility] BASIC METABOLIC PANEL (non-fast ing) CREATININE [MASS/VOLUM E] IN SERUM OR PLASMA 1.19 mg/dL 0.50 - 1.40 09/24 Specimen Type: SERUM No comment entered. Ordering Provider: NIKITA KIRBY Report Released Date/Time: Sep 22, 2023 10:42 AM Reporting Lab: [facility] [address] [address] Performing Lab: [facility] [address] [place] [address] [facility] [place] [facility] BASIC METABOLIC PANEL (non-fast ing) GLOMERULAR FILTRATION RATE/1.73 SQ M.PREDICTED [VOLUME RATE/AREA] IN SERUM, PLASMA OR BLOOD BY CREATININE- BASED FORMULA (CKD-EPI 2020) 66 mL/min 60 09/24 Specimen Type: SERUM No comment entered. Ordering Provider: NIKITA KIRBY Report Released Date/Time: Sep 22, 2023 10:42 AM Reporting Lab: [facility] [place] [facility] [address] [address] Performing Lab: [facility] [facility] [address] [address] [facility] [place] [facility] Vital Signs Combined list of inpatient and outpatient Vital Signs from Department of Defense and Veterans Affairs, ranging from 12 months to all on record, depending upon the facility. Vital Sign Value Date Comments Source SYSTOLIC BLOOD PRESSURE 145 11/27/19 25 09:36:28 [facility] [place] [facility] DIASTOLIC BLOOD PRESSURE 80 025 09:36:28 [facility] [place] [facility] PULSE OXIMETRY 98 11/26/2024 09:36:28 [facility] [place] [facility] WEIGHT 181 11/26/2024 09:36:28 [facility] [place] [facility] BMI 25 kg/m2 11/26/2024 09:36:28 [facility] [place] [facility] PULSE 66 11/26/2024 09:36:28 [facility] [facility] RESPIRATION 18 11/26/2024 09:36:28 [facility] [place] [facility] Encounters Combined list of: 1) Encounters from Department of Veterans Affairs facilities going backup to the last 18 months, not all VA inpatient encounters are included; 2) Encounters from the Department of Defense facilities going backup to 280 months. 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 02/04 [facility] [place] [place] [facility] Encounter [id number] IRAIS WHARTON 03/03 [facility] [place] [place] [facility] Encounter [id number] 05/27 [facility] [place] [place] [facility] En[facility] [id number] IRAIS WHARTON H 06/09 [facility] [place] [place] [facility] FIT SPECTACLES MONOFOCAL [id number] Diagnos is: ICD-10- CM Z46.0 Encount er for fit/adj st of spectac les and contact lenses CORY DAVILA 06/23 [facility] [place] [facility] Outpatient Encounter [id number] 09/22 [facility] Outpatient Encounter [id number] 09/25 [facility] Outpatient Encounter [id number] 09/25 [facility] OFFICE O/P EST LOW 20 MIN [id number] Diagnos is: ICD-10- CM I25.10 Athscl 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 MATILDA SANTOS 09/25 [facility] [place] [facility] Outpatient Encounter [id number] 11/25 [facility] [place] [facility] [place] [facility] Outpatient Encounter [id number] 11/26 [facility] [place] [facility] [place] [facility] OFFICE O/P EST MOD 30 MIN [id number] Diagnos is: ICD-10- CM I25.10 Athscl 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 NIKITA FUENTES 11/26 [facility] [place] [facility] [place] [facility] Outpatient Encounter [id number] 11/27 [facility] [place] [facility] [place] [facility] Outpatient Encounter [id number] 01/09 [facility] [place] [facility] Social History Combined list of available smoking, tobacco, and other social history from Department of Defense and Veterans Affairs facilities. Social History Type Response Date Comment Source Tobacco smoking status [facility] VA-TOBACCO NEVER USED CIGARETTES 09/25/2024 [facility] History of tobacco use VA-TOBACCO NEVER USED OTHER TYPE 09/25/2024 [facility] History of tobacco use VA-TOBACCO NEVER USED 11/23[facility]20[facility] [place] [facility] History of tobacco use VA-TOBACCO NEVER USED 10/13/2022 [facility] History of tobacco use VA-TOBACCO NEVER USED 03/03/2021 [facility] [place] [facility] History of tobacco use VA-TOBACCO NEVER USED 03/01/2020 [facility] [place] [facility] History of tobacco use MI-TOBACCO NEVER USED 12/09/2018 [facility] [place] [facility] History of tobacco use LIFETIME NON-TOBACCO USER 09/17/2017 [facility] [place] [facility] History of tobacco use LIFETIME NON-TOBACCO USER 08/08/2016 [facility] [place] [facility] History of tobacco use LIFETIME NON-TOBACCO USER 08/16/2015 [facility] [place] [facility] History of tobacco use LIFETIME NON-TOBACCO USER 03/07/2012 [facility] [place] [facility] History of tobacco use CURRENT SMOKER 01/24/2011 Pt states smokes marijuana cig one a week [facility] [place] [facility] Plan of Care List of future care activities from [facility] facilities. Additional future care activities may be listed in the Assessment and Plan section. Date/Time Care Activity Care Activity Detail Facili ty 07/21/2025 AMBULATORY - NONE AMBULATORY [facility] NONE [facility]
--- NOTE | 2025-03-26 08:55 | A.OFFPC_ITS ---
Vital Signs 03/26/25 08:56 Height 6 ft Weight 177 lb 4 oz BMI 24.0 Blood Pressure Location Lt brachial Position Sitting Pulse Source Pulse Oximeter Temp Source Temporal Artery Scan Oxygen Delivery Method Room Air Intake Visit Reasons: [facility] G0439 Check Weigher Required: No Accompanied by: Self / Same As Patient Allergies shellfish derived (SHELLFISH DERIVED) Allergy (Severe, Verified 03/26/25 08:58) HIVES, itching shellfish Allergy (Severe, Uncoded 03/26/25 08:58) Hives, itching Medication List - Last Reviewed 03/26/25 by Ruth Santiago MA aspirin (Adult Low Dose Aspirin) 81 mg PO DAILY atorvastatin 40 mg PO BEDTIME cholecalciferol (vitamin D3) 50 mcg PO DAILY diclofenac sodium 1% (Arthritis Pain (diclofenac)) 2 grams topical QID metoprolol succinate ER 50 mg PO DAILY Tobacco use date assessed: 03/26/25 Fall risk assessment: No Falls in past year Last assessed Fall Risk: 03/26/25 Dental Screening Dental Screen Date: 03/26/25 Did you have a dental visit in the last 12 months?: Yes Did you have a dental problem in the last 6 months where you did not have access to dental care?: No Was dental information given to patient?: No HPI V G0439 HPI Details 69-year-old male with past medical histo ry of hypertension, coronary artery disease, hypercholesterolemia, and SVT last seen 02/2024 coming in for annual wellness exam.?In review of the notes, patient was seen by Cardiology 03/2024 stable coronary artery disease plan to follow up in 1 year with echocardiogram. PSA: 02/2025 Eye exam: Colonoscopy: Vaccines: Shingles, TD, pneumonia, flu, and COVID up-to-date REPLACED BY [facility] Medical History SVT (supraventricular tachycardia) Allergic rhinitis Vitamin D deficiency Hypercholesterolemia Coronary artery disease Hypertension Erectile dysfunction Surgical History Hx of repair of right rotator cuff (01/2017) Hx of colonoscopy (2017) History of hernia repair Family History Father Diabetes Mother CVD (cardiovascular disease) Social History Are you a primary school child care attendant to a significant other at home: No Do you presently have visiting nurse or other home services: No Alcohol intake: current Alcohol intake frequency: a few times a month Patient Tobacco Use Status: Never used Tobacco Years Smoked: smokes pot Current occupational status: retired 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 Chandrakant Sol, Melida Richardson, Demetrius Valladares and colleagues, with an educational nicolle from [employer]. Review of Systems Const Denies body aches, Denies chills, Denies fever(s), Denies headache(s) and Denies poor appetite Eyes Reports no additional complaints ENT Denies dysphagia, Denies dizziness, Denies headache(s) and Denies odynophagia Card Denies chest pain, Denies syncope, Denies edema, Denies irregular heart rhythm, Denies lightheadedness and Denies dyspnea Resp Denies cough and Denies dyspnea GI Denies abdominal pain, Denies constipation, Denies dysphagia, Denies diarrhea, Denies nausea, Denies odynophagia and Denies vomiting Reports no additional complaints Musc Reports no additional complaints and Denies abnormal gait Skin/Breast Reports system reviewed and no additional complaints, except as documented Neuro Denies abnormal gait, Denies dizziness, Denies syncope and Denies headache(s) Psych Reports no additional complaints Physical exam (Primary Care) Vital Signs: Oxygen Delivery Method Room Air 03/26/25 08:56 Tobacco/Smoking Status: Tobacco use Status Tobacco use date assessed 03/26/25 03/26/25 08:57 Patient Tobacco Use Status Never used Tobacco 03/26/25 08:57 Thrive Assessment: Date of Thrive Assessment Date Thrive assessed 03/26/25 03/26/25 08:57 Const General: cooperative, healthy appearing, comfortable and no acute distress Orientation/consciousness: patient oriented x3 HENMT Head: Yes normocephalic Ears: hearing grossly normal bilaterally, external ears normal, TM's normal bilaterally and EAC's normal General nose exam: Normal external nose present Face and sinus: Yes normal facial exam and Yes sinuses nontender Mouth: Normal oral and palatal mucosa present and tongue normal Throat: Yes posterior oropharynx normal Eyes General: appearance normal, both eyes and all related structures Conjunctivae: conjunctivae normal Pupils: Equal, round and reactive pupils present EOM: EOMs intact bilaterally and No Nystagmus present Neck Neck: Yes normal visual inspection, Yes full ROM and Yes no lymphadenopathy Chest Chest palpation & inspection: normal inspection of the chest Resp Effort & Inspection: normal respiratory effort Auscultation: clear to auscultation bilaterally, no crackles, no rales, no rhonchi, no wheezes and breath sounds present Cardio Rate: regular rate Rhythm: regular rhythm Peripheral pulses: radial pulses present and dorsalis pedis present GI Inspection: Yes normal to inspection and No Abdominal wall edema Palpation (GI): Soft to palpation, not firm and nontender Auscultation: normal bowel sounds Rectal Exam - Male: Yes deferred General: Yes no CVA tenderness Back/Spine/Pelvis Back: no CVA tenderness Skin General skin exam: no rashes or lesions noted Neuro General: patient oriented x3 Cranial nerves: Yes Equal, round and reactive pupils present, Yes Midline tongue present, Yes Ability to bilaterally elevate shoulders present and No Nystagmus present Gait exam (Neuro): Normal gait present Extrem General: Yes normal to inspection, Yes full ROM, No no pedal edema and No edema Psych Speech and movement: Normal speech and movement present Affect: normal affect Insight: Good insight present (Psych) Judgement: Good judgement present (Psych) Coding
[2025-03-26 08:56] VITALS: BP 132/74; PULSE 78; TEMP 36.3; O2SAT 98; BMI 24.0
--- NOTE | 2025-03-26 09:04 | A.OFFVIS_ITS ---
Intake Vital Signs 03/26/25 08:56 Height 6 ft Weight 177 lb 4 oz BMI 24.0 BP 132/74 Blood Pressure Location Lt brachial Position Sitting Pulse 78 Pulse Source Pulse Oximeter Temp 97.4 F Temp Source Temporal Artery Scan Pulse Oximetry (%) 98 Oxygen Delivery Method Room Air Intake Visit Reasons: [facility] G0439 Allergies shellfish derived (SHELLFISH DERIVED) Allergy (Severe, Verified 03/26/25 08:58) HIVES, itching shellfish Allergy (Severe, Uncoded 03/26/25 08:58) Hives, itching Medication List - Last Reviewed 03/26/25 by Ruth Santiago MA aspirin (Adult Low Dose Aspirin) 81 mg PO DAILY atorvastatin 40 mg PO BEDTIME cholecalciferol (vitamin D3) 50 mcg PO DAILY diclofenac sodium 1% (Arthritis Pain (diclofenac)) 2 grams topical QID metoprolol succinate ER 50 mg PO DAILY HPI V G0439 HPI Details 69-year-old male with past medical histo ry of hypertension, coronary artery disease, hypercholesterolemia, and SVT last seen 02/2024 coming in for annual wellness exam.? In review of the notes, patient was seen by Cardiology 03/2024 stable coronary artery disease plan to follow up in 1 year with echocardiogram. Presenting for a wellness visit and follow-up on chronic conditions. The patient has a cataract in the right eye and is considering treatment options, including Lasik, although his current disability hearing officer does not perform this procedure. The patient has a history of SVT but has not experienced any recent episodes. He is aware of vagal maneuvers to manage potential episodes. The patient underwent a colonoscopy last year with no polyps found and is scheduled for a follow-up in 10 years. He also follows up with a pocket stitcher annually and has regular eye examinations. PSA: 02/2025 Eye exam: Dr. Lemons yearly Colonoscopy: 01/2024 Dr. Ga repeat in 10 years Vaccines: Shingles, flu, TD, PCV up-to-date [facility] Medical History SVT (supraventricular tachycardia) Allergic rhinitis Vitamin D deficiency Hypercholesterolemia Coronary artery disease Hypertension Erectile dysfunction Surgical History Hx of repair of right rotator cuff (01/2017) Hx of colonoscopy (2018) History of hernia repair Family History Father Diabetes Mother CVD (cardiovascular disease) Social History Are you a primary patient care technician to a significant other at home: No Do you presently have visiting nurse or other home services: No Alcohol intake: current Alcohol intake frequency: a few times a month Patient Tobacco Use Status: Never used Tobacco Years Smoked: smokes pot Current occupational status: retired 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 Cognitive needs: No Hearing needs: No Vision needs: No Questionnaire Medicare Wellness Checkup [age] What gender do you identify with?: male During the past 4 weeks, how much have you been bothered by emotional problems such as feeling anxious, depressed, irritable, sad or downhearted, and blue?: not at all During the past 4 weeks, has your physical & emotional health limited your social activities with family, friends, neighbors, or groups?: not at all During the past 4 weeks, how much bodily pain have you generally had?: no pain During the past 4 weeks, was someone available to help you if you needed & wa nted help?: no, not at all During the past 4 weeks, what was the hardest physical activity you could do for at least 2 minutes?: moderate Can you get to places out of walking distance without help? (For eg., can you travel alone on buses, taxis or drive your car?): Yes Can you go shopping for groceries or clothes without someone's help?: Yes Can you prepare your own meals?: Yes Can you do your housework without help?: Yes Because of any health problems, do you need the help of another person with your personal care needs such as eating, bathing, dressing or getting around the house?: No Can you handle your own money without help?: Yes During the past 4 weeks, how would you rate your health in general?: good During the past 4 weeks how have things been going for you?: pretty well Are you having difficulties driving your car?: no Do you always fasten your seat belt when you are in a car?: yes, usually During past 4 weeks, have you been bothered by the following: never: Trouble eating well? and Problems using the telephone? and seldom: Falling or dizzy when standing up, Sexual problems?, Teeth or denture problems? and Tiredness or fatigue? Have you fallen 2 or more times in the past year?: No Are you afraid of falling?: No Are you a smoker?: no During the past 4 weeks, how many drinks of wine, beer, or other alcoholic beverages did you have?: 2-5 drinks per week Do you exercise for about 20 minutes 3 or more times a week?: yes, most of the time Have you been given information to help with the following?: yes: Hazards in your house that might hurt you? and yes: Keeping track of your medications? How often do you have trouble taking medicines the way you have been told to take them?: I seldom take medications as prescribed How confident are you that you can control & manage most of your health problems?: very confident What is your race?: or origin or descent Activity of Daily Living Bathing - sponge bath, tub bath or shower: receives no assistance (gets in/out by self, if usual bathing means Dressing - getting clothes from closets & drawers, including inner/outer garments & fasteners.: gets clothes & gets completely dressed without help Toileting - going to the 'toilet room' for urine/bowel elimination & cleaning self/arranging clothes: goes to toilet room, cleans self, arranges clothes without help Transfer: moves in & out of bed and chair without help (may use support object) Continence: controls urination/bowel movements completely by self Feeding: feeds self without help Total Score: 0 Information obtained from: patient Using telephone: independent Traveling: independent Shopping: independent Preparing meals: independent Housework: independent Taking medicine: independent Managing money: independent PHQ-9 Over the last 2 weeks, how often have you been bothered by any of the following problems? 1. Little interest or pleasure in doing things: not at all 2. Feeling down, depressed, or hopeless: not at all 3. Trouble falling or staying asleep, or sleeping too much: not at all 4. Feeling tired or having little energy: not at all 5. Poor appetite or overeating: not at all 6. Feeling bad about yourself - or that you are a failure or have let yourself or your family down: not at all 7. Trouble concentrating on things, such as reading the newspaper or watching television: not at all 8. Moving or speaking so slowly that other people could have noticed. Or the opposite - being so fidgety or restless that you have been moving around a lot more than usual: not at all 9. Thoughts that you would be better off or of hurting yourself in some way: not at all Total score: 0 Depression Screening Interpretation: Negative Depression Screening Done: Yes 55782 - PHQ-9 Billing: Yes Source: Developed by Drs. Chandrakant Sol, Melida Richardson, Demetrius Valladares and colleagues, with an educational nicolle from [employer]. Review of Systems Const Denies body aches, Denies fatigue, Denies fever(s), Denies frequent falls, Denies headache(s) and Denies weakness Eyes Details: R cataract Reports no additional complaints and Denies change in vision ENT Denies dysphagia, Denies dizziness, Denies facial pain, Denies headache(s), Denies nasal congestion and Denies odynophagia Card Denies chest pain, Denies syncope, Denies irregular heart rhythm, Denies leg edema, Denies lightheadedness and Denies dyspnea Resp Denies cough and Denies dyspnea GI Denies abdominal pain, Denies constipation, Denies dysphagia, Denies dyspepsia, Denies diarrhea, Denies nausea, Denies odynophagia and Denies vomiting Denies dysuria, Denies urinary frequency, Denies urinary hesitancy and Denies urinary urgency Musc Denies back pain and Denies myalgias Skin/Breast Reports system reviewed and no additional complaints, except as documented Neuro Denies dizziness, Denies syncope, Denies frequent falls, Denies headache(s) and Denies weakness Psych Reports no additional complaints Endo Denies fatigue Physical Exam Vital Signs: Last Vital Signs Temp 97.4 F 03/26/25 08:56 Pulse 78 03/26/25 08:56 BP 132/74 03/26/25 08:56 Pulse Ox 98 03/26/25 08:56 Oxygen Delivery Method Room Air 03/26/25 08:56 BMI result Body Mass Index 24.0 Const General: cooperative, healthy appearing, comfortable and no acute distress Orientation/consciousness: patient oriented x3 HEENT Head: Yes normocephalic Ears: hearing grossly normal bilaterally, external ears normal, TM's normal bilaterally and EAC's normal General nose exam: Normal external nose present Face and sinus: Yes normal facial exam and Yes sinuses nontender Mouth: Normal oral and palatal mucosa present and tongue normal Throat: Yes posterior oropharynx normal Eyes General: appearance normal, both eyes and all related structures Conjunctivae: conjunctivae normal Pupils: Equal, round and reactive pupils present EOM: EOMs intact bilaterally and No Nystagmus present Neck Neck: Yes normal visual inspection, Yes full ROM and Yes no lymphadenopathy Chest Chest palpation & inspection: normal inspection of the chest Resp Effort & Inspection: normal respiratory effort Auscultation: clear to auscultation bilaterally, no crackles, no rales, no rhonchi, no wheezes and breath sounds present Cardio Rate: regular rate Rhythm: regular rhythm Peripheral pulses: radial pulses present and dorsalis pedis present GI Inspection: Yes normal to inspection and No Abdominal wall edema Palpation (GI): Soft to palpation, not firm and nontender Auscultation: normal bowel sounds Rectal Exam - Male: Yes deferred General: Yes no CVA tenderness Back/Spine/Pelvis Back: no CVA tenderness Skin General skin exam: no rashes or lesions noted Neuro General: patient oriented x3 Cranial nerves: Yes Equal, round and reactive pupils present, Yes Midline tongue present, Yes Ability to bilaterally elevate shoulders present and No Nystagmus present Gait exam (Neuro): Normal gait present Extrem General: Yes normal to inspection, Yes full ROM, No no pedal edema and No edema Psych Speech and movement: Normal speech and movement present Affect: normal affect Insight: Good insight present (Psych) Judgement: Good judgement present (Psych) Assessment & Plan Assessment & Plan (1) Anxiety: Code(s): F41.9 - Anxiety disorder, unspecified Plan: Denies symptoms of anxiety at this time (2) Hypertension: Code(s): I10 - Essential (primary) hypertension Qualifiers: Hypertension type: primary hypertension Qualified Code(s): I10 - Essential (primary) hypertension Plan: Continue on current blood pressure medication. Avoid salt intake and encourage healthy diet and regular exercise. (3) Coronary artery disease: Comment: Catheterization done [address] Petit. 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 70% lesion in the mid LAD. Manage medically with no symptoms of angina at high workload Code(s): I25.10 - Atherosclerotic heart disease of [place] coronary artery without angina pectoris Qualifiers: Associated angina: without angina Coronary Disease-Associated Artery/Lesion type: [place] artery [place] vs. transplanted heart: [place] heart Qualified Code(s): I25.10 - Atherosclerotic heart disease of [place] coronary artery without angina pectoris Plan: Patient is currently following with Cardiology. He has an appointment in March with a pocket stitcher after echocardiogram has been obtained. He is currently on daily low-dose aspirin, atorvastatin and metoprolol. Currently asymptomatic. (4) SVT (supraventricular tachycardia): Code(s): I47.1 - Supraventricular tachycardia Plan: Per last cardiology note SVT has remained stable. He is to continue on metoprolol therapy and continue to follow with pocket stitcher. (5) Hypercholesterolemia: Code(s): E78.00 - Pure hypercholesterolemia, unspecified Plan: Avoid foods that are high in cholesterol such as red meat, fried foods, eggs and baked goods. Triglyceride goal of less than 150 and LDL goal of less than 70. Continue on atorvastatin 40. Last LDL at goal (6) Medicare annual wellness visit, subsequent: Code(s): Z00.00 - Encounter for general adult medical examination without abnormal findings Plan: Patient is up-to-date on all recommended routine screenings and vaccinations for his age. Healthy diet and regular exercise is encouraged. [place] of care was reviewed with patient patient was provided with a written screening schedule. Healthcare proxy/ MOLST forms were reviewed with patient and he has these completed at home and will bring them in to be scanned. Patient has good cognition is able to make informed decisions about his own health. Plan The patient will continue with regular follow-ups for his chronic conditions, including annual cardiology visits and eye examinations. A repeat liver function test is planned in a few months to monitor the slightly elevated result attributed to fatty liver. The patient is advised to consider options for cataract treatment, including consulting with a specialist who performs Lasik, as his current disability hearing officer does not offer this procedure. For the low neutrophil count, no immediate intervention is required as it remains stable. The patient will undergo a TB blood test as the skin test is no longer preferred, and a chest x-ray will be considered if necessary. Additionally, a testosterone level test will be conducted as it was not included in the recent blood work. This note was constructed using voice recognition software. While every effort has been made to ensure accuracy and chemist inorganic, still areas may have been included sometimes these areas may affect the content or meeting of the given symptoms. Total time spent caring for the patient today was 30 minutes. This includes time spent before the visit reviewing the chart, time spent during the visit, and time spent after the visit and documentation. Patient was informed and verbally consented to the use of an ambient scribe for clinic note documentation during this visit. Orders: Orders Liver Panel 3 Months R79.89 - Other specified abnormal findings of blood chemistry T Spot TB Today Z00.00 - Encounter for general adult medical examination without abnormal findings Testosterone, Total Today F41.9 - Anxiety disorder, unspecified Quality Reporting (2019) Depression/Bipolar (159/160/161/177) PHQ-9: Total score: 0 Coding Level of Care Code Medicare Subsequent (G0439) Diagnoses Anxiety F41.9 Primary hypertension I10 Hypertension type: primary hypertension Coronary artery disease involving [place] coronary artery of [place] heart without angina pectoris I25.10 Associated angina: without angina Coronary Disease-Associated Artery/Lesion type: [place] artery [place] vs. transplanted heart: [place] heart SVT (supraventricular tachycardia) I47.1 Hypercholesterolemia E78.00 Medicare annual wellness visit, subsequent Z00.00 CPT Codes Advance Care Planning - Time spent: 1-15 minutes, not on file ([id number]) Additional Codes PHQ-9 - 06385 - PHQ-9 Billing: Yes ([id number]) Advance Care Planning Advance Care Planning discussion: Exists, not on file Date of discussion: 03/26/25 Who was present: Patient, myself Forms completed: Health Care Proxy and MOLST Time spent: 1-15 minutes, not on file Actual minutes spent: 5 Did not discuss due to Cultural/Spiritual beliefs: No
--- OUTSIDE RECORDS SUMMARY | 2025-03-26 09:15 | XMS_ITS | Clinical Summary ---
Author Organization [facility] Address [address] [place] [id number] Phone Care Team Providers Care Tank Pumper Name Role Phone Katy Han MD Primary Care Provider +1- [phone] Allergies Active Allergy Reactions Criticality Noted Date Comments Shellfish Containing Products Hives 2024 Medications No known medications Social History Tobacco Use Types Packs/Day Years Used Date Smoking Tobacco: Never Assessed Education Answer Date Recorded Are you interested in more education? Not on chris e 12/22/2022 Are you concerned about learning? Not on file 12/22/2022 No 12/22/2022 No 12/22/2022 Digital Access Answer Date Recorded No 01/20/2023 No 01/20/2023 Reliable internet access at home? Not on file 01/20/2023 Device with a working camera? Not on file Intimate Partner Violence Answer Date R ecorded Are you denied basic needs s uch as food, clothing, or medical care? No 11/27/2024 In the past 12 months have y ou been in a relationship with a person who hurts, threatens, or tries to control you? No 11/27/2024 Are you denied basic needs s uch as food, clothing, or medical care? No 11/27/2024 In the past 12 months have y ou been in a relationship with a person who hurts, threatens, or tries to control you? No 11/27/2024 Sex and Gender Information Value Date Recorded Sex Assigned at Not on file Legal Sex Male 9:56 PM EDT Gender Identity Not on file Sexual Orientation Not on file Last Filed Vital Signs Vital Sign Reading Time Taken Comments Blood Pressure 120/78 11/27/2024 6:58 PM EDT Pulse 71 11/27/2024 6:58 PM EDT Temperature 36.7 C (98.1 F) 11/27/2024 6:58 PM EDT Respiratory Rate 18 11/27/2024 6:58 PM EDT Oxygen Saturation 100% 11/27/2024 6:58 PM EDT Inhaled Oxygen Concentration - - Weight 83 kg (183 lb) 11/27/2024 6:58 PM EDT Height 180.3 cm (5' 11 ) 11/27/2024 6:58 PM EDT Body Mass Index 25.52 11/27/2024 6:58 PM EDT Plan of Treatment Health Maintenance Due Date Last Done Comments LIPID PANEL 1954 DEPRESSION SCREENING 1966 SMOKING Hx and SMOKELESS TOBACCO SCREENING 1967 HEPATITIS C SCREENING 1972 COLOGUARD 1999 COLONOSCOPY 1999 COLORECTAL CANCER SCREENING 1999 FIT TEST 1999 FOBT 1999 SIGMOIDOSCOPY 1999 VIRTUAL COLONOSCOPY 1999 ZOSTER VACCINES (3 of 3) 07/28/2021 021, 05/30/2020, 08/19/2014 COVID-19 VACCINE (2 - 2023-2 5 season) 2024 08/24/2021 PNEUMOCOCCAL VACCINES (50+ years) (3 of 3 - PCV20 or PCV21) 05/30/2025 05/30/2020, 02/21/2017 RSV VACCINE (1 - 1-dose 75+ series) 2029 Adult Td,Tdap Booster 03/07/2031 03/07/2021 HEPATITIS A VACCINES Aged Out No long er eligible based on patient's age to complete this topic HIB VACCINES Aged Out No longer eligi ble based on patient's age to complete this topic MENINGOCOCCAL VACCINES (ACWY) Aged Out No longer eligible based on patient's age to complete this topic MENINGOCOCCAL VACCINES (B) Aged Out N o longer eligible based on patient's age to complete this topic Medical Devices Not on file Insurance [employer] CROSS MEDEX SUPPLEMENT MEDICARE PART A & B [employer] MEDEX SUPPLEMENT MEDICARE PART A & B [employer] MEDEX SUPPLEMENT MEDICARE PART A & B [employer] [facility] MEDEX SUPPLEMENT MEDICARE PART A & B [employer] MEDEX SUPPLEMENT MEDICARE PART A & B [employer] MEDEX SUPPLEMENT MEDICARE PART A & B [employer] Care Teams Tank Pumper Relationship Specialty Start Date End Date Katy Han MD [address] [place] [address] PCP - General 06/14/17 Additional Source Comments The information contained in this document represents components of the legal health record. It is not the complete legal health record.[facility]
== END 2025-03-26 09:33 | disposition home or self-care (01) ==
LOC: HO.HMCH 08:54
PROVIDERS: PCP Internal Medicine
DX: Z00.00 Encounter for general adult medical examination without abnormal findings (principal); F41.9 Anxiety disorder, unspecified; I10 Essential (primary) hypertension; I25.10 Atherosclerotic heart disease of native coronary artery without angina pectoris; I47.10 Supraventricular tachycardia, unspecified; E78.00 Pure hypercholesterolemia, unspecified

== ENCOUNTER 2025-04-02 09:14 | Outpatient (REF) | payer MEDICARE, SELFPAY ==
--- OUTSIDE RECORDS SUMMARY | 2024-02-05 03:30 | XMS_ITS ---
Author Organization [facility] Address [address] [place] [address] Care Team Providers Care Timber Selector Name Role Phone Ziggy Dey MD Primary Care Provider Deandre Gant Jr REASON FOR VISIT screening colon Problems Problem Type SNOMED Code ICD Code Onset Dates Problem Status W/U Status Risk Notes Problem Personal history of colonic polyps (Z86.010) Active confirmed Encounters Encounter Location Date Provider Diagnosis [facility] [place] Outpatient [address] [place] [phone] 02/05/2024 Deandre Ga Jr Encounter for screening colonoscopy Z12.11 and Personal history of colonic polyps Z86.010 Assessments Encounter Date Diagnosis (ICD Code) Assessment Notes Treatment Notes Treatment Clinical Notes Section Notes 02/05/2024 Encounter for screening colonoscopy (ICD-10 - Z12.11) 02/05/2024 Personal history of colonic polyps (ICD-10 - Z86.010) Plan Of Treatment No Information Progress Notes * PRESLEY MILLSOB:1955 (69 yo M)Acc No.[id number]:02/05/2024 COLON WITH MAC Patient: ROXANNE INGRAM Provider: Alyssa Ga MD :1955 A ge:68 Y S ex:Male Date:02/05/2024 Address:[address] [place] [address] [id number] Pcp:Ziggy Dey MD Subjective: * Chief Complaints: [...] 02/05/2024 Generated for Betzaida piper/Ryan/Lashaitting on: 0 04/02/2025 09:37 AM EDT
--- OUTSIDE RECORDS SUMMARY | 2025-03-26 04:13 | XMS_ITS | Continuity of Care Document ---
Author Name [facility] Organization [facility] Care Team Providers Care Grade Foreman Name Role Phone [facility] Unavailable Unavailable Problems Combined list of problems [...] [facility] Coronary artery disease Active Condition [facility] Coronary artery disease (SNOMED CT 32385687) Active Condition January 24, 2011 Entered By: JAZMINE SPANN Comment: -- cardiac cath 01/03 70% LAD, 100% CFX marginal, 40% RCASep 26, 2023 Entered By: NIKITA HARRIS Comment: Inferior hypokinesis consistent with prior IMI// vet sees Dr Avni Momin cardio [facility] Essential hypertension Active Condition [facility] Exposure to Potentially Hazardous Substance (SCT [id number]) Active Condition [facility] History of male erectile disorder Active Condition [facility] Hyperlipidemia (SNOMED CT 98592038) Active Condition [facility] Mixed hyperlipidemia Active Condition [facility] Prediabetes Active Condition [facility] To[facility]ail thickened Active [facility] Vitamin D deficiency Active Condition [facility] Right Inguinal Hernia (ICD-9-CM 550.90) Inactive Condition 05/28/2014 [facility] Diagnosis: ICD-10-CM I25.10 Athscl heart disease of mechoopda coronary artery w/o ang pctrs Active Diagnosis [facility] Diagnosis: ICD-10-CM Z46.0 Encounter for fit/adjst of spectacles and contact lenses Active Diagnosis [facility] Diagnosis: ICD-10-CM L60.3 Nail dystrophy Active Diagnosis [facility] Medications Combined list of outpatient medications [...] PREVENT A HEART ATTACK ORAL ACTIVE 09/26/2025 [id number] SANTOS,THY HEAD 2024 120 [facility] ASPIRIN 81MG TAB,EC TAKE ONE TABLET BY MOUTH DAILY TO PREVENT A HEART ATTACK ORAL 06/07/2024 [id number] SANTOS,THY HEAD 2022 120 [facility] ASPIRIN 81MG TAB,EC TAKE ONE TABLET BY MOUTH DAILY ORAL ACTIVE ANGIE SPANN 2010 [facility] ASPIRIN 81MG TAB,EC TAKE ONE TABLET BY MOUTH ONCE DAILY ORAL ACTIVE KENDAL FOSTER 2012 [facility] ATORVASTATI N CA 80MG TAB TAKE ONE-HALF TABLET BY MOUTH ONCE DAILY FOR CHOLESTE ROL ORAL ACTIVE 11/27/2025 [id number] 5 CHICO JOHNSON 2024 45 [facility] ATORVASTATI N CA 80MG TAB TAKE ONE TABLET BY MOUTH AT BEDTIME FOR HIGH CHOLESTE ROL AND TRIGLYCE RIDES ORAL ACTIVE 09/26/2025 [id number] SANTOS,THY HEAD 2024 90 [facility] ATORVASTATI N CA 80MG TAB TAKE ONE-HALF TABLET BY MOUTH ONCE DAILY FOR CHOLESTE ROL ORAL DISCONT INUED 09/26/2024 [id number] CHICO JOHNSON 2023 45 [facility] ATORVASTATI N CA 80MG TAB TAKE ONE TABLET BY MOUTH AT BEDTIME FOR HIGH CHOLESTE ROL AND TRIGLYCE RIDES ORAL 06/07/2024 [id number] SANTOS,THY HEAD 2022 90 [facility] CHOLECALCIF JENNA 25MCG (1,000UNIT) TAB TAKE TWO TABLETS BY MOUTH DAILY TO PREVENT VITAMIN DEFICIEN CY ORAL ACTIVE 09/26/2025 [id number] SANTOS,THY HEAD 2024 200 [facility] CHOLECALCIF JENNA 25MCG (1,000UNIT) TAB TAKE ONE TABLET BY MOUTH ONCE DAILY FOR VITAMIN SUPPLEME NTATION ORAL ACTIVE 11/27/2025 [id number] 5 CHICO JOHNSON 2024 90 [facility] CHOLECALCIF JENNA 25MCG (1,000UNIT) TAB TAKE ONE TABLET BY MOUTH ONCE DAILY FOR VITAMIN SUPPLEME NTATION ORAL DISCONT INUED 09/26/2024 [id number] CHICO JOHNSON 2023 90 [facility] CHOLECALCIF JENNA 25MCG (1,000UNIT) TAB TAKE TWO TABLETS BY MOUTH DAILY TO PREVENT VITAMIN DEFICIEN CY ORAL 06/07/2024 [id number] SANTOS,THY HEAD 2022 180 [facility] METOPROLOL SUCCINATE 100MG TAB,SA TAKE ONE-HALF TABLET BY MOUTH DAILY FOR HIGH BLOOD PRESSURE (ONE TIME REFILL EXTENSIO N) ORAL ACTIVE 09/26/2025 [id number] SANTOS,THY HEAD 2024 45 [facility] METOPROLOL SUCCINATE 100MG TAB,SA TAKE ONE-HALF TABLET BY MOUTH DAILY FOR HIGH BLOOD PRESSURE (ONE TIME REFILL EXTENSIO N) ORAL 09/14/2024 [id number] MATILDA SANTOS HEAD 2023 15 [facility] METOPROLOL SUCCINATE 100MG TAB,SA TAKE ONE-HALF TABLET BY MOUTH DAILY FOR HIGH BLOOD PRESSURE ORAL 06/07/2024 [id number] SANTOSTHY HEAD 2022 45 [facility] METOPROLOL SUCCINATE 50MG TAB,SA TAKE ONE TABLET BY MOUTH ONCE DAILY FOR BLOOD PRESSURE /HEART ORAL ACTIVE 11/27/2025 [id number] CHICO JOHNSON 2024 90 [facility] METOPROLOL SUCCINATE 50MG TAB,SA TAKE ONE TABLET BY MOUTH ONCE DAILY ORAL ACTIVE Robin WARD 2021 [facility] NITROGLYCER IN 0.4MG TAB,SUBLING UAL DISSOLVE ONE TABLET UNDER THE TONGUE EVERY 5 MINUTES NEEDED FOR ACUTE CHEST PAIN IF NO RELIEF AFTER 3 DOSES, CALL 911 OR GO TO NEAREST EMERGENC Y ROOM SUBLIN GUAL ACTIVE 11/27/2025 [id number] 5 CHICO JOHNSON 2024 100 [facility] [place] NITROGLYCER IN 0.4MG TAB,SUBLING UAL DISSOLVE ONE TABLET UNDER THE TONGUE EVERY 5 MINUTES NEEDED FOR ACUTE CHEST PAIN IF NO RELIEF AFTER 3 DOSES, CALL 911 OR GO TO NEAREST EMERGENC Y ROOM SUBLIN GUAL DISCONT INUED 03/05/2025 [id number] CHICO JOHNSON 2023 100 [facility] Allergies, Adverse Reactions, Alerts Combined list of allergies from Department of Defense and Veterans Affairs facilities. It does not include entries that were removed or entered in error. Substance Category Reaction Severity Reaction type Status Date Reported Comments Source SEAFOOD Propensity to adverse reactions to food (finding) Eruption active 7 [facility] SHELLFISH Propensity to adverse reactions to food (finding) Eruption active 3 [facility] Immunizations Combined list of available immunizations from the Department of Defense and Veterans Affairs facilities. Immunization Series Date Given Administered By Site Reaction Lot Number CVX Code Drug Harness Cleaner Status Comments Source INFLUENZA, UNSPECIFIED FORMULATION 2023 88 complet ed HISTORICA L INFORMATI ON - SOURCE UNSPECIFI ED, [facility] PNEUMOCOCCAL CONJUGATE PCV20, POLYSACCHARID E [id number] CONJUGATE, ADJUVANT, PF 2023 KENDAL WHARTON LEFT DELTO ID [id number] 216 complet ed [facility] AT [facility] COVID-19 (MODERNA), MRNA, LNP-S, PF, 50 MCG/0.5 ML (AGES 12+ YEARS) 1 2022 312 complet ed [facility]ISTORICA L INFORMATI ON - SOURCE UNSPECIFI ED, [facility] INFLUENZA, UNSPECIFIED FORMULATION 2022 88 complet ed HISTORICA L INFORMATI ON - SOURCE UNSPECIFI ED, [facility] INFLUENZA, UNSPECIFIED FORMULATION 2021 88 complet ed [facility] 121 complet ed [facility]FORMATI [facility] - [facility] PNEUMOCOCCAL POLYSACCHARID E PPV23 2020 33 complet ed [facility]FORMAT[facility] - [facility] TD(ADULT) UNSPECIFIED FORMULATION 2020 139 complet ed HISTORICA L INFORMATI ON - SOURCE UNSPECIFI ED, [facility] COVID-19 (PFIZER), MRNA, LNP-S, PF, 30 MCG/0.3 ML DOSE 2 2020 208 complet ed [place] [facility] COVID-19 (PFIZER), MRNA, LNP-S, PF, 30 MCG/0.3 ML DOSE 1 2020 208 complet ed [place] INFLUENZA, UNSPECIFIED FORMULATION 2019 88 complet ed [facility] INFLUENZA, SEASONAL, INJECTABLE 2018 141 complet ed [place] [facility] INFLUENZA, INJECTABLE, QUADRIVALENT 2017 158 complet ed [facility] INFLUENZA, SEASONAL, INJECTABLE 2017 141 complet ed in [place] [facility] INFLUENZA, [...] Nov 25, 2024 01:28 PM Reporting Lab: [facility] [address] [address] Performing Lab: [facility] [address] [address] [facility] PSA PROSTATE SPECIFIC AG [MASS/VOLUM E] IN SERUM OR PLASMA BY IMMUNOASSAY 0.40 ng/mL 0.00 - 4.00 11/25 Specimen Type: SERUM No comment entered. Ordering Provider: NIKITA KIRBY Report Released Date/Time: Nov 25, 2024 01:28 PM Reporting Lab: [facility] [address] [address] Performing Lab: [facility] [address] [address] [facility] HEMOGLOBI N A1C PANEL HEMOGLOBIN A1C/HEMOGLO BIN.TOTAL [...] Nov 25, 2024 01:28 PM Reporting Lab: [facility] [address] [address] Performing [facility]: [facility] [address] [address] [facility] BASIC METABOLIC PANEL (non-fast ing) UREA NITROGEN [MASS/VOLUM E] IN SERUM OR PLASMA 16 mg/dL 7 - 25 11/25 Specimen Type: SERUM No comment entered. Ordering Provider: NIKITA KIRBY Report Released Date/Time: Nov 25, 2024 01:28 PM Reporting Lab: [facility] [address] [facility] [address] Performing Lab: [facility] [address] [facility] [address] [facility] BASIC METABOLIC PANEL (non-fast ing) GLUCOSE [MASS/VOLUM E] IN SERUM OR PLASMA 100 mg/dL 65 - 100 11/25 Specimen Type: SERUM No comment entered. Ordering Provider: NIKITA KIRBY Report Released Date/Time: Nov 25, 2024 01:28 PM Reporting Lab: [facility] [address] [facility] [address] Performing Lab: [facility] [address] [address] [facility] BASIC METABOLIC PANEL (non-fast ing) SODIUM [MOLES/VOLU ME] IN SERUM OR PLASMA 136 mmol/L 135 - 145 11/25 Specimen Type: SERUM No comment entered. Ordering Provider: NIKITA KIRBY Report Released Date/Time: Nov 25, 2024 01:28 PM Reporting Lab: [facility] [address] [facility] [address] Performing Lab: [facility] [address] [address] [facility] BASIC METABOLIC PANEL (non-fast ing) POTASSIUM [MOLES/VOLU ME] IN SERUM OR PLASMA 4.4 mmol/L 3.5 - 5.0 11/25 Specimen Type: SERUM No comment entered. Ordering Provider: NIKITA KIRBY Report Released Date/Time: Nov 25, 2024 01:28 PM Reporting Lab: [facility] [address] [facility] [address] Performing Lab: [facility] [address] [address] [facility] BASIC METABOLIC PANEL (non-fast ing) CHLORIDE [MOLES/VOLU ME] IN SERUM OR PLASMA 103 mmol/L 100 - 110 11/25 Specimen Type: SERUM No comment entered. Ordering Provider: NIKITA KIRBY Report Released Date/Time: Nov 25, 2024 01:28 PM Reporting Lab: [facility]ITALRLAKEL[facility]OSPITALTRN [facility]USE[address] [address] Performing Lab: [facility]ITALRFLOWERS HOSPITALN [address] [address] [facility] BASIC METABOLIC PANEL (non-fast ing) CARBON DIOXIDE, TOTAL [MOLES/VOLU ME] IN SERUM OR PLASMA 27 meq/L 20 - 30 11/25 Specimen Type: SERUM No comment entered. Ordering Provider: NIKITA KIRBY Report Released Date/Time: Nov 25, 2024 01:28 PM Reporting Lab: [facility] [address] [address] Performing Lab: [facility]ITALRFLOWERS HOSPITALN [address] [address] [facility] BASIC METABOLIC PANEL (non-fast ing) CALCIUM [MASS/VOLUM E] IN SERUM OR PLASMA 9.3 mg/dL 8.5 - 10.2 11/25 Specimen Type: SERUM No comment entered. Ordering Provider: NIKITA KIRBY Report Released Date/Time: Nov 25, 2024 01:28 PM Reporting Lab: [facility]OSPITALRLAKELAND COMMUNITY HOSPITALTRN [facility]AREUSE[address] [address] Performing Lab: [facility]PITALRLAKELAND COMMUNITY HOSPITALTRN [facility]AREUSE[address] [address] [facility] BASIC METABOLIC PANEL (non-fast ing) CREATININE [MASS/VOLUM E] IN SERUM OR PLASMA 1.10 mg/dL 0.50 - 1.40 11/25 Specimen Type: SERUM No comment entered. Ordering Provider: NIKITA KIRBY Report Released Date/Time: Nov 25, 2024 01:28 PM Reporting Lab: [facility] [address] Performing Lab: [facility] [address] [facility] [address] [facility] BASIC METABOLIC PANEL (non-fast ing) GLOMERULAR FILTRATION RATE/1.73 SQ M.PREDICTED [VOLUME RATE/AREA] IN SERUM, PLASMA OR BLOOD BY CREATININE- BASED FORMULA (CKD-EPI 2020) 72 mL/min 60 11/25 Specimen Type: SERUM No comment entered. Ordering Provider: NIKITA KIRBY Report Released Date/Time: Nov 25, 2024 01:28 PM Reporting Lab: [address] [address] Performing Lab: [address] [address] [facility] LIVER FUNCTION PROTEIN [MASS/VOLUM E] IN SERUM OR PLASMA 6.7 g/dL 6.0 - 8.3 11/25 Specimen Type: SERUM No comment entered. Ordering Provider: NIKITA KIRBY Report Released Date/Time: Nov 25, 2024 01:28 PM Reporting Lab: [address] [address] Performing Lab: [address] [address] [facility] LIVER FUNCTION ALBUMIN [MASS/VOLUM E] IN SERUM OR PLASMA BY BROMOCRESOL PURPLE (BCP) DYE BINDING METHOD 4.0 g/dL 3.5 - 5.0 11/25 Specimen Type: SERUM No comment entered. Ordering Provider: NIKITA KIRBY Report Released Date/Time: Nov 25, 2024 01:28 PM Reporting Lab: [address] [address] Performing Lab: [facility] [address] [address] [facility] LIVER FUNCTION ALKALINE PHOSPHATASE [ENZYMATIC ACTIVITY/VO LUME] IN SERUM OR PLASMA 86 U/L 40 - 150 11/25 Specimen Type: SERUM No comment entered. Ordering Provider: NIKITA KIRBY Report Released Date/Time: Nov 25, 2024 01:28 PM Reporting Lab: [facility] [place] [facility] [address] [facility] [address] Performing Lab: [facility] [place] [facility] [address] [facility] [address] [facility] [place] [facility] LIVER FUNCTION ASPARTATE AMINOTRANSF ERASE [ENZYMATIC ACTIVITY/VO LUME] IN SERUM OR PLASMA BY WITH P-5'-P 24 U/L 5 - 34 11/25 Specimen Type: SERUM No comment entered. Ordering Provider: NIKITA KIRBY Report Released Date/Time: Nov 25, 2024 01:28 PM Reporting Lab: [facility] [place] [address] [address] Performing Lab: [facility] [place] [address] [address] [facility] [facility] LIVER FUNCTION ALANINE AMINOTRANSF ERASE [ENZYMATIC ACTIVITY/VO LUME] IN SERUM OR PLASMA BY WITH P-5'-P 30 U/L 11/25 Specimen Type: SERUM No comment entered. Ordering Provider: NIKITA KIRBY Report Released Date/Time: Nov 25, 2024 01:28 PM Reporting Lab: [facility] [place] [address] [address] Performing Lab: [facility] [place] [address] [address] [facility] [place] [facility] LIVER FUNCTION BILIRUBIN.T OTAL [MASS/VOLUM E] IN SERUM OR PLASMA 1.2 mg/dL 0.2 - 1.2 11/25 Specimen Type: SERUM No comment entered. Ordering Provider: NIKITA KIRBY Report Released Date/Time: Nov 25, 2024 01:28 PM Reporting Lab: [facility] [place] [address] [address] Performing Lab: [place] [facility] [address] [address] [facility]ITALN [facility]USE [facility] LIVER FUNCTION BILIRUBIN.D IRECT [MASS/VOLUM E] IN SERUM OR PLASMA 0.4 mg/dL 0 - 0.5 11/25 Specimen Type: SERUM No comment entered. Ordering Provider: NIKITA KIRBY Report Released Date/Time: Nov 25, 2024 01:28 PM Reporting Lab: [facility]OSPITALRFLOWERS HOSPITALN [facility]CAREUSETS [address] [address] Performing Lab: [facility] HOSPITALRL TRN [facility]CAREUSE[address] [address] [facility] CBC AND DIFF (AUTO) LEUKOCYTES [#/VOLUME] IN BLOOD BY AUTOMATED COUNT 4.54 10*3/u L 4.50 - 11.00 11/25 Specimen Type: BLOOD No comment entered. Ordering Provider: NIKITA KIRBY Report Released Date/Time: Nov 25, 2024 01:28 PM Reporting Lab: [facility] HOSPITALRL TRN [place] [address] [address] Performing Lab: [facility] HOSPITALRFLOWERS HOSPITALN [address] [address] [facility]USE [facility] CBC AND DIFF (AUTO) ERYTHROCYTE S [#/VOLUME] IN BLOOD BY AUTOMATED COUNT 4.35 10*6/u L 4.23 - 5.66 11/25 Specimen Type: BLOOD No comment entered. Ordering Provider: NIKITA KIRBY Report Released Date/Time: Nov 25, 2024 01:28 PM Reporting Lab: [facility] HOSPITALRL TRN [facility]CAREUSETS [address] [address] Performing Lab: [facility]OSPITALRLAKELAND COMMUNITY HOSPITALTRN [facility]ALTHCAREUSETS [address] [address] [facility]AREUSE [facility] CBC AND DIFF (AUTO) HEMOGLOBIN [MASS/VOLUM E] IN BLOOD 14.4 g/dL 12.8 - 17 11/25 Specimen Type: BLOOD No comment entered. Ordering Provider: NIKITA KIRBY Report Released Date/Time: Nov 25, 2024 01:28 PM Reporting Lab: [facility] [place] [facility] [address] [facility] [address] Performing Lab: [place] [facility] [place] [facility] [address] [facility] [address] [facility] [place] [facility] CBC AND DIFF (AUTO) HEMATOCRIT [VOLUME FRACTION] OF BLOOD BY AUTOMATED COUNT 41.1 39.2 - 50.4 11/25 Specimen Type: BLOOD No comment entered. Ordering Provider: NIKITA KIRBY Report Released Date/Time: Nov 25, 2024 01:28 PM Reporting Lab: [facility] [place] [facility] [address] [facility] [address] Performing Lab: [facility] [place] [facility] [address] [facility] [address] [facility] [place] [facility] CBC AND DIFF (AUTO) MCV [ENTITIC VOLUME] BY AUTOMATED COUNT 94.5 fL 82 - 99 11/25 Specimen Type: BLOOD No comment entered. Ordering Provider: NIKITA KIRBY Report Released Date/Time: Nov 25, 2024 01:28 PM Reporting Lab: [facility] [place] [facility] [address] [facility] [address] Performing Lab: [facility] [place] [facility] [address] [facility] [address] [place] [facility] [place] [facility] CBC AND DIFF (AUTO) MCHC [MASS/VOLUM E] BY AUTOMATED COUNT 35.0 g/dL 30.8 - 35.1 11/25 Specimen Type: BLOOD No comment entered. Ordering Provider: NIKITA KIRBY Report Released Date/Time: Nov 25, 2024 01:28 PM Reporting Lab: [facility] [place] [facility] [address] [facility] [address] Performing Lab: [facility] [place] [facility] [address] [facility] [address] [facility] [place] [facility] CBC AND DIFF (AUTO) PLATELETS [#/VOLUME] IN BLOOD BY AUTOMATED COUNT 165 10*3/u L 140 - 360 04/01 /2025 Specimen Type: BLOOD No comment entered. Ordering Provider: NIKITA KIRBY Report Released Date/Time: Nov 25, 2024 01:28 PM Reporting Lab: [facility] [place] [facility] [address] [facility] [address] Performing Lab: [facility]ITALRL TRN [facility]CAREUSETS [address] [address] [place] [facility] [place] [facility] CBC AND DIFF (AUTO) PLATELET MEAN VOLUME [ENTITIC VOLUME] IN BLOOD BY AUTOMATED COUNT 9.2 fL 9.2 - 12.4 11/25 Specimen Type: BLOOD No comment entered. Ordering Provider: NIKITA KIRBY Report Released Date/Time: Nov 25, 2024 01:28 PM Reporting Lab: [facility]PITALRLAKELAND COMMUNITY HOSPITALTRN [facility]CAREUSETS [address] [address] Performing Lab: [facility] HOSPITALRL TRN [facility]ALTHCAREUSETS [address] [address] [facility] HOSPITALRL TRN [facility]PITALCHUSE TS [facility] CBC AND DIFF (AUTO) ERYTHROCYTE DISTRIBUTIO N WIDTH [RATIO] BY AUTOMATED COUNT 11.7 12.0 - 16.0 11/25 L Specimen Type: BLOOD No comment entered. Ordering Provider: NIKITA KIRBY Report Released Date/Time: Nov 25, 2024 01:28 PM Reporting Lab: [facility]OSPITALRL TRN [place] [address] [address] Performing Lab: [place] [facility] [place] [address] [address] [facility]ITALRL TRN [place] [facility] CBC AND DIFF (AUTO) MONOCYTES [#/VOLUME] IN BLOOD BY AUTOMATED COUNT 0.46 10*3/u L 0.30 - 1.10 11/25 Specimen Type: BLOOD No comment entered. Ordering Provider: NIKITA KIRBY Report Released Date/Time: Nov 25, 2024 01:28 PM Reporting Lab: [facility]ITALRL W[facility] [place] [address] [address] Performing Lab: [facility] [place] [facility] [address] [facility] [address] [facility] CBC AND DIFF (AUTO) MCH [ENTITIC MASS] BY AUTOMATED COUNT 33.1 pg 26.2 - 32.6 11/25 H Specimen Type: BLOOD No comment entered. Ordering Provider: NIKITA KIRBY Report Released Date/Time: Nov 25, 2024 01:28 PM Reporting Lab: [facility] [place] [facility] [address] [facility] [address] Performing Lab: [facility] [place] [facility] [address] [facility] [address] [facility] CBC AND DIFF (AUTO) NEUTROPHILS /100 LEUKOCYTES IN BLOOD BY AUTOMATED COUNT 36.2 43.7 - 75.8 11/25 L Specimen Type: BLOOD No comment entered. Ordering Provider: NIKITA KIRBY Report Released Date/Time: Nov 25, 2024 01:28 PM Reporting Lab: [facility] [place] [facility] [address] [facility] [address] Performing Lab: [facility] [place] [facility] [address] [facility] [address] [facility] CBC AND DIFF (AUTO) LYMPHOCYTES /100 LEUKOCYTES IN BLOOD BY AUTOMATED COUNT 47.1 14.0 - 42.3 11/25 H Specimen Type: BLOOD No comment entered. Ordering Provider: NIKITA KIRBY Report Released Date/Time: Nov 25, 2024 01:28 PM Reporting Lab: [facility] [address] [facility] [address] Performing Lab: [facility] [address] [facility] [address] [facility] CBC AND DIFF (AUTO) MONOCYTES/1 00 LEUKOCYTES IN BLOOD BY AUTOMATED COUNT 10.1 5.1 - 13.7 11/25 Specimen Type: BLOOD No comment entered. Ordering Provider: NIKITA KIRBY Report Released Date/Time: Nov 25, 2024 01:28 PM Reporting Lab: [facility] [facility] [address] [facility] [address] Performing Lab[facility] [facility] [address] [facility] [address] [facility] CBC AND DIFF (AUTO) EOSINOPHILS /100 LEUKOCYTES IN BLOOD BY AUTOMATED COUNT 5.3 0.4 - 6.8 11/25 Specimen Type: BLOOD No comment entered. Ordering Provider: NIKITA KIRBY Report Released Date/Time: Nov 25, 2024 01:28 PM Reporting Lab: [facility] [address] [address] Performing Lab: [facility] [place] [address] [address] [facility] CBC AND DIFF (AUTO) BASOPHILS/1 00 LEUKOCYTES IN BLOOD BY AUTOMATED COUNT 1.1 0.1 - 2.0 11/25 Specimen Type: BLOOD No comment entered. Ordering Provider: NIKITA KIRBY Report Released Date/Time: Nov 25, 2024 01:28 PM Reporting Lab: [facility] [address] [address] Performing Lab: [facility] [address] [address] [facility] CBC AND DIFF (AUTO) NEUTROPHILS [#/VOLUME] IN BLOOD BY AUTOMATED COUNT 1.64 10*3/u L 2.20 - 7.60 11/25 L Specimen Type: BLOOD No comment entered. Ordering Provider: NIKITA KIRBY Report Released Date/Time: Nov 25, 2024 01:28 PM Reporting Lab: [facility] [place] [address] [address] Performing Lab: [facility] [place] [address] [address] [facility] [place] [facility] CBC AND DIFF (AUTO) LYMPHOCYTES [#/VOLUME] IN BLOOD BY AUTOMATED COUNT 2.14 10*3/u L 1.00 - 3.20 11/25 Specimen Type: BLOOD No comment entered. Ordering Provider: NIKITA KIRBY Report Released Date/Time: Nov 25, 2024 01:28 PM Reporting Lab: [facility] [place] [address] [address] Performing Lab: [facility] [place] [address] [address] [facility] [place] [facility] CBC AND DIFF (AUTO) EOSINOPHILS [#/VOLUME] IN BLOOD BY AUTOMATED COUNT 0.24 10*3/u L 0.03 - 0.44 11/25 Specimen Type: BLOOD No comment entered. Ordering Provider: NIKITA KIRBY Report Released Date/Time: Nov 25, 2024 01:28 PM Reporting Lab: [facility] [place] [address] [address] Performing Lab: [facility] [place] [address] [address] [facility] [place] [facility] CBC AND DIFF (AUTO) BASOPHILS [#/VOLUME] IN BLOOD BY AUTOMATED COUNT 0.05 10*3/u L 0.01 - 0.13 11/25 Specimen Type: BLOOD No comment entered. Ordering Provider: NIKITA KIRBY Report Released Date/Time: Nov 25, 2024 01:28 PM Reporting Lab: [facility] [place] [address] [address] Performing Lab: [facility] [place] [address] [address] [facility] [place] [facility] CBC AND DIFF (AUTO) IMMATURE GRANULOCYTE S/100 LEUKOCYTES IN BLOOD BY AUTOMATED COUNT 0.2 0.0 - 0.7 11/25 Specimen Type: BLOOD No comment entered. Ordering Provider: NIKITA KIRBY Report Released Date/Time: Nov 25, 2024 01:28 PM Reporting Lab: [facility] [place] [address] [address] Performing Lab: [facility] [place] [facility] [address] [facility] [address] [facility] [place] [facility] CBC AND DIFF (AUTO) IMMATURE GRANULOCYTE S [#/VOLUME] IN BLOOD BY AUTOMATED COUNT 0.01 10*3/u L 0.00 - 0.06 11/25 Specimen Type: BLOOD No comment entered. Ordering Provider: NIKITA KIRBY Report Released Date/Time: Nov 25, 2024 01:28 PM Reporting Lab: [facility] [place] [facility] [address] [facility] [address] Performing Lab: [facility]PITALRLAKELAND COMMUNITY HOSPITALTRN [facility]USE[address] [address] [facility] CBC AND DIFF (AUTO) NUCLEATED ERYTHROCYTE S/100 LEUKOCYTES [RATIO] IN BLOOD BY AUTOMATED COUNT 0.0 0.0 - 0.0 11/25 Specimen Type: BLOOD No comment entered. Ordering Provider: NIIKTA KIRBY Report Released Date/Time: Nov 25, 2024 01:28 PM Reporting Lab: [facility]PITALRLAKELAND COMM[facility]OSPITALTRN [facility]AREUSETS [address] [address] Performing Lab: [facility]ITALRLAKELAND COMM[facility] HOSPITALTRN [facility]AREUSETS [address] [address] [facility] CBC AND DIFF (AUTO) NUCLEATED ERYTHROCYTE S [#/VOLUME] IN BLOOD BY AUTOMATED COUNT 0.00 10*3/u L 0.00 - 0.00 11/25 Specimen Type: BLOOD No comment entered. Ordering Provider: NIKITA KIRBY Report Released Date/Time: Nov 25, 2024 01:28 PM Reporting Lab: [facility]PITALRLAKELAND COMM[facility] HOSPITALTRN [facility]AREUSETS [address] [address] Performing Lab: [facility]PITALRLAKELAND COMMUN[facility] HOSPITALTRN [facility]USE[address] [address] [facility] PSA PROSTATE SPECIFIC AG [MASS/VOLUM E] IN SERUM OR PLASMA 0.70 ng/mL 0.00 - 4.00 09/24 Specimen Type: SERUM No comment entered. Ordering Provider: NIKITA KIRBY Report Released Date/Time: Sep 22, 2023 10:42 AM Reporting Lab: [facility] [place] [facility] [address] [facility] [address] Performing Lab: [facility] [place] [facility] [address] [facility] [address] [facility] [place] [facility] LIPID PANEL, NON FASTING CHOLESTEROL [MASS/VOLUM E] IN SERUM OR PLASMA 135 mg/dL 09/24 Specimen Type: SERUM No comment entered. Ordering Provider: NIKITA KIRBY Report Released Date/Time: Sep 22, 2023 10:42 AM Reporting Lab: [facility] [place] [facility] [address] [facility] [address] Performing Lab: [facility] [place] [facility] [address] [facility] [address] [facility] [place] [facility] LIPID PANEL, NON FASTING TRIGLYCERID E [MASS/VOLUM E] IN SERUM OR PLASMA 104 mg/dL 0 - 150 09/24 Specimen Type: SERUM No comment entered. Ordering Provider: NIKITA KIRBY Report Released Date/Time: Sep 22, 2023 10:42 AM Reporting Lab: [facility] [place] [facility] [address] [facility] [address] Performing Lab: [facility] [place] [facility] [address] [facility] [address] [facility] [facility] LIPID PANEL, NON FASTING CHOLESTEROL IN LDL [MASS/VOLUM E] IN SERUM OR PLASMA BY CALCULATION 63 mg/dL 0 - 129 09/24 Specimen Type: SERUM No comment entered. Ordering Provider: NIKITA KIRBY Report Released Date/Time: Sep 22, 2023 10:42 AM Reporting Lab: [facility] [place] [facility] [address] [facility] [address] Performing Lab: [facility] [place] [facility] [address] [facility] [address] [facility] [place] [facility] LIPID PANEL, NON FASTING CHOLESTEROL .TOTAL/CHOL ESTEROL IN HDL [MASS RATIO] IN SERUM OR PLASMA 2.6 09/24 Specimen Type: SERUM No comment entered. Ordering Provider: NIKITA KIRBY Report Released Date/Time: Sep 22, 2023 10:42 AM Reporting Lab: [facility] [place] [facility] [address] [facility] [address] Performing Lab: [facility]ARE[facility]ETS [facility] [address] [facility] [address] [facility]OSPITALRL WSTRN [facility] HOSPITALCHUSE [facility] LIPID PANEL, NON FASTING CHOLESTEROL IN HDL [MASS/VOLUM E] IN SERUM OR PLASMA 51 mg/dL 40 - 60 09/24 Specimen Type: SERUM No comment entered. Ordering Provider: NIKITA KIRBY Report Released Date/Time: Sep 22, 2023 10:42 AM Reporting Lab: [facility]OSPITALRL TRN [facility]CAREUSE[address] [address] Performing Lab: [facility]OS[facility]ITALRL TRN [facility]CAREUSETS [facility] [address] [facility] [address] [facility]ITALRL TRN [facility]AREUSE [facility] LIVER FUNCTION PROTEIN [MASS/VOLUM E] IN SERUM OR PLASMA 6.5 g/dL 6.0 - 8.3 09/24 Specimen Type: SERUM No comment entered. Ordering Provider: NIKITA KIRBY Report Released Date/Time: Sep 22, 2023 10:42 AM Reporting Lab: [facility]ITALRL TRN [facility]CAREUSETS [address] [address] Performing Lab: [facility] [facility]AREUSETS [facility] [address] [facility] [address] [facility]OSPITALRL TRN [facility] HOSPITALCHUSE [facility] LIVER FUNCTION ALBUMIN [MASS/VOLUM E] IN SERUM OR PLASMA 3.8 g/dL 3.5 - 5.0 09/24 Specimen Type: SERUM No comment entered. Ordering Provider: NIKITA KIRBY Report Released Date/Time: Sep 22, 2023 10:42 AM Reporting Lab: [facility]ITALRL [facility]N [place] [facility] [address] [facility] [address] Performing Lab: [place] [facility] [facility]AREUSETS [address] [address] [facility] [place] [facility] LIVER FUNCTION ALKALINE PHOSPHATASE [ENZYMATIC ACTIVITY/VO LUME] IN SERUM OR PLASMA 98 U/L 40 - 150 09/24 Specimen Type: SERUM No comment entered. Ordering Provider: NIKITA KIRBY Report Released Date/Time: Sep 22, 2023 10:42 AM Reporting Lab: [facility] [place] [facility] [address] [facility] [address] Performing Lab: [facility] [place] [facility] [address] [facility] [address] [place] [facility] [facility] LIVER FUNCTION ASPARTATE AMINOTRANSF ERASE [ENZYMATIC ACTIVITY/VO LUME] IN SERUM OR PLASMA 27 U/L 5 - 34 09/24 Specimen Type: SERUM No comment entered. Ordering Provider: NIKITA KIRBY Report Released Date/Time: Sep 22, 2023 10:42 AM Reporting Lab: [facility] [place] [address] [address] Performing Lab: [facility] [place] [facility] [address] [facility] [address] [place] [facility] [place] [facility] LIVER FUNCTION ALANINE AMINOTRANSF ERASE [ENZYMATIC ACTIVITY/VO LUME] IN SERUM OR PLASMA 38 U/L 09/24 Specimen Type: SERUM No comment entered. Ordering Provider: NIKITA KIRBY Report Released Date/Time: Sep 22, 2023 10:42 AM Reporting Lab: [facility] [place] [address] [address] Performing Lab: [facility] [place] [address] [address] [facility] [place] [facility] LIVER FUNCTION BILIRUBIN.T OTAL [MASS/VOLUM E] IN SERUM OR PLASMA 0.9 mg/dL 0.2 - 1.2 09/24 Specimen Type: SERUM No comment entered. Ordering Provider: NIKITA KIRBY Report Released Date/Time: Sep 22, 2023 10:42 AM Reporting Lab: [facility] [place] [facility] [address] [facility] [address] Performing Lab: [facility]ITALRL [place]N [place] [facility] [address] [facility] [address] [facility]RL WSTRN [place] [facility] BASIC METABOLIC PANEL (non-fast ing) UREA NITROGEN [MASS/VOLUM E] IN SERUM OR PLASMA 14 mg/dL 7 - 25 09/24 Specimen Type: SERUM No comment entered. Ordering Provider: NIKITA KIRBY Report Released Date/Time: Sep 22, 2023 10:42 AM Reporting Lab: [facility]PITALRL [facility]N [facility] [address] [facility] [address] Performing Lab: [facility]OSPITALR WSTRN [facility]AREUSEWO[facility] [address] [facility] [address] [facility]OSPITALRLAKELAND COMMUNITY HOSPITALTRN [facility]CAREUSE [facility] BASIC METABOLIC PANEL (non-fast ing) GLUCOSE [MASS/VOLUM E] IN SERUM OR PLASMA 67 mg/dL 65 - 100 09/24 Specimen Type: SERUM No comment entered. Ordering Provider: NIKITA KIRBY Report Released Date/Time: Sep 22, 2023 10:42 AM Reporting Lab: [facility]OSPITALRLAKELAND COMMUNITY HOSPITALTRN [facility]AREUSEWO[facility] [address] [facility] [address] Performing Lab: [facility]OS[facility]ITALRL WSTRN [facility]USE[facility] [address] [facility] [address] [facility]OSPITALRLAKELAND COMMUNITY HOSPITALTRN [facility]CAREUSE [facility] BASIC METABOLIC PANEL (non-fast ing) SODIUM [MOLES/VOLU ME] IN SERUM OR PLASMA 139 mmol/L 135 - 145 09/24 Specimen Type: SERUM No comment entered. Ordering Provider: NIKITA KIRBY Report Released Date/Time: Sep 22, 2023 10:42 AM Reporting Lab: [facility]PITALRL [facility] [place] [facility] [address] [facility] [address] Performing Lab: [facility]OSPITALRL WSTRN [facility]CAREUSETS [facility] [address] [facility] [address] [facility]ITALRLAKELAND COMMUNITY HOSPITALTRN [facility]AREUSE [facility] BASIC METABOLIC PANEL (non-fast ing) POTASSIUM [MOLES/VOLU ME] IN SERUM OR PLASMA 4.4 mmol/L 3.5 - 5.0 09/24 Specimen Type: SERUM No comment entered. Ordering Provider: NIKITA KIRBY Report Released Date/Time: Sep 22, 2023 10:42 AM Reporting Lab: [facility] HOSPITALRLAKELAND COMMUNITY HOSPITALTRN [address] [address] Performing Lab: [facility] [address] [address] [facility] BASIC METABOLIC PANEL (non-fast ing) CHLORIDE [MOLES/VOLU ME] IN SERUM OR PLASMA 104 mmol/L 100 - 110 09/24 Specimen Type: SERUM No comment entered. Ordering Provider: NIKITA KIRBY Report Released Date/Time: Sep 22, 2023 10:42 AM Reporting Lab: [facility] HOSPITALRFLOWERS HOSPITALN [address] [address] Performing Lab: [facility] HOSPITALRFLOWERS HOSPITALN [address] [address] [facility] BASIC METABOLIC PANEL (non-fast ing) CARBON DIOXIDE, TOTAL [MOLES/VOLU ME] IN SERUM OR PLASMA 29 meq/L 20 - 30 09/24 Specimen Type: SERUM No comment entered. Ordering Provider: NIKITA KIRBY Report Released Date/Time: Sep 22, 2023 10:42 AM Reporting Lab: [facility] HOSPITALRFLOWERS HOSPITALN [address] [address] Performing Lab: [facility]OSPITALRLAKELAND COMMUNITY HOSPITALTRN [facility]CAREUSE[address] [address] [facility]OSPITALRFLOWERS HOSPITALN [facility] BASIC METABOLIC PANEL (non-fast ing) CREATININE [MASS/VOLUM E] IN SERUM OR PLASMA 1.19 mg/dL 0.50 - 1.40 09/24 Specimen Type: SERUM No comment entered. Ordering Provider: NIKITA KIRBY Report Released Date/Time: Sep 22, 2023 10:42 AM Reporting Lab: [facility] HOSPITALRFLOWERS HOSPITALN [address] [address] Performing Lab: [facility] HOSPITALRL WSTRN [address] [place] [address] [place] [facility] [facility] BASIC METABOLIC PANEL (non-fast ing) GLOMERULAR FILTRATION RATE/1.73 SQ M.PREDICTED [VOLUME RATE/AREA] IN SERUM, PLASMA OR BLOOD BY CREATININE- BASED FORMULA (CKD-EPI 2020) 66 mL/min 60 09/24 Specimen Type: SERUM No comment entered. Ordering Provider: NIKITA KIRBY Report Released Date/Time: Sep 22, 2023 10:42 AM Reporting Lab: [facility]ITALR [place] [place] [facility] [address] [facility] [address] Performing Lab: [place] [facility] [facility] [address] [facility] [address] [place] [facility] [facility] Vital Signs Combined list of inpatient and outpatient Vital Signs from Department of Defense and Veterans Affairs, ranging from 12 months to all on record, depending upon the facility. Vital Sign Value Date Comments Source SYSTOLIC BLOOD PRESSURE 145 11/27/19 25 09:36:28 [place] [facility] [place] [facility] DIASTOLIC BLOOD PRESSURE 80 025 09:36:28 [place] [facility] [place] [facility] PULSE OXIMETRY 98 11/26/2024 09:36:28 [place] [facility] [place] [facility] WEIGHT 181 11/26/2024 09:36:28 [place] [facility] [place] [facility] BMI 25 kg/m2 11/26/2024 09:36:28 [place] [facility] [place] [facility] PULSE 66 11/26/2024 09:36:28 [place] [facility] [place] [facility] RESPIRATION 18 11/26/2024 09:36:28 [place] [facility] [facility] Encounters Combined list of: 1) Encounters from Department of Veterans Affairs facilities going backup to the last 18 months, not all VA inpatient encounters are included; 2) Encounters from the Department of Defense facilities going backup to 280 months. 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 NIKITA FUENTES 09/26 [facility] [place] [facility] [place] [facility] OFFICE O/P NEW SF 15 MIN [id number] Diagnos is: ICD-10- CM L60.3 Nail dystrop hy Chas BANKS 10/03 [facility] [place] [place] [facility] TARGETED CASE MANAGEMENT [id number] BEV ROJAS 10/21 [facility] [place] [facility] Outpatient Encounter [id number] 11/08 [facility] [place] [place] En[facility] [id number] 02/04 [facility] [place] [place] Encounter [id number] IRAIS WHARTON 03/03 [facility] [place] [facility] [place] En[facility] [id number] 05/27 [facility] [place] [facility] [place] En[facility] [id number] IRAIS WHARTON H 06/09 [facility] [place] [facility] [place] [facility] FIT SPECTACLES MONOFOCAL [id number] Diagnos is: ICD-10- CM Z46.0 Encount er for fit/adj st of spectac les and contact lenses CORY DAVILA 06/23 [facility] [place] [place] [facility] Outpatient Encounter [id number] 09/22 [facility] Outpatient Encounter [id number] 09/25 [facility] Outpatient Encounter [id number] 09/25 [facility] OFFICE O/P EST LOW 20 MIN [id number] Diagnos is: ICD-10- CM 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 AMTILDA SANTOS 09/25 [facility] [place] [facility] Outpatient Encounter [id number] 11/25 [facility] [place] [place] [facility] [place] [facility] Outpatient [facility]counter [id number] 11/26 [facility] [place] [facility] [place] [facility] OFFICE O/P EST MOD 30 MIN [id number] Diagnos is: ICD-10- CM 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 NIKITA FUENTES 11/26 [facility] [place] [place] [facility] [place] [facility] Outpatient [facility]counter [id number] 11/27 [facility] [place] [facility] [place] [facility] Outpatient Encounter [id number] 01/09 [facility] [place] [place] [facility] Social History Combined list of available smoking, tobacco, and other social history from Department of Defense and Veterans Affairs facilities. Social History Type Response Date Comment Source Tobacco smoking status [facility] VA-TOBACCO NEVER USED CIGARETTES 09/25/2024 [facility] History of tobacco use VA-TOBACCO NEVER USED OTHER TYPE 09/25/2024 [facility] History of tobacco use VA-TOBACCO NEVER USED 11/23/2022 [facility] [place] [facility] History of tobacco use VA-TOBACCO NEVER USED 10/13/2022 [facility] History of tobacco use VA-TOBACCO NEVER USED 03/03/2021 [place] [facility] History of tobacco use VA-TOBACCO NEVER USED 03/01/2020 [place] [facility] History of tobacco use FL-TOBACCO NEVER USED 12/09/2018 [facility] [place] [facility] History of tobacco use LIFETIME NON-TOBACCO USER 09/17/2017 [facility] [place] [facility] History of tobacco use LIFETIME NON-TOBACCO USER 08/08/2016 [facility] [place] [facility] History of tobacco use LIFETIME NON-TOBACCO USER 08/16/2015 [facility] [place] [facility] History of tobacco use LIFETIME NON-TOBACCO USER 03/07/2012 [facility] [place] [facility] History of tobacco use CURRENT SMOKER 01/24/2011 Pt states smokes marijuana cig one a week [facility] [place] [place] [facility] Plan of Care List of future care activities from Department of Veterans Affairs facilities. Additional future care activities may be listed in the Assessment and Plan section. Date/Time Care Activity Care Activity Detail Facili ty 07/21/2025 AMBULATORY - NONE [facility] NONE [facility]
--- OUTSIDE RECORDS SUMMARY | 2025-04-02 09:38 | XMS_ITS | Clinical Summary ---
Author Organization [facility] Address [address] [facility] [facility] [address] [place] [phone] Phone Care Team Providers Care Chief Risk Officer Name Role Phone Katy Han MD Primary Care Provider +1- [phone] Allergies Active Allergy Reactions Criticality Noted Date [...] topic Medical Devices Not on file Insurance [employer] CROSS MEDEX SUPPLEMENT MEDICARE PART A & B [facility] BLUE [employer]OSS MEDEX SUPPLEMENT MEDICARE PART A & B [facility] [employer] MEDEX SUPPLEMENT MEDICARE PART A & B [facility] MEDEX SUPPLEMENT MEDICARE PART A & B [facility] [employer] MEDEX SUPPLEMENT MEDICARE PART A & B [facility] [employer] MEDEX SUPPLEMENT MEDICARE PART A & B [facility] Care Teams Chief Risk Officer Relationship Specialty Start Date End Date Katy Han MD [address] [place] [address] PCP - General 06/14/17 Additional Source Comments The information contained in this document represents components of the legal health record. It is not the complete legal health record.[facility]
[2025-04-05 16:28] LABS: TS Negative Control Passed; TS Panel A 0; TS Panel B 0; TS Positive Control Passed; TSpotTB Negative (Negative)
== END 2025-04-02 09:15 | disposition home or self-care (01) ==
LOC: HO.LAB 09:14
PROVIDERS: PCP Internal Medicine; Visit Provider Internal Medicine
DX: Z00.00 Encounter for general adult medical examination without abnormal findings (principal); Z11.1 Encounter for screening for respiratory tuberculosis; F41.9 Anxiety disorder, unspecified
CPT/HCPCS: 36415; 84403; 86481

== ENCOUNTER 2025-04-21 09:42 | Outpatient (AMB) | payer MEDICARE, SELFPAY ==
--- OUTSIDE RECORDS SUMMARY | 2024-02-05 03:30 | XMS_ITS ---
Author Organization [facility] Address [address] [place] [address] Care Team Providers Care Child And Family Counselor Name Role Phone Ziggy Dey MD Primary Care Provider Deandre Gant Jr REASON FOR VISIT screening colon Problems Problem Type SNOMED Code ICD Code Onset Dates Problem Status W/U Status Risk Notes Problem Personal history of colonic polyps (Z86.010) Active confirmed Encounters Encounter Location Date Provider Diagnosis [facility] Outpatient [address] [place] [phone] 02/05/2024 Deandre Ga Jr Encounter for screening colonoscopy Z12.11 and Personal history of colonic polyps Z86.010 Assessments Encounter Date Diagnosis (ICD Code) Assessment Notes Treatment Notes Treatment Clinical Notes Section Notes 02/05/2024 Encounter for screening colonoscopy (ICD-10 - Z12.11) 02/05/2024 Personal history of colonic polyps (ICD-10 - Z86.010) Plan Of Treatment No Information Progress Notes * PRESLEY MILLSOB:1955 (69 yo M)Acc No.[id number]:02/05/2024 COLON WITH MAC Patient: ROXANNE INGRAM Provider: Alyssa Ga MD :1955 A ge:68 Y S ex:Male Date:02/05/2024 Address:[address] [place] [address] [id number] Pcp:Ziggy Dey MD Subjective: * Chief Complaints: [...] 02/05/2024 Generated for Betzaida piper/Ryan/Lashaitting on: 0 04/21/2025 10:21 AM EDT
--- OUTSIDE RECORDS SUMMARY | 2024-06-23 08:40 | XMS_ITS | Encounter Summary ---
Author Name [facility] Address [address] [place] [address] Care Team Providers Care Raised Printer Name Role Phone NIKITA HARRIS Primary Care Provider Unav ailable Insurance Providers: All historical and current Section Date Range: From patient's date of to the date document was created. This section includes the names of all active insurance providers for the patient. Insurance Provider Type of Coverage Plan Name Start of Policy Coverage End of Policy Coverage Group Number Member ID Insurance Provider's Telephone Number Policy Georges's Name Patient's Relationship to Policy Georges [place] MED[place]ARE SUPPLEMEN TIFFANY [employer] RETIR EMENT Aug 27, 2019 [id number] MILLS,PE ARP[place] PATIENT [place] MED[place]ARE SUPPLEMEN TIFFANY MEDEX Aug 27, 2019 [id number] MILLS,[place] PATIENT [place] MED[place] SUPPLEMEN [place] MEDEX 2 Aug 27, 2019 [id number] [phone] MILLS,[place] PATIENT [place] SUPPLEMEN [place]ANY COH RETIR EMENT Aug 27, 2019 [id number] MILLS,PE ARP[place] PATIENT [employer] [facility] [id number] MILLS,PE ARP[place] PATIENT MEDICARE (WNR) MEDICARE (M) PART A Aug 27, 2019 PART A [id number] [phone] MILLS,PE ARP[place] PATIENT MEDICARE (WNR) MEDICARE (M) PART B Aug 27, 2019 PART B [id number] MILLSPE ARPITA PATIENT MEDICARE (WNR) MEDICARE (M) PART A Aug 27, 2019 PART A [id number] MILLSPE ARPITA PATIENT MEDICARE (WNR) MEDICARE (M) PART B Aug 27, 2019 PART B [id number] MILLSPE ARPITA PATIENT MEDICARE (WNR) MEDICARE (M) PART A Aug 27, 2019 PART A [id number] [phone] MILLS,PE ARPITA PATIENT MEDICARE (WNR) MEDICARE (M) PART B Aug 27, 2019 PART B [id number] [phone] SAMUEL MILLS PATIENT Selected Encounter This section includes the information on record at [place] for the Encounter. Date/Time Encounter Type Encounter Description Reason Provider Source Jun 23, 2024 12:40 PM FIT SPECTACLES MONOFOCAL OPTOMETRY ICD-10-CM Z46.0 Encounter for fit/adjst of spectacles and contact lenses YOLI DAVILA [facility] Encounter Template Text not used by [place] Assessments - Encounter Diagnoses This section includes the primary and secondary diagnoses documented for the Encounter. Date/Time Primary/Secondary Diagnosis Diagnosis Name Provider Source Jun 23, 2024 12:56 PM PRIMARY Encounter for fit/adjst of spectacles and contact lenses YOLI DAVILA [place] [facility] [place] [facility] Plan of Treatment: Future Appointments (+ 6 months) and Future Tests (+/- 45 days) The Plan of Treatment section includes future care activities for the patient from all [place] treatmentfacilities. This section includes future appointments and future orders which are active, pending or scheduled. Future Appointments This section includes appointments that were scheduled to occur 6 months from the date of the Encounter, up to a maximum of 20 appointments. The data comes from all [place] treatment facilities. Appointment Date/Time Appointment Type Appointme nt Facility Name Sep 25, 2024 08:00 AM AMBULATORY - NONE [facility] Nov 26, 2024 09:30 AM AMBULATORY - MEDICINE [facility] [place] [facility] Active, Pending, and Scheduled Orders This section includes a listing of several types of active, pending, and scheduled orders, including clinic medications orders, diagnostic test orders, procedure orders and consult orders; where the start date of the order is 45 days before the date of the Encounter or 45 days after the date of theEncounter. The data comes from all [place] treatment facilities. Test Date/Time Test Type Test Details Facility Name May 22, 2024 12:00 AM Laboratory - Chemistry Order CBC BLOOD (LAVENDER-BLOOD) [facility] May 22, 2024 12:00 AM Laboratory - Chemistry Order DIFF COUNT (BLOOD) BLOOD (LAVENDER-BLOOD) [facility] May 22, 2024 12:00 AM Laboratory - Chemistry Order BASIC METABOLIC PANEL BLOOD (LIGHT-GREEN PST) PLASMA [facility] May 22, 2024 12:00 AM Laboratory - Chemistry Order LIPID PROFILE BLOOD (LIGHT-GREEN PST) PLASMA [facility] May 22, 2024 12:00 AM Laboratory - Chemistry Order HEPATIC FUNCTION PANEL BLOOD (LIGHT-GREEN PST) PLASMA [facility] May 22, 2024 12:00 AM Laboratory - Chemistry Order THYROID PROFILE BLOOD (LIGHT-GREEN PST) PLASMA [facility] May 22, 2024 12:00 AM Laboratory - Chemistry Order PSA, FREE & TOT BLOOD (GOLD-SST) SERUM [facility] May 22, 2024 12:00 AM Laboratory - Chemistry Order HEMOGLOBIN A1C BLOOD (LAVENDER-BLOOD) [facility] May 22, 2024 12:00 AM Laboratory - Chemistry Order URINALYSIS URINE (RANDOM) [facility] May 22, 2024 12:00 AM Laboratory - Chemistry Order Vitamin B-12 BLOOD (LIGHT-GREEN PST) PLASMA [facility] May 22, 2024 12:00 AM Laboratory - Chemistry Order FOLATE SERUM/PLASMA BLOOD (LIGHT-GREEN PST) PLASMA [facility] May 22, 2024 12:00 AM Laboratory - Chemistry Order VITAMIN D, 25-OH, TOTAL BLOOD (GOLD-SST) SERUM [facility] Jun 17, 2024 12:00 AM Laboratory - Chemistry Order OCCULT BLOOD FIT X1 SCREEN (MFP ONLY) STOOL FECES SP [place] [facility] [place] [facility] Social History: Smoking Status (Most current) and Tobacco Use (All prior to encounter date) This section includes the most current, and the historical, smoking and tobacco- related health factors from the [place] facility where the Encounter took place. Current Smoking Status This section includes the most current smoking, or tobacco-related health factor, from the [place] facility where the Encounter took place. Date/Time Current Smoking Status Comment [facility] Nov 23, 2022 08:30 AM VA-TOBACCO NEVER USED [place] [facility] [place] [facility] Tobacco Use History This section includes a history of the smoking, or tobacco-related health factors, that were collected on or before the date of the Encounter. The data comes from the [place] facility where the Encounter took place. Date/Time Smoking Status/Tobac co Use Comment Facility Mar 03, 2021 09:30 AM VA-TOBACCO NEVER USED [place] [facility] [place] [facility] Mar 01, 2020 01:02 PM VA-TOBACCO NEVER USED [facility] [place] [facility] Dec 09, 2018 09:46 AM VA-TOBACCO NEVER USED [facility] [place] [facility] Sep 17, 2017 10:07 AM LIFETIME NON-TOBACCO USER [facility] [place] [facility] Aug 08, 2016 09:22 AM LIFETIME NON-TOBACCO USER [place] [facility] [place] [facility] Aug 16, 2015 08:33 AM LIFETIME NON-TOBACCO USER [facility] [place] [facility] Mar 07, 2012 09:32 AM LIFETIME NON-TOBACCO USER [facility] [place] [facility] January 24, 2011 10:55 AM CURRENT SMOKER Pt states smokes marijuana cig one a week [facility] [place] [facility] January 24, 2011 10:55 AM QUIT TOBACCO USE > 7 YEARS AGO actually never used tobacco [facility] [place] [facility] Encounter Notes: All associated encounter notes This section contains the clinical notes associated to the Encounter. Date/Time Encounter Note(s) Provider Source Jun 23, 2024 12:48 PM OPTOMETRY NOTE: LOCAL TITLE: OPTOMETRY NOTE STANDARD TITLE: OPTOMETRY NOTE DATE OF NOTE: JUN 23, 2024@12:48 ENTRY DATE: JUN 23, 2024@12:48:14 AUTHOR: YOLI DAVILA EXP COSIGNER: URGENCY: STATUS: COMPLETED Patient came in today with outside RX: [facility] eye [id number] [place] [id number] Exam date:06/05/2024 Exp Date:06/05/2026 OD:+0.25 -0.50 105 OS:-0.75 ADD:+2.25 PD:64 DVO Sun: MODERN TEACH BLACK FADE [id number] Brown tint #3 DVO clear: FX 10 GUNMETAL [id number] /es/ YOLI GRAVES [facility] Signed: 06/23/2024 12:56 YOLI DAVILA [place] [facility]
--- OUTSIDE RECORDS SUMMARY | 2024-11-26 05:30 | XMS_ITS | Encounter Summary ---
Author Name [facility] Organization [facility] Address [address] [place] [address] Care Team Providers Care Handbell Choir Director Name Role Phone NIKITA HARRIS Primary Care [...] Georges's Name Patient's Relationship to Policy Georges ANTHDANIEL [place] MEDICARE SUPPLEMEN TIFFANY COH RETIR EMENT Aug 27, 2019 [id number] [phone] MILLS,[place] PATIENT [place] SUPPLEMEN TI[place] MEDEX Aug 27, 2019 [id number] [place]S,[place] 2 Aug 27, 2019 [id number] MILLS,[place] PAT[place] SUPPLEMEN [place] COH RETIR EMENT Aug 27, 2019 [id number] [phone] MILLS,PE ARPITA PATIENT C[facility]NA [facility] [place] [facility] [id number] [phone] MILLS,PE ARP[place] PATIENT MEDICARE (WNR) MEDICARE (M) PART B Aug 27, 2019 PART B [id number] [phone] MILLS,PE ARPITA PATIENT MEDICARE (WNR) MEDICARE (M) PART A Aug 27, 2019 PART A [id number] MILLSPE ARPITA PATIENT MEDICARE (WNR) MEDICARE (M) PART A Aug 27, 2019 PART A [id number] MILLSPE ARPITA PATIENT MEDICARE (WNR) MEDICARE (M) PART B Aug 27, 2019 PART B [id number] MILLSPE ARPITA PATIENT MEDICARE (WNR) MEDICARE (M) PART A Aug 27, 2019 PART A [id number] [phone] MILLSPE ARPITA PATIENT MEDICARE (WNR) MEDICARE (M) PART B Aug 27, 2019 PART B [id number] MILLS,PE ARPITA PATIENT Selected Encounter This section includes the information on record at [place] for the Encounter. Date/Time Encounter Type Encounter Description Reason Provider Source Nov 26, 2024 09:30 AM OFFICE O/P EST MOD 30 MIN PRIMARY CARE/MEDICINE ICD-10-CM I25.10 Athscl heart disease of [place] coronary artery w/o fermin pctJena Cintron Encounter Template Text not used by [place] Assessments - Encounter Diagnoses This section includes the primary and secondary diagnoses documented for the Encounter. Date/Time Primary/Secondary Diagnosis Diagnosis Name Provider Source Nov 26, 2024 04:05 PM PRIMARY Athscl heart disease of [place] coronary artery w/o ang pctNIKITA Cintron [place] [facility] [place] [facility] Nov 26, 2024 04:05 PM SECONDARY Essential (primary) hypertension NIKITA HARRIS [place] [facility] [place] [facility] Nov 26, 2024 04:05 PM SECONDARY Mixed hyperlipidemia NIKITA HARRIS [facility] [place] [facility] Nov 26, 2024 04:05 PM SECONDARY Prediabetes NIKITA HARRIS [facility] Lab Results: +/- 30 days of the encounter This section includes the Chemistry and Hematology Lab Results on record with [place] for the patient. Radiology Reports and Pathology Reports are provided separately, in subsequent sections. Lab Results This section contains the Chemistry/Hematology Results that were resulted 30 days before or 30 daysafter the date of the Encounter. Date/Time Source Result Type Result - Unit Interpretation Reference Range Specimen Type Comment Nov 25, 2024 02:57 PM [facility] TSH SERUM Specimen Type: SERUM No comment entered. Ordering Provider: RACHEL HARRIS Report Released Date/Time: Nov 25, 2024 01:28 PM Reporting Lab: [address] [address] Performing Lab: [address] [address] TSH 0.66 u[IU]/mL 0.35-5.00 Nov 25, 2024 02:57 PM [facility] PSA SERUM Specimen Type: SERUM No comment entered. Ordering Provider: NIKITA HARRIS Report Released Date/Time: Nov 25, 2024 01:28 PM Reporting Lab: [address] [address] Performing Lab: [address] [address] PSA 0.40 ng/mL 0.00-4.00 Nov 25, 2024 02:57 PM [facility] HEMOGLOBIN A1C PANEL BLOOD Specimen Type: BLO OD Comment: Values obtained from A1C measurements can vary. For atypical A1C assays, a reported value of 7.0 could actually be between 6.72 and 7.28 if measured by a reference method. A reported value of 9.0 could actually be between 8.73 and 9.27. Ref: http://www.ngsp.org/[email or web address] Ordering Provider: NIKITA HARRIS Report Released Date/Time: Nov 25, 2024 01:28 PM Reporting Lab: [address] [address] Performing Lab: [facility] [address] [facility] [address] HEMOGLOBIN A1C 5.7 H 4.0-5.6 Nov 25, 2024 02:57 PM [facility] BASIC METABOLIC PANEL (non-fasting) SERUM Spe cimen Type: SERUM No comment entered. Ordering Provider: NIKITA HARRIS Report Released Date/Time: Nov 25, 2024 01:28 PM Reporting Lab: [facility] [address] [facility] [address] Performing Lab: [address] [address] UREA NITROGEN 16 mg/dL 7-25 GLUCOSE 100 mg/dL 65-100 SODIUM 136 mmol/L 135-145 POTASSIUM 4.4 mmol/L 3.5-5.0 CHLORIDE 103 mmol/L 100-110 CO2 27 meq/L 20-30 CALCIUM 9.3 mg/dL 8.5-10.2 CREATININE, Serum 1.10 mg/dL 0.50-1.40 eGFR(CKD-EPI 2020) 72 mL/min >60 Nov 25, 2024 02:57 PM [facility] LIVER FUNCTION SERUM Specimen Type: SERUM No comment entered. Ordering Provider: NIKITA HARRIS Report Released Date/Time: Nov 25, 2024 01:28 PM Reporting Lab: [address] [address] Performing Lab: [address] [address] PROTEIN,TOTAL 6.7 g/dL 6.0-8.3 ALBUMIN 4.0 g/dL 3.5-5.0 ALKALINE PHOSPHATASE 86 U/L 40-150 AST 24 U/L 5-34 ALT 30 U/L BILIRUBIN, TOTAL 1.2 mg/dL 0.2-1.2 BILIRUBIN, DIRECT 0.4 mg/dL 0-0.5 Nov 25, 2024 02:57 PM [facility] CBC AND DIFF (AUTO) BLOOD Specimen Type: BLOO D No comment entered. Ordering Provider: NIKITA HARRIS Report Released Date/Time: Nov 25, 2024 01:28 PM Reporting Lab: [facility] [address] [facility] [address] Performing Lab: [facility] [address] [facility] [address] WBC 4.54 10*3/uL 4.50-11.00 RBC 4.35 10*6/uL 4.23-5.66 HGB 14.4 g/dL 12.8-17 HCT 41.1 39.2-50.4 MCV 94.5 fL 82-99 MCHC 35.0 g/dL 30.8-35.1 PLT 165 10*3/uL 140-360 MPV 9.2 fL 9.2-12.4 RDW-CV 11.7 L 12.0-16.0 MONO, ABS 0.46 10*3/uL 0.30-1.10 MCH 33.1 pg H 26.2-32.6 NEUT % 36.2 L 43.7-75.8 LYMPH % 47.1 H 14.0-42.3 MONO % 10.1 5.1-13.7 EOS % 5.3 0.4-6.8 BASO % 1.1 0.1-2.0 NEUT, ABS 1.64 10*3/uL L 2.20-7.60 LYMPH, ABS 2.14 10*3/uL 1.00-3.20 EOS, ABS 0.24 10*3/uL 0.03-0.44 BASO, ABS 0.05 10*3/uL 0.01-0.13 IMMATURE GRAN % 0.2 0.0-0.7 IMMATURE GRAN, ABS 0.01 10*3/uL 0.00-0.0 6 NRBC % 0.0 0.0-0.0 NRBC, ABS 0.00 10*3/uL 0.00-0.00 Vital Signs: All taken on the encounter date This section contains inpatient and outpatient Vital Signs collected on the date of the Encounter. Date/Time Temperature Pulse Blood Pressure Respiratory Rate SP02 Pain Height Weight Body Mass Index Source Nov 26, 2024 09:36 AM 66 145/80 18 98 181 25 [facility] [place] Social History: Smoking Status (Most current) and [...] took place. Date/Time Current Smoking Status Comment [facility] Nov 23, 2022 08:30 AM VA-TOBACCO NEVER USED [facility] Tobacco Use History This section includes a history of the smoking, or tobacco-related health factors, that were collected on or before the date of the Encounter. The data comes from the [place] facility where the Encounter took place. Date/Time Smoking Status/Tobac co Use Comment Facility Mar 03, 2021 09:30 AM VA-TOBACCO NEVER USED [place] [facility] [place] [facility] Mar 01, 2020 01:02 PM VA-TOBACCO NEVER USED [facility] [place] [facility] Dec 09, 2018 09:46 AM VA-TOBACCO NEVER USED [facility] [place] [facility] Sep 17, 2017 10:07 AM LIFETIME NON-TOBACCO USER [facility] [place] [facility] Aug 08, 2016 09:22 AM LIFETIME NON-TOBACCO USER [facility] [place] [facility] Aug 16, 2015 08:33 AM LIFETIME NON-TOBACCO USER [facility] [place] [facility] Mar 07, 2012 09:32 AM LIFETIME NON-TOBACCO USER [facility] [place] [facility] January 24, 2011 10:55 AM CURRENT SMOKER Pt states smokes marijuana cig one a week [facility] [place] [facility] January 24, 2011 10:55 AM QUIT TOBACCO USE > 7 YEARS AGO actually never used tobacco [facility] Encounter Notes: All associated encounter notes This section contains the clinical notes associated to the Encounter. Date/Time Encounter Note(s) Provider Source Nov 26, 2024 09:40 AM PREVENTIVE MEDICINE NURSING NOTE: LOCAL TITLE: CLINICAL REMINDERS/NURSING STANDARD TITLE: PREVENTIVE MEDICINE NURSING NOTE DATE OF NOTE: NOV 26, 2024@09:40 ENTRY DATE: NOV 26, 2024@09:40:39 AUTHOR: PICH,KENDAL A EXP COSIGNER: URGENCY: STATUS: COMPLETED CLINICAL REMINDERS/NURSING Has ADDENDA Suicide Screen: C-SSRS Screening [place] Suicide Severity Rating Scale (C-SSRS) screener 1. Over the past month, have you wished you were or wished you could go to sleep and not wake up? No 2. Over the past month, have you had any actual thoughts of killing yourself? No 3. Over the past month, have you been thinking about how you might do this? Response not required due to responses to other questions. 4. Over the past month, have you had these thoughts and had some intention of acting on them? Response not required due to responses to other questions. 5. Over the past month, have you started to work out or worked out the details of how to kill yourself? Response not required due to responses to other questions. 6. If yes, at any time in the past month did you intend to carry out this plan? Response not required due to responses to other questions. 7. In your lifetime, have you ever done anything, started to do anything, or prepared to do anything to end your life (for example, collected pills, obtained a gun, gave away valuables, went to the roof but didn't jump)? No 8. If YES, was this within the past 3 months? Response not required due to responses to other questions. Homelessness/Food Insecurity Screen: In the past 2 months, have you been living in stable housing that you own, rent, or stay in as part of a household? Yes - Living in stable housing. Are you worried or concerned that in the next 2 months you may NOT have stable housing that you own, rent, or stay in as part of a household? No - Not worried about housing near future The reports the following: Within the past 12 months, you worried whether your food would run out before you got money to buy more. Never true Within the past 12 months, the food you bought just didn't last and you didn't have money to get more. Never true Depression Screening: Perform PHQ-2 A PHQ-2 screen was performed. The score was 0 which is a negative screen for depression. Over the past two weeks, how often have you been bothered by the following problems? 1. Little interest or pleasure in doing things Not at all 2. Feeling down, depressed, or hopeless Not at all Influenza Immunization: The patient has received the seasonal influenza vaccine for the current season at another location. Documented: INFLUENZA, UNSPECIFIED FORMULATION Historical Date Administered: May 2024 Exact date unknown Outside Location: Outside Healthcare Provider Information Source: SOURCE UNSPECIFIED Alcohol Use Screen (AUDIT-C): Alcohol Screen: SCREEN FOR ALCOHOL (AUDIT-C) An alcohol screening test (AUDIT-C) was negative (score=0). 1. How often did you have a drink containing alcohol in the past year? Consider a drink to be a 12 ounce can or bottle of regular beer, 8 ounces of malt liquor, a 5 ounce glass of table wine, or a 1.5 ounce shot of liquor (like scotch, gin, or vodka). Never 2. How many drinks containing alcohol did you have on a typical day when you were drinking in the past year? Response not required due to responses to other questions. 3. How often did you have six or more drinks on one occasion in the past year? Response not required due to responses to other questions. Td/Tdap Immunization: Prior Td vaccination The patient was vaccinated in the past and written documentation of vaccination is available. The patient has previously received the Tetanus, Diphtheria vaccine (Td). Documented: TD(ADULT) UNSPECIFIED FORMULATION Historical Date Administered: Mar 07, 2021 Outside Location: Outside Healthcare Provider Information Source: SOURCE UNSPECIFIED /magalis CRESPO Primary Care Staff Nurse Signed: 11/26/2024 09:46 11/26/2024 ADDENDUM STATUS: COMPLETED Follow Up Colonoscopy: Colonoscopy is due based on information available to this reminder. Prior/outside Colonoscopy results: Normal [facility] repeat 10years Date: February 05, 2024 Colonoscopy reminder set 9 years from NOV 26, 2024. /magalis Garcia [facility] Primary Care Staff Nurse Signed: 11/26/2024 09:47 [facility] Nov 26, 2024 08:23 AM PHYSICIAN NOTE: LOCAL TITLE: MD NOTE STANDARD TITLE: PHYSICIAN NOTE DATE OF NOTE: NOV 26, 2024@08:23 ENTRY DATE: NOV 26, 2024@08:23:46 AUTHOR: ERIN HARRIS EXP COSIGNER: URGENCY: STATUS: COMPLETED HISTORY OF PRESENT ILLNESS: = ROXANNE MILLS, is a 69 yo DECLINED TO ANSWER MALE [place] who presents at the [facility]. CAD and other problems HPI. vet returns to PCP appt for f/u of his medical concerns: 1. CAD, no angina, he has excellent lifestyle plan with exercise, maintains healthy weight. no dyspnea 2. HTN, stable on metoprolol 3. elev chol. controlled w/ statin, no mylagia 4. prediabetes. stable A1c SH nonsmoker Active problems - Computerized Problem List is the source for the followin. Colonic polyp 2. Toenail thickened 3. Essential hypertension 4. Prediabetes 5. History of male erectile disorder 6. Coronary artery disease (SNOMED CT 94062030) 7. Hyperlipidemia (SNOMED CT [id number]) 8. Angina Pectoris HISTORY: PERIOD OF SERVICE - [place] FROM Feb TO Nov COMBAT SERVICE INDICATED: No SERVICE CONNECTED % - 100 VITAL SIGNS: Temperature 98.3 F [36.8 C] (12/09/2021 12:49) Blood Pressure 128/77 (09/26/2023 09:02) Pulse 73 (09/26/2023 09:02) Respiration 19 (09/26/2023 09:02) Pain 0 (11/23/2022 08:19) BMI BMI: 24.1 Weight 177 lb [80.29 kg] (11/23/2022 08:19) Pulse Oximetry 100% (09/26/2023 09:02) Review of Systems: GASTROINTESTINAL: No abd pain, no N/V/D, no change in stool GENITOURINARY: No dysuria, no hematuria MUSCULOSKELETAL: No joint pain, no joint swelling PSYCHIATRIC: No anxiety, no trouble sleeping, no depression NEUROLOGIC: No H/A, no numbness, no weakness, no tingling EXAMINATION General: Well-appearing gentleman in no obvious distress. Mental Status: Alert and oriented x 3 Head: Normocephalic. Lungs: CTA. no crackles, no wheezing CV: RRR. No murmur Psych: Normal mood and affect. Normal judgment. DATA REVIEW >> MEDICATIONS Reviewed Today (VA & Non VA) ALLERGIES: Patient has answered NKA Active Outpatient Medications (including Supplies): Issue Date Status Last Fill Active Outpatient Medications Refills Expiration === 1) NITROGLYCERIN 0.4MG SL TAB Qty: 100 for 90 ACTIVE Issue: 03/04/24 days Sig: DISSOLVE ONE TABLET UNDER THE Refills: 0 Last : 06/13/24 TONGUE EVERY 5 MINUTES NEEDED IF NO Expr : 03/05/25 RELIEF AFTER 3 DOSES, CALL 911 OR GO TO NEAREST EMERGENCY ROOM Indication: FOR ACUTE CHEST PAIN Start Date Active Non-VA Medications Status Stop Date === 1) Non-VA ASPIRIN 81MG EC TAB SiMG BY ACTIVE MOUTH DAILY 2) Non-VA METOPROLOL SUCCINATE 50MG SA TAB Sig: ACTIVE 50MG BY MOUTH ONCE DAILY 3 Total Medications >> LABS REVIEWED TODAY: CHEM 7 TREND LAB CUMULATIVE SELECTED Collection DT Spec GLUCOSE BUN CREATIN Sodium K+/Pot CL CO2 11/25/2024 14:57 SERUM 100 16 1.10 136 4.4 103 27 09/24/2023 11:37 SERUM 67 14 1.19 139 4.4 104 29 02/21/2021 09:34 SERUM 100 12 1.02 140 4.3 106 26 08/17/2020 09:25 SERUM 103 H 15 1.20 138 4.3 104 29 12/09/2018 09:06 SERUM 99 15 1.04 138 4.3 104 28 LAB CUMULATIVE SELECTED 2 No selection items chosen for this component. CHEM 7 Results Collection DT Spec Sodium K+/Pot CL CO2 GLUCOSE BUN 11/25/2024 14:57 SERUM 136 4.4 103 27 100 16 09/24/2023 11:37 SERUM 139 4.4 104 29 67 14 02/21/2021 09:34 SERUM 140 4.3 106 26 100 12 08/17/2020 09:25 SERUM 138 4.3 104 29 103 H 15 12/09/2018 09:06 SERUM 138 4.3 104 28 99 15 2017 10:09 SERUM 140 4.5 103 32 H 108 H 14 07/31/2016 10:20 SERUM 140 4.4 105 31 H 98 13 05/17/2016 08:14 SERUM 140 4.2 106 29 96 15 07/26/2015 08:28 SERUM 140 4.3 105 28 106 H 15 04/24/2014 14:49 SERUM 140 4.5 104 29 91 14 10/21/2012 09:27 SERUM 140 4.4 105 28 105 H 15 08/30/2011 09:39 SERUM 138 4.5 104 28 99 17 01/24/2011 12:42 SERUM 138 4.3 102 31 H 95 15 === CBC TREND Collection DT Spec WBC RBC HGB HCT MCV MCH PLT 11/25/2024 14:57 BLOOD 4.54 4.35 14.4 41.1 94.5 33.1 H 165 09/24/2023 11:37 BLOOD 4.09 L 4.54 14.9 43.4 95.6 32.8 H 171 02/21/2021 09:34 BLOOD 3.92 L 4.34 14.2 41.9 96.5 32.7 H 185 08/17/2020 09:25 BLOOD 4.12 L 4.57 15.0 44.5 97.4 32.8 H 176 12/09/2018 09:06 BLOOD 4.46 L 4.57 15.0 43.6 95.4 32.8 H 176 === HEMOGLOBIN A1C TREND Collection DT Spec HGBA1c 11/25/2024 14:57 BLOOD 5.7 H 09/24/2023 11:37 BLOOD 5.7 H 08/17/2020 09:25 BLOOD 5.6 12/09/2018 09:06 BLOOD 6.0 H 2017 10:09 BLOOD 5.8 H === LIPID PANEL TREND Collection DT Spec CHOL HDL CHO/HDL LDL-c TRIG 09/24/2023 11:37 SERUM 135 51 2.6 63 104 02/21/2021 09:34 SERUM 139 56 2.5 72 55 08/17/2020 09:25 SERUM 156 70 H 2.2 77 47 12/09/2018 09:06 SERUM 147 48 3.1 83 81 2017 10:09 SERUM 135 55 2.5 71 45 === UREA NITROGEN 11/25/24 14:57 16 CREATININE-EGFR 4/1/25 14:57 1.10 === LIVER PANEL TREND Collection DT Spec AST ALT T BILI ALK ZEKE T. PROT ALBUMIN 11/25/2024 14:57 SERUM 24 30 1.2 86 6.7 4.0 09/24/2023 11:37 SERUM 27 38 0.9 98 6.5 3.8 02/21/2021 09:34 SERUM 22 31 1.0 90 6.2 3.5 08/17/2020 09:25 SERUM 23 31 1.1 95 6.7 3.9 12/09/2018 09:06 SERUM 25 33 1.6 H 89 6.9 3.8 === PSA TREND Collection DT Spec PSA SR- 09/24/2023 11:37 SERUM 0.70 08/24/2020 09:30 SERUM 0.56 = TSH - NONE FOUND == ANEMIA PANEL TREND Collection DT Spec HCT Ferrit 11/25/2024 14:57 BLOOD 41.1 09/24/2023 11:37 BLOOD 43.4 09/24/2023 11:37 SERUM 88 02/21/2021 09:34 BLOOD 41.9 08/17/2020 09:25 BLOOD 44.5 === PT INR TREND No data available === >> HEALTH MAINTENANCE PREVENTIVE MEDICINE GOALS Advance Directive Screen MH AD May 26 Suicide Screen Nov 23 Toxic Exposure Screening DUE NOW Homelessness/Food Insecurity Screen Nov 23 Follow Up Colonoscopy Dec 10 Depression Screening Nov 23 Influenza Immunization DUE NOW Medication Reconciliation DUE NOW Td/Tdap Immunization Aug 27 Alcohol Use Screen (AUDIT-C) Nov 23 COVID-19 Immunization DUE NOW Herpes Zoster (Shingles) Vaccine DUE NOW RSV Immunization DUE NOW RHS Screen DUE NOW Eye Care At-Risk Screen DUE NOW (Optional) Whole Health Documentation DUE NOW ASSESSMENT/PLAN: 1. CAD 2. HTN 3. elev chol 4. prediabetes Plan 1. continue ASA 81/vet obtains on his own 2. continue SLNTG for rare episodes of angina 3. he will continue yearly cardiac f/u w/ [facility] in [place] 4. refill metoprolol 50 /vet was obtaining it thru [facility] 5. continue statin 6. reassured vet that he has NO change in A1c 7. f/u in one yr for CAD, and PRN LAB ORDERS FOR NEXT APPT. spent in patient care and education No barriers; Patient understands and agrees to current treatment plan. If pt has any questions, concerns, or changes in current health status he/she will call or [facility] Medication Reconciliation: Outpatient: Has the patient been taking medications as documented in the EMLR? YES: The patient has been taking medications as documented in the EMLR. Essential Medication List for Review used to complete this medication reconciliation. INCLUDED IN THIS LIST: Alphabetical list of active outpatient prescriptions dispensed from this SD (local) and dispensed from another [place] or [facility] facility (remote) as well as inpatient orders (local, pending and active), local clinic medications, locally documented non-VA medications, and local prescriptions that have or been discontinued in the past 90 days. - All changes in medications, including all non-VA/Herbal/OTC medications were entered into CPRS. - If there were any medications the patient should no longer take, they were discontinued. - The patient/caregiver was instructed to update this list, discard old lists, and take this list to the next appointment, whether with a VA or non-VA provider. /eloisa/ NIKITA HARRIS MD PHYSICIAN Signed: 11/26/2024 16:05 ERIN HARRIS [facility]
--- OUTSIDE RECORDS SUMMARY | 2025-04-21 05:15 | XMS_ITS | Continuity of Care Document ---
Author Name [facility] Organization [facility] Care Team Providers Care Quality Assurance Intern Name Role Phone [facility] Unavailable Unavailable Problems Combined list of problems [...] [facility] Coronary artery disease Active Condition [facility] Coronary artery disease (SNOMED CT 51573304) Active Condition January 24, 2011 Entered By: JAZMINE SPANN Comment: -- cardiac cath 01/03 70% LAD, 100% CFX marginal, 40% RCASep 26, 2023 Entered By: NIKITA HARRIS Comment: Inferior hypokinesis consistent with prior IMI// vet sees Dr Avni Momin cardio [facility] Essential hypertension Active Condition [facility] Exposure to Potentially Hazardous Substance (SCT 213200228257648) Active Condition [facility] History of male erectile disorder Active Condition [facility] Hyperlipidemia (SNOMED CT 93169604) Active Condition [facility] Mixed hyperlipidemia Active Condition [facility] Prediabetes Active Condition [facility] Toenail thickened Active [facility] Vitamin D deficiency Active Condition [facility] Right Inguinal Hernia (ICD-9-CM 550.90) Inactive Condition 05/28/2014 [facility] Diagnosis: ICD-10-CM I25.10 Athscl heart disease of [place] coronary artery w/o ang pctrs Active Diagnosis [facility] Diagnosis: ICD-10-CM Z46.0 Encounter for fit/adjst of spectacles and contact lenses Active Diagnosis [facility] Medications Combined list of outpatient medications [...] PREVENT A HEART ATTACK ORAL ACTIVE 09/26/2025 [id number] SANTOS,THY HEAD 2024 120 [facility] ASPIRIN 81MG TAB,EC TAKE ONE TABLET BY MOUTH DAILY ORAL ACTIVE ANGIE SPANN 2010 [facility] ASPIRIN 81MG TAB,EC TAKE ONE TABLET BY MOUTH ONCE DAILY ORAL ACTIVE KENDAL FOSTER 2012 [facility] ATORVASTATI N [place] 80MG TAB TAKE ONE-HALF TABLET BY MOUTH ONCE DAILY FOR CHOLESTE ROL ORAL ACTIVE 11/27/2025 [id number] 5 CHICO JOHNSON 2024 45 [facility] ATORVASTATI N CA 80MG TAB TAKE ONE TABLET BY MOUTH AT BEDTIME FOR HIGH CHOLESTE ROL AND TRIGLYCE RIDES ORAL ACTIVE 09/26/2025 [id number] SANTOS,THY HEAD 2024 90 [facility] ATORVASTATI N CA 80MG TAB TAKE ONE-HALF TABLET BY MOUTH ONCE DAILY FOR CHOLESTE ROL ORAL DISCONT INUED 09/26/2024 [id number] CHICO JOHNSON 2023 45 [facility] ATORVASTATI N CA 80MG TAB TAKE ONE TABLET BY MOUTH AT BEDTIME FOR HIGH CHOLESTE ROL AND TRIGLYCE RIDES ORAL 06/07/2024 [id number] SANTOS,THY HEAD 2022 90 [facility] CHOLECALCIF JENNA 25MCG (1,000UNIT) TAB TAKE TWO TABLETS BY MOUTH DAILY TO PREVENT VITAMIN DEFICIEN CY ORAL ACTIVE 09/26/2025 [id number] 5 SANTOS,THY HEAD 2024 200 [facility] CHOLECALCIF JENNA 25MCG (1,000UNIT) TAB TAKE ONE TABLET BY MOUTH ONCE DAILY FOR VITAMIN SUPPLEME NTATION ORAL ACTIVE 11/27/2025 [id number] 5 Chas'CHICO STANFORD 2024 90 [facility] CHOLECALCIF JENNA 25MCG (1,000UNIT) TAB TAKE ONE TABLET BY MOUTH ONCE DAILY FOR VITAMIN SUPPLEME NTATION ORAL DISCONT INUED 09/26/2024 [id number] CHICO JOHNSON 2023 90 [place] [facility] CHOLECALCIF JENNA 25MCG (1,000UNIT) TAB TAKE TWO TABLETS BY MOUTH DAILY TO PREVENT VITAMIN DEFICIEN CY ORAL 06/07/2024 [id number] SANTOS,THY HEAD 2022 180 [facility] METOPROLOL SUCCINATE 100MG TAB,SA TAKE ONE-HALF TABLET BY MOUTH DAILY FOR HIGH BLOOD PRESSURE (ONE TIME REFILL EXTENSIO N) ORAL ACTIVE 09/26/2025 [id number] SANTOS,THY HEAD 2024 45 [facility] METOPROLOL SUCCINATE 100MG TAB,SA TAKE ONE-HALF TABLET BY MOUTH DAILY FOR HIGH BLOOD PRESSURE (ONE TIME REFILL EXTENSIO N) ORAL 09/14/2024 [id number] SANTOS,THY HEAD 2023 15 [facility] METOPROLOL SUCCINATE 100MG TAB,SA TAKE ONE-HALF TABLET BY MOUTH DAILY FOR HIGH BLOOD PRESSURE ORAL 06/07/2024 [id number] SANTOS,THY HEAD 2022 45 [facility] METOPROLOL SUCCINATE 50MG TAB,SA TAKE ONE TABLET BY MOUTH ONCE DAILY FOR BLOOD PRESSURE /HEART ORAL ACTIVE 11/27/2025 [id number] 5 CHICO JOHNSON 2024 90 [facility] METOPROLOL SUCCINATE 50MG TAB,SA TAKE ONE TABLET BY MOUTH ONCE DAILY ORAL ACTIVE Robin WARD 2021 [facility] NITROGLYCER IN 0.4MG TAB,SUBLING UAL DISSOLVE ONE TABLET UNDER THE TONGUE EVERY 5 MINUTES NEEDED FOR ACUTE CHEST PAIN IF NO RELIEF AFTER 3 DOSES, CALL 911 OR GO TO NEAREST EMERGENC Y ROOM SUBLIN GUAL ACTIVE 11/27/2025 [id number] 5 CHICO JOHNSON 2024 100 [facility] NITROGLYCER IN 0.4MG TAB,SUBLING UAL DISSOLVE ONE TABLET UNDER THE TONGUE EVERY 5 MINUTES NEEDED FOR ACUTE CHEST PAIN IF NO RELIEF AFTER 3 DOSES, CALL 911 OR GO TO NEAREST EMERGENC Y ROOM SUBLIN GUAL DISCONT INUED 03/05/2025 [id number] CHICO JOHNSON 2023 100 [facility] Allergies, Adverse Reactions, Alerts Combined list of allergies from Department of Defense and Veterans Affairs facilities. It does not include entries that were removed or entered in error. Substance Category Reaction Severity Reaction type Status Date Reported Comments Source [place] Propensity to adverse reactions to food (finding) Eruption active 7 [facility] [place] Propensity to adverse reactions to food (finding) Eruption active 3 [facility] Immunizations Combined list of available immunizations from the Department of Defense and Veterans Affairs facilities. Immunization Series Date Given Administered By Site Reaction Lot Number CVX Code Drug Silver Wrapper Status Comments Source INFLUENZA, UNSPECIFIED FORMULATION 2023 88 complet ed HISTORICA L INFORMATI ON - SOURCE UNSPECIFI ED, [facility] PNEUMOCOCCAL CONJUGATE PCV20, POLYSACCHARID E [id number] CONJUGATE, ADJUVANT, PF 2023 PICH,KENDAL SIMEON DELTO ID [id number] 216 complet ed [place], [facility] COVID-19 (MODERNA), MRNA, LNP-S, PF, 50 MCG/0.5 ML (AGES 12+ YEARS) 1 2022 312 complet ed HISTORICA L INFORMATI ON - SOURCE UNSPECIFI ED, [facility] INFLUENZA, UNSPECIFIED FORMULATION 2022 88 complet ed HISTORICA L INFORMATI ON - SOURCE UNSPECIFI ED, [facility] INFLUENZA, UNSPECIFIED FORMULATION 2021 88 complet ed HISTORICA L INFORMATI ON - SOURCE UNSPECIFI ED, [facility] ZOSTER LIVE 2020 121 complet ed HISTORICA L INFORMATI ON - SOURCE UNSPECIFI ED, [facility] PNEUMOCOCCAL POLYSACCHARID E PPV23 2020 33 complet ed HISTORICA L INFORMATI ON - SOURCE UNSPECIFI ED, [facility] TD(ADULT) UNSPECIFIED FORMULATION 2020 139 complet ed HISTORICA L INFORMATI ON - SOURCE UNSPECIFI ED, [facility] COVID-19 (PFIZER), MRNA, LNP-S, PF, 30 MCG/0.3 ML DOSE 2 2020 208 complet ed [facility] COVID-19 (PFIZER), MRNA, LNP-S, PF, 30 MCG/0.3 ML DOSE 1 2020 208 complet ed [place] INFLUENZA, UNSPECIFIED FORMULATION 2019 88 complet ed [facility] INFLUENZA, SEASONAL, INJECTABLE 2018 141 complet ed [facility] INFLUENZA, INJECTABLE, QUADRIVALENT 2017 158 complet ed [facility] INFLUENZA, SEASONAL, INJECTABLE 2017 141 complet ed in [place] [facility] INFLUENZA, [...] Nov 25, 2024 01:28 PM Reporting Lab: [place] [facility] [place] [facility] [address] [facility] [address] Performing Lab: [place] [facility] [place] [facility] [address] [facility] [address] [place] [facility] [place] [facility] PSA PROSTATE SPECIFIC AG [MASS/VOLUM E] IN SERUM OR PLASMA BY IMMUNOASSAY 0.40 ng/mL 0.00 - 4.00 11/25 Specimen Type: SERUM No comment entered. Ordering Provider: NIKITA KIRBY Report Released Date/Time: Nov 25, 2024 01:28 PM Reporting Lab: [address] [address] Performing Lab: [address] [address] [facility] HEMOGLOBI N A1C PANEL HEMOGLOBIN A1C/HEMOGLO BIN.TOTAL [...] Nov 25, 2024 01:28 PM Reporting Lab: [address] [address] Performing Lab: [address] [address] [facility] LIVER FUNCTION PROTEIN [MASS/VOLUM E] IN SERUM OR PLASMA 6.7 g/dL 6.0 - 8.3 11/25 Specimen Type: SERUM No comment entered. Ordering Provider: NIKITA KIRBY Report Released Date/Time: Nov 25, 2024 01:28 PM Reporting Lab: [address] [address] Performing Lab: [address] [address] [facility] LIVER FUNCTION ALBUMIN [MASS/VOLUM E] IN SERUM OR PLASMA BY BROMOCRESOL PURPLE (BCP) DYE BINDING METHOD 4.0 g/dL 3.5 - 5.0 11/25 Specimen Type: SERUM No comment entered. Ordering Provider: NIKITA KIRBY Report Released Date/Time: Nov 25, 2024 01:28 PM Reporting Lab: [place] [facility] [place] [address] [address] Performing Lab: [place] [facility] [address] [place] [address] [facility] [address] LIVER FUNCTION ALKALINE PHOSPHATASE [ENZYMATIC ACTIVITY/VO LUME] IN SERUM OR PLASMA 86 U/L 40 - 150 11/25 Specimen Type: SERUM No comment entered. Ordering Provider: NIKITA KIRBY Report Released Date/Time: Nov 25, 2024 01:28 PM Reporting Lab: [place] [facility] [address] Performing Lab: [place] [facility] [address] [facility] LIVER FUNCTION ASPARTATE AMINOTRANSF ERASE [ENZYMATIC ACTIVITY/VO LUME] IN SERUM OR PLASMA BY WITH P-5'-P 24 U/L 5 - 34 11/25 Specimen Type: SERUM No comment entered. Ordering Provider: NIKITA KIRBY Report Released Date/Time: Nov 25, 2024 01:28 PM Reporting Lab: [place] [facility] [address] [address] Performing Lab: [place] [facility] [address] [address] [place] [facility] LIVER FUNCTION ALANINE AMINOTRANSF ERASE [ENZYMATIC ACTIVITY/VO LUME] IN SERUM OR PLASMA BY WITH P-5'-P 30 U/L 11/25 Specimen Type: SERUM No comment entered. Ordering Provider: NIKITA KIRBY Report Released Date/Time: Nov 25, 2024 01:28 PM Reporting Lab: [place] [facility] [address] Performing Lab: [place] [facility] [place] [facility] [address] [facility] [address] [facility] LIVER FUNCTION BILIRUBIN.T OTAL [MASS/VOLUM E] IN SERUM OR PLASMA 1.2 mg/dL 0.2 - 1.2 11/25 Specimen Type: SERUM No comment entered. Ordering Provider: NIKITA KIRBY Report Released Date/Time: Nov 25, 2024 01:28 PM Reporting Lab: [place] [facility] [place] [facility] [address] [facility] [address] Performing Lab: [place] [facility] [address] [facility] [address] [facility] LIVER FUNCTION BILIRUBIN.D IRECT [MASS/VOLUM E] IN SERUM OR PLASMA 0.4 mg/dL 0 - 0.5 11/25 Specimen Type: SERUM No comment entered. Ordering Provider: NIKITA KIRBY Report Released Date/Time: Nov 25, 2024 01:28 PM Reporting Lab: [place] [facility] [address] [facility] [address] Performing Lab: [place] [facility] [address] [facility] [address] [facility]N [facility] BASIC METABOLIC PANEL (non-fast ing) UREA NITROGEN [MASS/VOLUM E] IN SERUM OR PLASMA 16 mg/dL 7 - 25 11/25 Specimen Type: SERUM No comment entered. Ordering Provider: NIKITA KIRBY Report Released Date/Time: Nov 25, 2024 01:28 PM Reporting Lab: [place] [facility] [place] [facility] [address] [facility] [address] Performing Lab: [place] [facility] [address] [address] [facility]N [facility] BASIC METABOLIC PANEL (non-fast ing) GLUCOSE [MASS/VOLUM E] IN SERUM OR PLASMA 100 mg/dL 65 - 100 11/25 Specimen Type: SERUM No comment entered. Ordering Provider: NIKITA KIRBY Report Released Date/Time: Nov 25, 2024 01:28 PM Reporting Lab: [place] [facility] [place] [facility] [address] [facility] [address] Performing Lab: [facility] [place] [facility] [address] [facility] [address] [facility] [place] [facility] BASIC METABOLIC PANEL (non-fast ing) SODIUM [MOLES/VOLU ME] IN SERUM OR PLASMA 136 mmol/L 135 - 145 11/25 Specimen Type: SERUM No comment entered. Ordering Provider: NIKITA KIRBY Report Released Date/Time: Nov 25, 2024 01:28 PM Reporting Lab: [place] [facility] [place] [facility] [address] [facility] [address] Performing Lab: [place] [facility] [place] [facility] [address] [facility] [address] [place] [facility] [place] [facility] BASIC METABOLIC PANEL (non-fast ing) POTASSIUM [MOLES/VOLU ME] IN SERUM OR PLASMA 4.4 mmol/L 3.5 - 5.0 11/25 Specimen Type: SERUM No comment entered. Ordering Provider: NIKITA KIRBY Report Released Date/Time: Nov 25, 2024 01:28 PM Reporting Lab: [place] [facility] [place] [facility] [address] [facility] [address] Performing Lab: [place] [facility] [place] [address] [address] [place] [facility] [place] [facility] BASIC METABOLIC PANEL (non-fast ing) CHLORIDE [MOLES/VOLU ME] IN SERUM OR PLASMA 103 mmol/L 100 - 110 11/25 Specimen Type: SERUM No comment entered. Ordering Provider: NIKITA KIRBY Report Released Date/Time: Nov 25, 2024 01:28 PM Reporting Lab: [facility] [place] [facility] [address] [facility] [address] Performing Lab: [place] [facility] [place] [address] [address] [place] [facility] [place] [facility] BASIC METABOLIC PANEL (non-fast ing) CARBON DIOXIDE, TOTAL [MOLES/VOLU ME] IN SERUM OR PLASMA 27 meq/L 20 - 30 11/25 Specimen Type: SERUM No comment entered. Ordering Provider: NIKITA KIRBY Report Released Date/Time: Nov 25, 2024 01:28 PM Reporting Lab: [address] [address] Performing Lab: [address] [address] [facility] BASIC METABOLIC PANEL (non-fast ing) CALCIUM [MASS/VOLUM E] IN SERUM OR PLASMA 9.3 mg/dL 8.5 - 10.2 11/25 Specimen Type: SERUM No comment entered. Ordering Provider: NIKITA KIRBY Report Released Date/Time: Nov 25, 2024 01:28 PM Reporting Lab: [address] [address] Performing Lab: [address] [address] [facility] BASIC METABOLIC PANEL (non-fast ing) CREATININE [MASS/VOLUM E] IN SERUM OR PLASMA 1.10 mg/dL 0.50 - 1.40 11/25 Specimen Type: SERUM No comment entered. Ordering Provider: NIKITA KIRBY Report Released Date/Time: Nov 25, 2024 01:28 PM Reporting Lab: [address] [address] Performing Lab: [address] [address] [facility] BASIC METABOLIC PANEL (non-fast ing) GLOMERULAR FILTRATION RATE/1.73 SQ M.PREDICTED [VOLUME RATE/AREA] IN SERUM, PLASMA OR BLOOD BY CREATININE- BASED FORMULA (CKD-EPI 2020) 72 mL/min 60 11/25 Specimen Type: SERUM No comment entered. Ordering Provider: NIKITA KIRBY Report Released Date/Time: Nov 25, 2024 01:28 PM Reporting Lab: [facility] [place] [facility] [address] [facility] [address] Performing Lab: [facility] [place] [facility] [address] [facility] [address] [facility] [place] CBC AND DIFF (AUTO) LEUKOCYTES [#/VOLUME] IN BLOOD BY AUTOMATED COUNT 4.54 10*3/u L 4.50 - 11.00 11/25 Specimen Type: BLOOD No comment entered. Ordering Provider: NIKITA KIRBY Report Released Date/Time: Nov 25, 2024 01:28 PM Reporting Lab: [facility] [place] [facility] [address] [facility] [address] Performing Lab: [facility] [place] [facility] [address] [facility] [address] [facility] CBC AND DIFF (AUTO) ERYTHROCYTE S [#/VOLUME] IN BLOOD BY AUTOMATED COUNT 4.35 10*6/u L 4.23 - 5.66 11/25 Specimen Type: BLOOD No comment entered. Ordering Provider: NIKITA KIRBY Report Released Date/Time: Nov 25, 2024 01:28 PM Reporting Lab: [facility] [place] [facility] [address] [facility] [address] Performing Lab: [facility] [place] [facility] [address] [facility] [address] [facility] CBC AND DIFF (AUTO) HEMOGLOBIN [MASS/VOLUM E] IN BLOOD 14.4 g/dL 12.8 - 17 11/25 Specimen Type: BLOOD No comment entered. Ordering Provider: NIKITA KIRBY Report Released Date/Time: Nov 25, 2024 01:28 PM Reporting Lab: [facility] [place] [facility] [address] [facility] [address] Performing Lab: [facility] [place] [address] [address] [facility] CBC AND DIFF (AUTO) HEMATOCRIT [VOLUME FRACTION] OF BLOOD BY AUTOMATED COUNT 41.1 39.2 - 50.4 11/25 Specimen Type: BLOOD No comment entered. Ordering Provider: NIKITA KIRBY Report Released Date/Time: Nov 25, 2024 01:28 PM Reporting Lab: [facility] [place] [address] [address] Performing Lab: [place] [facility] [place] [address] [address] [facility] [place] [facility] CBC AND DIFF (AUTO) MCV [ENTITIC VOLUME] BY AUTOMATED COUNT 94.5 fL 82 - 99 11/25 Specimen Type: BLOOD No comment entered. Ordering Provider: NIKITA KIRBY Report Released Date/Time: Nov 25, 2024 01:28 PM Reporting Lab: [facility] [place] [address] [address] Performing Lab: [facility] [place] [address] [address] [facility] [place] [facility] CBC AND DIFF (AUTO) MCHC [MASS/VOLUM E] BY AUTOMATED COUNT 35.0 g/dL 30.8 - 35.1 11/25 Specimen Type: BLOOD No comment entered. Ordering Provider: NIKITA KIRBY Report Released Date/Time: Nov 25, 2024 01:28 PM Reporting Lab: [facility] [place] [address] [address] Performing Lab: [place] [facility] [place] [address] [address] [facility] [place] [facility] CBC AND DIFF (AUTO) PLATELETS [#/VOLUME] IN BLOOD BY AUTOMATED COUNT 165 10*3/u L 140 - 360 11/25 Specimen Type: BLOOD No comment entered. Ordering Provider: NIKITA KIRBY Report Released Date/Time: Nov 25, 2024 01:28 PM Reporting Lab: [facility] [place] [address] [address] Performing Lab: [facility] [place] [facility] [address] [facility] [address] [facility] [place] [facility] CBC AND DIFF (AUTO) PLATELET MEAN VOLUME [ENTITIC VOLUME] IN BLOOD BY AUTOMATED COUNT 9.2 fL 9.2 - 12.4 11/25 Specimen Type: BLOOD No comment entered. Ordering Provider: NIKITA KIRBY Report Released Date/Time: Nov 25, 2024 01:28 PM Reporting Lab: [facility] [place] [facility] [address] [facility] [address] Performing Lab: [facility]OSPITALN [facility] [address] [facility] CBC AND DIFF (AUTO) ERYTHROCYTE DISTRIBUTIO N WIDTH [RATIO] BY AUTOMATED COUNT 11.7 12.0 - 16.0 11/25 L Specimen Type: BLOOD No comment entered. Ordering Provider: NIKITA KIRBY Report Released Date/Time: Nov 25, 2024 01:28 PM Reporting Lab: [facility] [address]SUSE[address] [address] Performing Lab: [facility] [address] [facility]USE [facility] CBC AND DIFF (AUTO) MONOCYTES [#/VOLUME] IN BLOOD BY AUTOMATED COUNT 0.46 10*3/u L 0.30 - 1.10 11/25 Specimen Type: BLOOD No comment entered. Ordering Provider: NIKITA KIRBY Report Released Date/Time: Nov 25, 2024 01:28 PM Reporting Lab: [facility] [place] [address] [address] Performing Lab: [facility]N [facility]ITAL[facility] [address] [address] [facility] [place] [facility] CBC AND DIFF (AUTO) MCH [ENTITIC MASS] BY AUTOMATED COUNT 33.1 pg 26.2 - 32.6 11/25 H Specimen Type: BLOOD No comment entered. Ordering Provider: NIKITA KIRBY Report Released Date/Time: Nov 25, 2024 01:28 PM Reporting Lab: [facility] [place] [address] [facility] [address] Performing Lab: [facility] [place] [address] [facility] [address] [facility] CBC AND DIFF (AUTO) NEUTROPHILS /100 LEUKOCYTES IN BLOOD BY AUTOMATED COUNT 36.2 43.7 - 75.8 11/25 L Specimen Type: BLOOD No comment entered. Ordering Provider: NIKITA KIRBY Report Released Date/Time: Nov 25, 2024 01:28 PM Reporting Lab: [facility] [address] [facility] [address] Performing Lab: [facility] [place] [address] [facility] [address] [facility] CBC AND DIFF (AUTO) LYMPHOCYTES /100 LEUKOCYTES IN BLOOD BY AUTOMATED COUNT 47.1 14.0 - 42.3 11/25 H Specimen Type: BLOOD No comment entered. Ordering Provider: NIKITA KIRBY Report Released Date/Time: Nov 25, 2024 01:28 PM Reporting Lab: [facility] [place] [address] [facility] [address] Performing Lab: [facility] [address] [place] [id number] [facility] CBC AND DIFF (AUTO) MONOCYTES/1 00 LEUKOCYTES IN BLOOD BY AUTOMATED COUNT 10.1 5.1 - 13.7 11/25 Specimen Type: BLOOD No comment entered. Ordering Provider: NIKITA KIRBY Report Released Date/Time: Nov 25, 2024 01:28 PM Reporting Lab: [facility] [place] [address] [facility] [address] Performing Lab: [facility] [place] [address] [facility] [address] [facility] CBC AND DIFF (AUTO) EOSINOPHILS /100 LEUKOCYTES IN BLOOD BY AUTOMATED COUNT 5.3 0.4 - 6.8 11/25 Specimen Type: BLOOD No comment entered. Ordering Provider: NIKITA KIRBY Report Released Date/Time: Nov 25, 2024 01:28 PM Reporting Lab: [facility] [place] [address] [address] Performing Lab: [facility] [place] [address] [address] [facility] CBC AND DIFF (AUTO) BASOPHILS/1 00 LEUKOCYTES IN BLOOD BY AUTOMATED COUNT 1.1 0.1 - 2.0 11/25 Specimen Type: BLOOD No comment entered. Ordering Provider: NIKITA KIRBY Report Released Date/Time: Nov 25, 2024 01:28 PM Reporting Lab: [facility] [place] [address] [address] Performing Lab: [facility] [place] [address] [address] [place] [facility] [facility] CBC AND DIFF (AUTO) NEUTROPHILS [#/VOLUME] IN BLOOD BY AUTOMATED COUNT 1.64 10*3/u L 2.20 - 7.60 11/25 L Specimen Type: BLOOD No comment entered. Ordering Provider: NIKITA KIRBY Report Released Date/Time: Nov 25, 2024 01:28 PM Reporting Lab: [place] [facility] [place] [address] [address] Performing Lab: [facility] [place] [address] [address] [place] [facility] CBC AND DIFF (AUTO) LYMPHOCYTES [#/VOLUME] IN BLOOD BY AUTOMATED COUNT 2.14 10*3/u L 1.00 - 3.20 11/25 Specimen Type: BLOOD No comment entered. Ordering Provider: NIKITA KIRBY Report Released Date/Time: Nov 25, 2024 01:28 PM Reporting Lab: [place] [facility] [address] [address] Performing Lab: [facility] [place] [facility] [address] [facility] [address] [place] [facility] CBC AND DIFF (AUTO) EOSINOPHILS [#/VOLUME] IN BLOOD BY AUTOMATED COUNT 0.24 10*3/u L 0.03 - 0.44 11/25 Specimen Type: BLOOD No comment entered. Ordering Provider: NIKITA KIRBY Report Released Date/Time: Nov 25, 2024 01:28 PM Reporting Lab: [place] [facility] [facility] [address] [facility] [address] Performing Lab: [place] [facility] [address] [facility] [address] [place] [facility] CBC AND DIFF (AUTO) BASOPHILS [#/VOLUME] IN BLOOD BY AUTOMATED COUNT 0.05 10*3/u L 0.01 - 0.13 11/25 Specimen Type: BLOOD No comment entered. Ordering Provider: NIKITA KIRBY Report Released Date/Time: Nov 25, 2024 01:28 PM Reporting Lab: [place] [facility] [address] [address] Performing Lab: [place] [facility] [facility] [address] [facility] [address] [facility] CBC AND DIFF (AUTO) IMMATURE GRANULOCYTE S/100 LEUKOCYTES IN BLOOD BY AUTOMATED COUNT 0.2 0.0 - 0.7 11/25 Specimen Type: BLOOD No comment entered. Ordering Provider: NIKITA KIRBY Report Released Date/Time: Nov 25, 2024 01:28 PM Reporting Lab: [place] [facility] [address] [address] Performing Lab: [place] [facility] [address] [address] [facility] [facility] CBC AND DIFF (AUTO) IMMATURE GRANULOCYTE S [#/VOLUME] IN BLOOD BY AUTOMATED COUNT 0.01 10*3/u L 0.00 - 0.06 11/25 Specimen Type: BLOOD No comment entered. Ordering Provider: NIKITA KIRBY Report Released Date/Time: Nov 25, 2024 01:28 PM Reporting Lab: [place] [facility] [address] [address] Performing Lab[place] [facility] [address] [address] [facility] [place] [facility] CBC AND DIFF (AUTO) NUCLEATED ERYTHROCYTE S/100 LEUKOCYTES [RATIO] IN BLOOD BY AUTOMATED COUNT 0.0 0.0 - 0.0 11/25 Specimen Type: BLOOD No comment entered. Ordering Provider: NIKITA KIRBY Report Released Date/Time: Nov 25, 2024 01:28 PM Reporting Lab: [place] [facility] [place] [address] [address] Performing Lab[place] [facility] [address] [address] [place] [facility] CBC AND DIFF (AUTO) NUCLEATED ERYTHROCYTE S [#/VOLUME] IN BLOOD BY AUTOMATED COUNT 0.00 10*3/u L 0.00 - 0.00 11/25 Specimen Type: BLOOD No comment entered. Ordering Provider: NIKITA KIRBY Report Released Date/Time: Nov 25, 2024 01:28 PM Reporting Lab: [place] [facility] [address] [address] Performing Lab: [place] [facility] [place] [address] [address] [place] [facility] PSA PROSTATE SPECIFIC AG [MASS/VOLUM E] IN SERUM OR PLASMA 0.70 ng/mL 0.00 - 4.00 09/24 Specimen Type: SERUM No comment entered. Ordering Provider: NIKITA KIRBY Report Released Date/Time: Sep 22, 2023 10:42 AM Reporting Lab: [place] [facility] [address] [address] Performing Lab: [place] [address] [address] [facility] LIPID PANEL, NON FASTING CHOLESTEROL [MASS/VOLUM E] IN SERUM OR PLASMA 135 mg/dL 09/24 Specimen Type: SERUM No comment entered. Ordering Provider: NIKITA KIRBY Report Released Date/Time: Sep 22, 2023 10:42 AM Reporting Lab: [facility] [address] [facility] [address] Performing Lab: [facility] [address] [facility] [address] [facility] LIPID PANEL, NON FASTING TRIGLYCERID E [MASS/VOLUM E] IN SERUM OR PLASMA 104 mg/dL 0 - 150 09/24 Specimen Type: SERUM No comment entered. Ordering Provider: NIKITA KIRBY Report Released Date/Time: Sep 22, 2023 10:42 AM Reporting Lab: [facility]ITALUSE[address] [address] Performing Lab: [facility]ITALUSE[address] [address] [facility] LIPID PANEL, NON FASTING CHOLESTEROL IN LDL [MASS/VOLUM E] IN SERUM OR PLASMA BY CALCULATION 63 mg/dL 0 - 129 09/24 Specimen Type: SERUM No comment entered. Ordering Provider: NIKITA KIRBY Report Released Date/Time: Sep 22, 2023 10:42 AM Reporting Lab: [facility] [address] [facility] [address] Performing Lab: [facility]ITALN [facility] [address] [facility] [address] [facility] LIPID PANEL, NON FASTING CHOLESTEROL .TOTAL/CHOL ESTEROL IN HDL [MASS RATIO] IN SERUM OR PLASMA 2.6 09/24 Specimen Type: SERUM No comment entered. Ordering Provider: NIKITA KIRBY Report Released Date/Time: Sep 22, 2023 10:42 AM Reporting Lab: [facility] [address] [facility] [address] Performing Lab: [facility] [place] [facility] [address] [facility] [address] [facility]ITAL[facility] LIPID PANEL, NON FASTING CHOLESTEROL IN HDL [MASS/VOLUM E] IN SERUM OR PLASMA 51 mg/dL 40 - 60 09/24 Specimen Type: SERUM No comment entered. Ordering Provider: NIKITA KIRBY Report Released Date/Time: Sep 22, 2023 10:42 AM Reporting Lab: [facility] [place] [facility] [address] [facility] [address] Performing Lab: [facility]ITALUSETS [facility] [address] [facility] [address] [facility] TRN [facility] LIVER FUNCTION PROTEIN [MASS/VOLUM E] IN SERUM OR PLASMA 6.5 g/dL 6.0 - 8.3 09/24 Specimen Type: SERUM No comment entered. Ordering Provider: NIKITA KIRBY Report Released Date/Time: Sep 22, 2023 10:42 AM Reporting Lab: [facility] [place] [place] [facility] [address] [facility] [address] Performing Lab: [facility]ITALUSETS [facility] [address] [facility] [address] [facility] TRN [facility]ITAL[facility] LIVER FUNCTION ALBUMIN [MASS/VOLUM E] IN SERUM OR PLASMA 3.8 g/dL 3.5 - 5.0 09/24 Specimen Type: SERUM No comment entered. Ordering Provider: NIKITA KIRBY Report Released Date/Time: Sep 22, 2023 10:42 AM Reporting Lab: [facility] [place] [place] [facility] [address] [facility] [address] Performing Lab: [facility]ITALUSETS [facility] [address] [facility] [address] [facility]TRN [facility]USE [facility] LIVER FUNCTION ALKALINE PHOSPHATASE [ENZYMATIC ACTIVITY/VO LUME] IN SERUM OR PLASMA 98 U/L 40 - 150 09/24 Specimen Type: SERUM No comment entered. Ordering Provider: NIKITA KIRBY Report Released Date/Time: Sep 22, 2023 10:42 AM Reporting Lab: [place] [facility] [place] [facility] [address] [facility] [address] Per[place] Lab: [place] [facility] [place] [facility] [address] [facility] [address] [place] [facility] LIVER FUNCTION ASPARTATE AMINOTRANSF ERASE [ENZYMATIC ACTIVITY/VO LUME] IN SERUM OR PLASMA 27 U/L 5 - 34 09/24 Specimen Type: SERUM No comment entered. Ordering Provider: NIKITA KIRBY Report Released Date/Time: Sep 22, 2023 10:42 AM Reporting Lab: [place] [facility] [place] [facility] [address] [facility] [address] Per[place] Lab: [place] [place] [facility] [address] [facility] [address] [place] [facility] LIVER FUNCTION ALANINE AMINOTRANSF ERASE [ENZYMATIC ACTIVITY/VO LUME] IN SERUM OR PLASMA 38 U/L 09/24 Specimen Type: SERUM No comment entered. Ordering Provider: NIKITA KIRBY Report Released Date/Time: Sep 22, 2023 10:42 AM Reporting Lab: [place] [facility] [facility] [address] [facility] [address] Performing Lab: [place] [facility] [address] [facility] [address] [place] [facility] LIVER FUNCTION BILIRUBIN.T OTAL [MASS/VOLUM E] IN SERUM OR PLASMA 0.9 mg/dL 0.2 - 1.2 09/24 Specimen Type: SERUM No comment entered. Ordering Provider: NIKITA KIRBY Report Released Date/Time: Sep 22, 2023 10:42 AM Reporting Lab: [place] [facility] [place] [facility] [address] [facility] [address] Per[place] Lab: [place] [facility] [address] [facility] [address] [place] [facility] BASIC METABOLIC PANEL (non-fast ing) UREA NITROGEN [MASS/VOLUM E] IN SERUM OR PLASMA 14 mg/dL 7 - 25 01/29 /2024 Specimen Type: SERUM No comment entered. Ordering Provider: NIKITA KIRBY Report Released Date/Time: Sep 22, 2023 10:42 AM Reporting Lab: [facility] HOSPITALN [address] [address] Performing Lab: [address] [address] [facility] BASIC METABOLIC PANEL (non-fast ing) GLUCOSE [MASS/VOLUM E] IN SERUM OR PLASMA 67 mg/dL 65 - 100 09/24 Specimen Type: SERUM No comment entered. Ordering Provider: NIKITA KIRBY Report Released Date/Time: Sep 22, 2023 10:42 AM Reporting Lab: [facility] [address] [address] Performing Lab: [address] [address] [facility] BASIC METABOLIC PANEL (non-fast ing) SODIUM [MOLES/VOLU ME] IN SERUM OR PLASMA 139 mmol/L 135 - 145 09/24 Specimen Type: SERUM No comment entered. Ordering Provider: NIKITA KIRBY Report Released Date/Time: Sep 22, 2023 10:42 AM Reporting Lab: [address] [address] Performing Lab: [facility]ITALN [address] [address] [facility] BASIC METABOLIC PANEL (non-fast ing) POTASSIUM [MOLES/VOLU ME] IN SERUM OR PLASMA 4.4 mmol/L 3.5 - 5.0 09/24 Specimen Type: SERUM No comment entered. Ordering Provider: NIKITA KIRBY Report Released Date/Time: Sep 22, 2023 10:42 AM Reporting Lab: [facility] [address] [address] Performing Lab: [facility] [place] [facility] [address] [facility] [address] [facility] BASIC METABOLIC PANEL (non-fast ing) CHLORIDE [MOLES/VOLU ME] IN SERUM OR PLASMA 104 mmol/L 100 - 110 09/24 Specimen Type: SERUM No comment entered. Ordering Provider: NIKITA KIRBY Report Released Date/Time: Sep 22, 2023 10:42 AM Reporting Lab: [facility] [address] [facility] [address] Performing Lab: [facility] [address] [facility] [address] [facility] BASIC METABOLIC PANEL (non-fast ing) CARBON DIOXIDE, TOTAL [MOLES/VOLU ME] IN SERUM OR PLASMA 29 meq/L 20 - 30 09/24 Specimen Type: SERUM No comment entered. Ordering Provider: NIKITA KIRBY Report Released Date/Time: Sep 22, 2023 10:42 AM Reporting Lab: [address] [address] Performing Lab: [address] [address] [facility] BASIC METABOLIC PANEL (non-fast ing) CREATININE [MASS/VOLUM E] IN SERUM OR PLASMA 1.19 mg/dL 0.50 - 1.40 09/24 Specimen Type: SERUM No comment entered. Ordering Provider: NIKITA KIRBY Report Released Date/Time: Sep 22, 2023 10:42 AM Reporting Lab: [address] [address] Performing Lab: [address] [address] [facility] BASIC METABOLIC PANEL (non-fast ing) GLOMERULAR FILTRATION RATE/1.73 SQ M.PREDICTED [VOLUME RATE/AREA] IN SERUM, PLASMA OR BLOOD BY CREATININE- BASED FORMULA (CKD-EPI 2020) 66 mL/min 60 09/24 Specimen Type: SERUM No comment entered. Ordering Provider: NIKITA KIRBY Report Released Date/Time: Sep 22, 2023 10:42 AM Reporting Lab: [facility] [place] [facility] [address] [facility] [address] Performing Lab: [facility] [place] [facility] [address] [facility] [address] [facility] [place] [facility] Vital Signs Combined list of inpatient and outpatient Vital Signs from Department of Defense and Veterans Affairs, ranging from 12 months to all on record, depending upon the facility. Vital Sign Value Date Comments Source SYSTOLIC BLOOD PRESSURE 145 11/27/19 25 09:36:28 [facility] [place] [facility] DIASTOLIC BLOOD PRESSURE 80 025 09:36:28 [facility] [place] [facility] PULSE OXIMETRY 98 11/26/2024 09:36:28 [facility] [place] [facility] WEIGHT 181 11/26/2024 09:36:28 [facility] [place] [facility] BMI 25 kg/m2 11/26/2024 09:36:28 [facility] [place] [facility] PULSE 66 11/26/2024 09:36:28 [facility] [place] [facility] RESPIRATION 18 11/26/2024 09:36:28 [facility] [place] [facility] Encounters Combined list of: 1) Encounters from Department of Veterans Affairs facilities going backup to the last 18 months, not all VA inpatient encounters are included; 2) Encounters from the Department of Defense facilities going backup to 280 months. Location Location Details Encounter Type Encounter Number Reason For Visit Attending Provider ADM Date DC Date Status Disposition Source [facility] [place] [facility] En[facility] [id number] 11/08 [facility] [place] [facility] [place] [facility] En[facility] [id number] 02/04 [facility] [place] [facility] [place] [facility] En[facility] [id number] ZAKIRAIS 03/03 [facility] [place] [facility] [place] [facility] En[facility] [id number] 05/27 [facility] [place] [facility] [place] [facility] En[facility] [id number] [facility] [place] [facility] [place] [facility] FIT SPECTACLES MONOFOCAL [id number] Diagnos is: ICD-10- CM Z46.0 Encount er for fit/adj st of spectac les and contact lenses CORY DAVILA 06/23 [facility] [place] [place] [facility] Outpatient Encounter [id number] 09/22 [facility] Outpatient Encounter [id number] 09/25 [facility] Outpatient Encounter [id number] 09/25 [facility] OFFICE O/P EST LOW 20 MIN [id number] Diagnos is: ICD-10- CM I25.10 [place] heart disease of [place] coronar y artery w/o ang pctrs MATILDA SANTOS 09/25 [facility] [place] [facility] En[facility] [id number] 11/25 [facility] [place] [facility] [place] [facility] En[facility] [id number] 11/26 [facility] [place] [facility] [place] [facility] OFFICE O/P EST MOD 30 MIN [id number] Diagnos is: ICD-10- CM I25.10 [place]scl heart disease of [place] coronar y artery w/o ang pctNIKITA Joseph 11/26 [place] [facility] [place] [place] [facility] Outpatient Encounter [id number] 11/27 [place] [facility] [place] [facility] [place] [place] [facility] Outpatient Encounter [id number] 01/09 [place] [facility] Social History Combined list of available smoking, tobacco, and other social history from Department of Defense and Veterans Affairs facilities. Social History Type Response Date Comment Source Tobacco [facility] status [facility] NEVER USED CIGARETTES 09/25/2024 [facility] OTHER TYPE 09/25/2024 [facility] History of tobacco use [facility] 11/23/2022 [facility] [place] [facility] History of tobacco use [facility] 10/13/2022 [facility] History of tobacco use [facility] 03/03/2021 [facility] [place] [facility] History of tobacco use NJ-TOBACCO NEVER USED 03/01/2020 [place] [facility] [place] [facility] History of tobacco use NJ-TOBACCO NEVER USED 12/09/2018 [facility] [place] [facility] History of tobacco use LIFETIME NON-TOBACCO USER 09/17/2017 [facility] [place] [facility] History of tobacco use LIFETIME NON-TOBACCO USER 08/08/2016 [facility] [place] [facility] History of tobacco use LIFETIME NON-TOBACCO USER 08/16/2015 [facility] [place] [facility] History of tobacco use LIFETIME NON-TOBACCO USER 03/07/2012 [facility] [place] [facility] History of tobacco use CURRENT SMOKER 01/24/2011 Pt states smokes marijuana cig one a week [facility] [place] [facility] Plan of Care List of future care activities from Department of Veterans Affairs facilities. Additional future care activities may be listed in the Assessment and Plan section. Date/Time Care Activity Care Activity Detail Facili ty 07/21/2025 AMBULATORY - NONE AMBULATORY - NONE [facility]
[2025-04-21 09:46] VITALS: BP 120/80; PULSE 65; BMI 24.2
--- NOTE | 2025-04-21 09:46 | MHC.OFFVIS ---
Vital Signs 04/21/25 09:46 Height 6 ft Weight 178 lb 9.191 oz BMI 24.2 BP 120/80 Blood Pressure Location Lt brachial Position Sitting Pulse 65 Intake Visit Reasons: 1 yr s/p echo Intake Note: 1 year follow-up with ekg (no echo) feeling good Glass Breaker Required: No Allergies shellfish derived (SHELLFISH DERIVED) Allergy (Severe, Verified 03/26/25 08:58) HIVES, itching shellfish Allergy (Severe, Uncoded 03/26/25 08:58) Hives, itching Medication List - Last Reconciled 04/21/25 by Taz Petit MD aspirin (Adult Low Dose Aspirin) 81 mg PO DAILY atorvastatin 40 mg PO BEDTIME cholecalciferol (vitamin D3) 100 mcg PO DAILY diclofenac sodium 1% (Arthritis Pain (diclofenac)) 2 grams topical QID metoprolol succinate ER 50 mg PO DAILY HPI Comments Details: Herbert comes for follow-up. He has been doing well. He has been dancing regularly and being active and has no exertional chest pain. He is taking all his medications. He had also has no symptoms of rapid heart rate or fast heartbeat. No lightheadedness, syncope. No heart failure symptoms. Taking all his medications. Most recent lipid panel showed LDL of 70 and HDL in the 50s [facility] Medical History SVT (supraventricular tachycardia) Allergic rhinitis Vitamin D deficiency Hypercholesterolemia Coronary artery disease Hypertension Erectile dysfunction Surgical History Hx of repair of right rotator cuff (01/2017) Hx of colonoscopy (2018) History of hernia repair Family History Father Diabetes Mother CVD (cardiovascular disease) Social History Are you a primary healthcare analyst to a significant other at home: No Do you presently have visiting nurse or other home services: No Alcohol intake: current Alcohol intake frequency: a few times a month Patient Tobacco Use Status: Never used Tobacco Years Smoked: smokes pot Current occupational status: retired 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 Cognitive needs: No Hearing needs: No Vision needs: No Review of Systems Const Denies chills, Denies fatigue, Denies fever(s), Denies frequent falls, Denies weakness, Denies weight gain and Denies weight loss ENT Denies dizziness Card Denies chest pain, Denies leg edema, Denies lightheadedness, Denies palpitations, Denies dyspnea, Denies dyspnea on exertion, Denies orthopnea and Denies other (loss of consciousness) Resp Denies cough, Denies dyspnea and Denies dyspnea on exertion GI Denies hematochezia and Denies change in stool character Musc Denies abnormal gait, Denies muscle weakness, Denies numbness, Denies radiating pain into limb and Denies tingling Neuro Denies abnormal gait, Denies dizziness, Denies frequent falls, Denies numbness, Denies tingling and Denies weakness Endo Denies fatigue and Denies palpitations Physical Exam Vital Signs: Last Vital Signs Pulse 65 04/21/25 09:46 BP 120/80 04/21/25 09:46 BMI result Body Mass Index 24.2 Const General: cooperative, comfortable, no acute distress, alert, awake and well groomed Nutritional Appearance: thin Orientation/consciousness: patient oriented x3 Limitations: no limitations Neck Neck: Yes trachea midline, Yes supple and Yes no JVD Carotids: no bruits Resp Effort & Inspection: normal respiratory effort Auscultation: clear to auscultation bilaterally Cardio Jugular venous distension: no JVD Palpation: normal PMI Rate: regular rate Rhythm: regular rhythm Heart sounds: S1 normal heart sound present and S2 normal heart sound present GI Auscultation: normal bowel sounds Skin General skin exam: no rashes or lesions noted Neuro General: patient oriented x3 and no focal motor deficits Extrem General: Yes no clubbing, cyanosis or edema Psych Appearance: grossly normal Office Procedures EKG Details: EKG shows normal sinus rhythm with left axis deviation otherwise normal EKG [id number], Complete Assessment & Plan Assessment & Plan (1) Coronary artery disease: Comment: Catheterization done [address] Petit. 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 70% lesion in the mid LAD. Manage medically with no symptoms of angina at high workload Code(s): I25.10 - Atherosclerotic heart disease of [place] coronary artery without angina pectoris Category: Medical Qualifiers: Associated angina: without angina Coronary Disease-Associated Artery/Lesion type: [place] artery [place] vs. transplanted heart: [place] heart Qualified Code(s): I25.10 - Atherosclerotic heart disease of [place] coronary artery without angina pectoris Plan: CAD stable with no current symptoms at high workload. Continue aggressive medical therapy. Continue aspirin. Importance of high-intensity statin therapy was discussed with well optimized LDL. Encouraged to maintain activity level as tolerated. Blood pressure is currently well optimized and continue metoprolol therapy. Advised to call me with any anginal symptoms. (2) SVT (supraventricular tachycardia): Code(s): I47.1 - Supraventricular tachycardia Category: Medical Plan: SVT just controlled on metoprolol therapy has had no recurrence. Will continue with medical therapy. Vagal maneuvers were discussed. Avoidance of stimulants was discussed. No change therapeutic approach. Will follow up in the clinic in 1 year's time, sooner p.r.n.. Thank you for allowing me to partake in his care Coding Level of Care Code Est Pt Level 4 (77693) Complex EM visit Add On G2211 Diagnoses Coronary artery disease involving [place] coronary artery of [place] heart without angina pectoris I25.10 Associated angina: without angina Coronary Disease-Associated Artery/Lesion type: [place] artery [place] vs. transplanted heart: [place] heart SVT (supraventricular tachycardia) I47.1 CPT Codes EKG - CPT: [id number]-[id number], Complete ([id number])
--- OUTSIDE RECORDS SUMMARY | 2025-04-21 10:21 | XMS_ITS | Patient Health Record ---
Author Organization [facility] Address [address] [place] [address] Care Team Providers Care University Professor Name Role Phone Ziggy Dey MD Primary Care Provider Deandre Gant Jr Unavailable [phone] Allergies Allergen (clinical drug ingredient) Drug/Non Drug Allergy documented on EMR Reaction Allergy Type Onset Date Status Shellfish (FN) shellfish (uncoded) Unknown Allergy Active Reason For Referral No Information Medications Medication SIG (Take, Route, Frequency, Duration) Notes Start Date End Date Status Metoprolol Succinate ER 50 MG TAKE 1 TABLET BY MOUTH EVERY DAY Oral for 90 Active Vitamin D-3 1000 UNIT 2 capsule Orally O nce a day Active Sildenafil Citrate 100 MG Orally Not-Taking Aspir-81 81 MG 1 tablet Orally Once a day Active Atorvastatin Calcium 80 MG 1 tablet Orally Once a day Active Immunizations Vaccine Route Administration Date Status Comme nts Influenza Unknown 06/19/2023 Administered Social History Tobacco Use: Social History Observation Description Date Details (start date - stop date) Never Smoker NA - NA Tobacco Use/Smoking Question Answer Notes Patient is a nonsmoker Alcohol Screen Question Answer Notes Did you have a drink contain ing alcohol in the past year? Yes How often did you have a dri nk containing alcohol in the past year? Monthly or less (1 point) How many drinks did you have on a typical day when you were drinking in the past year? 1 or 2 drinks (0 point) How often did you have 6 or more drinks on one occasion in the past year? Never (0 point) Points 1 Interpretation Negative Section Notes: occasional beer occasional beer Problems Problem Type SNOMED Code ICD Code Onset Dates Problem Status W/U Status Risk Notes Problem 325598721 Colon cancer screening (Z12.11) Active confirmed Problem Personal history of colonic polyps (Z86.010) Active confirmed Problem 29765731 Encounter for other preprocedural examination (Z01.818) Active confirmed Problem 032183133 Long-term use of aspirin therapy (Z79.82) Active confirmed Plan Of Treatment Future Test Test Name Order Date COLONOSCOPY 05/09/2018 COLONOSCOPY 12/03/2023 Insurance Providers Payer Name Payer Address Payer Phone Subscriber Number Group Number Insured Name Patient Relationship to Insured Coverage Start Date Coverage End Date MEDICARE OF [place] [address] [place] [address] [id number] ROXANNE MILLS Self - patient is the insured MEDEX ATTN CLAIMS [address] [place] [address] [id number] ROXANNE MILLS Self - patient is the insured Medical (General) History Medical History History ICD Code Hyperlipidemia Coronary artery disease Hypertension Colonoscopy 06/13, tubular adenoma x2, f josefina-year followup Surgical History Surgery Date(Month/Year) rotator cuff repair right 01/2017 bilateral inguinal hernia repairs umbilical hernia repair
--- OUTSIDE RECORDS SUMMARY | 2025-04-21 10:22 | XMS_ITS | Clinical Summary ---
Author Organization [facility] Address [address] [place] [address] Phone Care Team Providers Care Stripping And Booking Machine Operator Name Role Phone Katy Han MD Primary Care Provider [phone]- [phone] Allergies Active Allergy Reactions Criticality Noted Date [...] topic Medical Devices Not on file Insurance [employer] CROSS MEDEX SUPPLEMENT MEDICARE PART A & B [facility] BLUE CROSS MEDEX SUPPLEMENT MEDICARE PART A & B [facility] BLUE CROSS MEDEX SUPPLEMENT MEDICARE PART A & B [facility] MEDEX SUPPLEMENT MEDICARE PART A & B [facility] Lesson Prep MEDEX SUPPLEMENT MEDICARE PART A & B [facility] Lesson Prep MEDEX SUPPLEMENT MEDICARE PART A & B [facility] Care Teams Stripping And Booking Machine Operator Relationship Specialty Start Date End Date Katy Han MD [address] [place] [address] PCP - General 06/14/17 Additional Source Comments The information contained in this document represents components of the legal health record. It is not the complete legal health record.[facility]
== END 2025-04-21 10:06 | disposition home or self-care (01) ==
LOC: HO.HCS 09:43
PROVIDERS: PCP Internal Medicine; Visit Provider Internal Medicine Cardiovascular Disease
DX: I25.10 Atherosclerotic heart disease of native coronary artery without angina pectoris (principal); I47.10 Supraventricular tachycardia, unspecified
CPT/HCPCS: 93010; 99214; G2211

== ENCOUNTER → 2025-04-21 09:42 | Outpatient (BNVA) | payer MEDICARE, SELFPAY | PROVIDERS: PCP Internal Medicine; Visit Provider Internal Medicine Cardiovascular Disease | DX: I25.10 Atherosclerotic heart disease of native coronary artery without angina pectoris (principal); I47.10 Supraventricular tachycardia, unspecified; I10 Essential (primary) hypertension | CPT/HCPCS: 93005; 99212 ==

== ENCOUNTER 2025-06-01 07:55 | Outpatient (REF) | payer MEDICARE, SELFPAY ==
--- OUTSIDE RECORDS SUMMARY | 2024-02-05 03:30 | XMS_ITS ---
Author Organization [facility] Address [address] [place] [address] Care Team Providers Care Ward Clerk Name Role Phone Ziggy Dey MD Primary Care Provider Deandre Gant Jr [phone] REASON FOR VISIT screening colon Problems Problem Type SNOMED Code ICD Code Onset Dates Problem Status W/U Status Risk Notes Problem History of polyp of colon (situation) (066003467) Personal history of colonic polyps (Z86.010) Active confirmed Encounters Encounter Location Date Provider Diagnosis [facility] [place] Outpatient [address] [place] [phone] 02/05/2024 Deandre Ga Jr Encounter for screening colonoscopy Z12.11 and Personal history of colonic polyps Z86.010 Assessments Encounter Date Diagnosis (ICD Code) Assessment Notes Treatment Notes Treatment Clinical Notes Section Notes 02/05/2024 Encounter for screening colonoscopy (ICD-10 - Z12.11) 02/05/2024 Personal history of colonic polyps (ICD-10 - Z86.010) Plan Of Treatment No Information Progress Notes * DARIUS MILLSRODOB:1955 (69 yo M)Acc No.[id number]:02/05/2024 COLON WITH MAC Patient: ROXANNE INGRAM Provider: Alyssa Ga MD :1955 A ge:68 Y S ex:Male Date:02/05/2024 Address:[address] [place], [place] [id number] Pcp:Ziggy Dey MD Subjective: * Chief Complaints: [...] 0 02/05/2024 Generated for Betzaida piper/Ryan/Lashaitting on: 08:00 AM EDT
--- NOTE | ~2025-06-01 | US_ITS ---
CLINICAL HISTORY: R79.89 - Other specified abnormal findings of blood chemistry US abdomen complete with duplex and color Doppler Comparison: US/MS/SR - US ABDOMEN - 11/24/22 14:24 EDT Findings: The visualized pancreas, aorta, and inferior vena cava are unremarkable. Liver normal size and mildly echogenic throughout. Right lobe 11.3 cm length. No focal hepatic masses. Common duct 4.0 mm diameter. Physiologic distention of the gallbladder. No gallstones or sludge. No gallbladder wall thickening. No pericholecystic fluid. No sonographic Brown sign. Main portal vein antegrade. Right kidney normal size, 10.2 cm in length. Normal cortical width and echotexture. Midpole cyst measuring 6 x 6 x 4 mm stable. No nephrolithiasis. No hydronephrosis. Left kidney normal, 10.7 cm in length. Normal cortical width and echotexture. Lower pole cyst measuring 1.7 x 1.3 x 1.4 cm stable.No nephrolithiasis. No hydronephrosis. Spleen measures 7.9 cm. No splenic masses. No ascites. No lymphadenopathy. Impression: 1. Hepatic steatosis. 2. Stable renal cysts. This document has been electronically signed by: Ashok Weber MD on 06/01/2025 11:29:38
--- OUTSIDE RECORDS SUMMARY | 2025-06-01 08:00 | XMS_ITS | Patient Health Record ---
Author Organization [facility] Address [address] [place] [address] Care Team Providers Care Children'S Tutor Nursery Name Role Phone Ziggy Dey MD Primary Care Provider Deandre Gant Jr Unavailable Allergies Allergen (clinical drug ingredient) Drug/Non Drug [...] Problem Status W/U Status Risk Notes Problem 724914167 Colon cancer screening (Z12.11) Active confirmed Problem History of polyp of colon (situation) (585175110) Personal history of colonic polyps (Z86.010) Active confirmed Problem 01615775 Encounter for other preprocedural examination (Z01.818) Active confirmed Problem 312960861 Long-term use of aspirin therapy (Z79.82) Active confirmed Plan Of Treatment Future Test Test Name Order Date COLONOSCOPY 05/09/2018 COLONOSCOPY 12/03/2023 Insurance Providers Payer Name Payer Address Payer Phone Subscriber Number Group Number Insured Name Patient Relationship to Insured Coverage Start Date Coverage End Date [place]ARE OF [place] [address] [place] [address] [id number] ROXANNE MILLS Self - patient is the insured MEDEX ATTN CLAIMS [address] [place] [address] [id number] ROXANNE MILLS Self - patient is the insured Medical (General) History Medical History History ICD Code Hyperlipidemia Coronary artery disease Hypertension Colonoscopy 06/13, tubular adenoma x2, f josefina-year followup Surgical History Surgery Date(Month/Year) rotator cuff repair right 01/2017 bilateral inguinal hernia repairs umbilical hernia repair
--- OUTSIDE RECORDS SUMMARY | 2025-06-01 08:00 | XMS_ITS | Clinical Summary ---
Author Organization [facility] Address [address] [place] [address] Phone Care Team Providers Care Laundry Supervisor Name Role Phone Katy Han MD Primary Care Provider [phone]- [phone] Allergies Active Allergy Reactions Criticality Noted Date [...] (3 of 3) 07/28/2021 021, 05/30/2020, 08/19/2014 INFLUENZA VACCINE (#1) 2025 4, 05/27/2023, 05/27/2022, Additional history exists COVID-19 VACCINE (2 - 2024- season) 2025 08/24/2021 PNEUMOCOCCAL VACCINES (50+ years) (3 of [...] topic Medical Devices Not on file Insurance [employer] MEDEX SUPPLEMENT MEDICARE PART A & B [facility] [employer]ch[employer]ch[employer] publishing [place] MEDEX SUPPLEMENT MEDICARE PART A & B [facility] BLUE CROSS MEDEX SUPPLEMENT MEDICARE PART A & B [facility] [employer] publishing [place] MEDEX SUPPLEMENT MEDICARE PART A & B [facility] [employer] MEDEX SUPPLEMENT MEDICARE PART A & B [facility] mensch[employer]ch[employer] publishing [place] MEDEX SUPPLEMENT MEDICARE PART A & B [facility] Care Teams Laundry Supervisor Relationship Specialty Start Date End Date Katy Han MD [address] [place] [address] PCP - General 06/14/17 Additional Source Comments The information contained in this document represents components of the legal health record. It is not the complete legal health record.[facility]
== END 2025-06-01 07:56 | disposition home or self-care (01) ==
LOC: HO.US 07:55
PROVIDERS: PCP Internal Medicine; Visit Provider Internal Medicine
DX: R79.89 Other specified abnormal findings of blood chemistry (principal)
CPT/HCPCS: 76700

== ENCOUNTER 2025-07-27 13:24 | Outpatient (AMB) | payer MEDICARE, SELFPAY ==
--- NOTE | 2025-07-27 13:29 | MHC.PC.OV ---
Vital Signs 07/27/25 13:31 Height 6 ft Weight 182 lb 4 oz BMI 24.7 BP 120/84 Blood Pressure Location Lt brachial Position Sitting Pulse 66 Pulse Source Pulse Oximeter Temp 97.3 F Temp Source Temporal Artery Scan Pulse Oximetry (%) 100 Oxygen Delivery Method Room Air Intake Visit Reasons: Pain on RT back side (kidney area) Intake Note: Patient is here to follow up on Pain on right back side. Clinical Cytogeneticist Scientist Required: No Titrator: Not Required per policy Accompanied by: Self / Same As Patient Allergies shellfish derived (SHELLFISH DERIVED) Allergy (Severe, Verified 07/27/25 13:30) HIVES, itching shellfish Allergy (Severe, Uncoded 07/27/25 13:30) Hives, itching Medication List - Last Reconciled 07/27/25 by Latonya Palafox MD aspirin (Adult Low Dose Aspirin) 81 mg PO DAILY atorvastatin 40 mg PO BEDTIME cholecalciferol (vitamin D3) 100 mcg PO DAILY diclofenac sodium 1% (Arthritis Pain (diclofenac)) 2 grams topical QID metoprolol succinate ER 50 mg PO DAILY Tobacco use date assessed: 07/27/25 Fall risk assessment: No Falls in past year Last assessed Fall Risk: 07/27/25 Dental Screening Dental Screen Date: 07/27/25 Did you have a dental visit in the last 12 months?: Yes Did you have a dental problem in the last 6 months where you did not have access to dental care?: No Was dental information given to patient?: Patient has dentist HPI HPI Comments History of Present Illness Details The patient is a 69 year old M presenting with righ back pain. The patient reports experiencing pain in the side since mid-May after lifting a lawnmower. The patient describes the sensation as a muscle pull, with a current pain level of 5 or 6 out of 10. The pain is intermittent and occurs with twisting motions or when rising from a seated position. The patient finds that movement helps, while sitting for too long or tightness can exacerbate the pain. The patient has tried sauna, steam, whirlpool, and stretching for relief. Swimming was noted to provide significant relief. The patient does not tolerate ibuprofen well and does not feel the need for constant medication. The patient works out frequently, including exercises with weights, and takes a daily low-dose aspirin. [facility] Medical History (Updated 07/27/25 @ 14:06 by Latnoya Palafox MD) LFT elevation SVT (supraventricular tachycardia) Allergic rhinitis Vitamin D deficiency Hypercholesterolemia Coronary artery disease Hypertension Erectile dysfunction Surgical History Hx of repair of right rotator cuff (01/2017) Hx of colonoscopy (2018) History of hernia repair Family History (Updated 07/27/25 @ 13:29 by MARY Booth) Father Diabetes Mother CVD (cardiovascular disease) Social History (Updated 07/27/25 @ 13:35 by MARY Booth) Housing: House Are you a primary pet care associate to a significant other at home: No Do you presently have visiting nurse or other home services: No Alcohol intake: current Alcohol intake frequency: a few times a month Patient Tobacco Use Status: Never used Tobacco Years Smoked: smokes pot e-Cigarette/Vaping Use: Never Used Second Hand Smoke Exposure: No Substance Use Type: Marijuana Substance Use Frequency: Daily service: No Current occupational status: retired 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 Cognitive needs: No Hearing needs: No Vision needs: Yes (Glasses) Questionnaire Thrive Questionnaire Date Thrive assessed: 07/27/25 I am a: Patient What is your living situation today?: I have a steady place to live Within the past 12 months, did the food you bought not last and you didn't have the money to get more?: Never true Within the past 12 months, did you worry whether your food would run out before you got money to buy more?: Never true Do you have trouble paying for medicines?: No Do you have trouble getting transportation to medical appointments?: No Do you have trouble paying your heating and electricity bill?: No Do you have trouble taking care of your child, family member or friend?: No Do you have trouble with day-to-day activities such as bathing, preparing meals, shopping, managing finances, etc.?: No Are you currently unemployed and looking for a job?: No Are you interested in more education?: No Please select the resources that you would like help with: None Currently or been in a relationship where the following occur: No concerns reported THRIVE Score: 0 AUDIT C Alcohol Use Questionnaire (AUDIT-C) 1. How often do you have a drink containing alcohol?: 2-4 times a month 2. How many drinks containing alcohol do you have on a typical day when you are drinking?: 1 or 2 3. How often do you have six or more drinks on one occasion?: Never Total Score: 2 EV-7 AMB Questionnaire EV-7 Date EV - 7 assessed: 07/27/25 Feeling nervous, anxious, or on edge: 0 = Not at all Not being able to stop or control worryin = Not at all Worrying too much about different things: 0 = Not at all Trouble relaxin = Not at all Being so restless that it is hard to sit still: 0 = Not at all Becoming easily annoyed or irritable: 0 = Not at all Feeling afraid as if something awful might happen: 0 = Not at all Total EV-7 score (0-4 normal; 5-9 mild; 10-14 moderate; 15-21 severe): 0 Source: Developed by Drs. Chandrakant Sol, Melida Richardson, Demetrius Valladares and colleagues, with an educational nicolle from [employer]. Review of Systems Const Details: As per HPI. Physical exam (Primary Care) Vital Signs: Last Vital Signs Temp 97.3 F 07/27/25 13:31 Pulse 66 07/27/25 13:31 BP 120/84 07/27/25 13:31 Pulse Ox 100 07/27/25 13:31 Oxygen Delivery Method Room Air 07/27/25 13:31 BMI result Body Mass Index 24.7 Tobacco/Smoking Status: Tobacco use Status Tobacco use date assessed 07/27/25 07/27/25 13:36 Patient Tobacco Use Status Never used Tobacco 07/27/25 13:36 e-Cigarette/Vaping Use Never Used 07/27/25 13:36 Thrive Assessment: Date of Thrive Assessment Date Thrive assessed 07/27/25 07/27/25 13:36 Currently or been in a relationship where the following occur: No concerns reported Const Other: Pertinent findings are in BOLD GENERAL APPEARANCE NAD, activity normal for age, well developed/ well nourished, no cyanosis, pallor, or diaphoresis. EYES lids/conjunctiva normal. EARS/NOSE/THROAT Mucous membranes moist, nares normal, lips/teeth normal uvula midline without oral pharyngeal erythema, exudate or swelling TMs normal bilaterally. No lymphangitis/lymphedema. HEAD/NECK normocephalic atraumatic, no facial trauma, neck is supple. RESPIRATORY respiratory effort normal, speaks in full sentences, no tripod position, no accessory muscle use. Lungs clear to auscultation without rhonchi, wheezes, rales CARDIAC Regular rate and rhythm, no edema. ABDOMINAL Soft, ND/NT. No evidence of fluid wave. No pulsatile masses on exam, rebound tenderness, Brown sign or pain over Mcburney's point. MUSCLES/EXTREMITIES No abnormal range of motion, no swelling. Tender muscle spasm on right paraspinal muscles. SKIN Warm, pink and dry. No rashes, dermatoses, petechiae or lesions. NEUROLOGICAL Speech is clear and appropriate. Normal level of consciousness. Gait and coordination are normal. 5/5 strength in all extremities. PSYCH Normal mood and affect. Judgement/competence is appropriate Coding Level of Care Code Est Pt Level 3 (84257) Diagnoses Back pain M54.9 Assessment & Plan Assessment & Plan (1) Back pain: Code(s): M54.9 - Dorsalgia, unspecified Category: Medical Plan: - The patient's side pain is likely muscular in origin, consistent with a muscle tear or contraction, given the mechanism of injury and the improvement with swimming. - Lidocaine patch ordered. - The patient can also use the topical arthritis cream they already possess on the affected area. - Recommended continuing stretching, particularly before workouts, and swimming. - Tylenol was suggested as an option for pain relief. - The patient was advised to follow up if the pain worsens or does not improve. Plan I discussed with the patient that the side pain, which started after lifting a lawnmower, is consistent with a muscular injury, such as a muscle tear or contraction. I noted that the relief experienced with swimming further supports this diagnosis. We agreed on a plan to manage the pain, which includes trying a pain patch and using the topical arthritis cream the patient already has. I emphasized the importance of giving the injury more time to heal, continuing with gentle activities like swimming, and performing stretching exercises before working out. Since the patient does not tolerate ibuprofen well, I suggested Tylenol as an alternative for pain control. I advised the patient to call if the pain worsens or becomes severe. Medications: New lidocaine 4% 1 patch topical DAILY PRN 10 ea 0RF pain
[2025-07-27 13:31] VITALS: BP 120/84; PULSE 66; TEMP 36.3; O2SAT 100; BMI 24.7
--- OUTSIDE RECORDS SUMMARY | 2025-07-27 16:59 | XMS_ITS | Clinical Summary ---
Author Organization [facility] Address [address] [facility] [address] [place] [id number] Phone Care Team Providers Care Hydraulic Riveter Name Role Phone Katy Han MD Primary Care Provider [phone] Allergies Active Allergy Reactions Criticality Noted Date [...] topic Medical Devices Not on file Insurance [employer] MEDEX SUPPLEMENT MEDICARE PART A & B [facility] [place] MED[place] SUPPLEMENT MEDICARE PART A & B [facility] [employer] MEDEX SUPPLEMENT MEDICARE PART A & B [facility] [place] SUPP[place] MEDICARE PART A & B [facility] [employer] MEDEX SUPPLEMENT MEDICARE PART A & B [facility] [place] MED[employer] SUPPLEMENT MEDICARE PART A & B [facility] Care Teams Hydraulic Riveter Relationship Specialty Start Date End Date Katy Han MD [address] [place] [address] PCP - General 06/14/17 Additional Source Comments The information contained in this document represents components of the legal health record. It is not the complete legal health record.[facility]
== END 2025-07-27 14:11 | disposition home or self-care (01) ==
LOC: HO.HMCH 13:24
PROVIDERS: PCP Internal Medicine
DX: M54.9 Dorsalgia, unspecified (principal)

== ENCOUNTER → 2025-07-27 13:24 | Outpatient (BNVA) | payer MEDICARE, SELFPAY | PROVIDERS: PCP Internal Medicine | DX: M54.9 Dorsalgia, unspecified (principal) | CPT/HCPCS: 99212 ==